=== PATIENT | female | born 1950 | race Caucasian/White ===

== ENCOUNTER 2018-04-18 10:16 | Day surgery (SDC) | payer OTHER ==
[~2018-04-18] VITALS: Ht 175.3 cm; Wt 82.6 kg
[~2018-04-18 10:16] MED LIST: BUPIVAC MPF-EPI 0.5%-1:200000 30 ML VIAL. INJ ONE; HYDR200T71 PO; HYDROmorphone 2 MG/ML VIAL IV PRN; IBUP-1007 PO; IV RINGERS,LACTATED 1000ML 1,000 ML IV SCH; LIDOCAINE 1% PF 2 ML VIAL. ID PRN; MORPHINE SULFATE 4 MG/ML VIAL. IV PRN; ONDANSETRON PF 4 MG/2 ML VIAL. IV PRN; PROCHLORPERAZINE 10 MG/2 ML VIAL. IV PRN; SULI200T2 PO; fentaNYL PF VIAL 100 MCG/2 ML VIAL IV PRN
[2018-04-18] MEDS ORDERED: fentaNYL PF VIAL 100 MCG/2 ML VIAL ONE (10:50)
[2018-04-18] MEDS ORDERED: ROCURONIUM 50 MG/5 ML VIAL. ONE (10:50)
[2018-04-18] MEDS ORDERED: MIDAZOLAM HCL/PF 2 MG/2 ML VIAL. ONE (10:51)
[2018-04-18] MEDS ORDERED: HEPARIN PF 500 UNIT/5 ML DISP.SYRIN. IV ONE ×2 (11:09)
[2018-04-18] MEDS ORDERED: HEPARIN for IV BOLUS 10,000 UNIT/10 ML VIAL. ONE (11:09)
[2018-04-18] MEDS ORDERED: DEXAMETHASONE SOD PHOS 20 MG/5 ML VIAL. ONE (11:33)
[2018-04-18] MEDS ORDERED: LIDOCAINE 2% PF Vial for OR 5 ML VIAL. ONE (11:33)
[2018-04-18] MEDS ORDERED: PROPOFOL 20 ML IV ONE (11:33)
[2018-04-18] MEDS ORDERED: ONDANSETRON PF 4 MG/2 ML VIAL. ONE (11:33)
[2018-04-18] MEDS ORDERED: FAMOTIDINE 20 MG/2 ML VIAL ONE (11:33)
[2018-04-18] MEDS ORDERED: PHENYLEPHRINE in 0.9% NACL PF 1 MG/10 ML SYRINGE. IV ONE (11:42)
[2018-04-18] MEDS ORDERED: BUPIVACAINE MPF 0.5% 30 ML VIAL. ONE (11:46)
[2018-04-18] MEDS ORDERED: NEOSTIGMINE 10 MG/10 ML VIAL. ONE (12:14)
[2018-04-18] MEDS ORDERED: GLYCOPYRROLATE 1 MG/5 ML VIAL. ONE (12:14)
[2018-04-18] MEDS ORDERED: VASOPRESSIN 20 UNIT/ML VIAL. ONE (12:47)
[2018-04-18] MEDS ORDERED: SEVOFLURANE 61 TO 120 MINUTES. IH ONE (13:18)
--- NOTE | 2018-04-18 13:30 | PDOC4 ---
Operative Note Operative Note Date: 04/18/2018 Preoperative diagnosis: Esophageal cancer Postoperative diagnosis: Same Procedure: Left cephalic Port-A-Cath placement and gastrostomy tube placement Specimen: None Surgeon: Humza Dictation: Patient is a 67-year-old female has a nearly obstructing esophageal cancer is needing chemotherapy radiation for this she needs long-term venous access and a enteral feeding access. The procedure of Port-A-Cath placement and gastrostomy tube placement was explained to the patient in detail was benefits were also discussed including bleeding infection injury to intra-abdominal contents possibly needing further operations. Alternatives to this procedure also discussed with the patient is seemed to understand and gave verbal and written consent to have the procedure performed. Patient was taken to the operating room placed in supine position general anesthesia was initiated was patient was sleeping better neck and chest on both right and left were prepped and draped usual sterile fashion using ChloraPrep and area in the left deltopectoral groove was injected with percent Marcaine plain once this was injected and incision was made 15 blade scalpel was carried out through subcutaneous tissues using electrocautery divided hemostasis down to the cephalic vein which was controlled proximally distally with silk ligatures the vein was partially opened with 11 blade scalpel and a Salinger wire was placed into the cephalic vein passed into the superior vena cava as checked by fluoroscopy. Once this was complete a peel-away dilator was placed over the wire wire and the dilator removed catheter was placed in the peel-away which was then removed port was placed on the end of the catheter and a pocket on the anterior chest wall was made the catheter was sewn into place fluoroscopy showed good placement of the catheter within superior vena cava. There was good heparin flush as well as aspiration of blood. Wound was then closed in 2 layers the deep layer being 3-0 Vicryl and the skin reapproximated for septic to the Monocryl was then accessed again there was good blood return and it was locked with 1000 units of heparin 3 miller were used. This was then dressed with Mastisol Steri-Strips and island dressing. Once this was complete the patient's abdomen was prepped and draped usual sterile fashion using ChloraPrep and area in the left upper quadrant was injected with quarter percent Marcaine with epinephrine incision Bailin blade scalpel and a 5 mm Visiport was used to gain access to the abdomen and a pneumoperitoneum completed a second 5 mm port was placed in the left lower abdomen some adhesions in the left upper quadrant were taken down with sharp dissection at this point a 12 mm port was then placed in the left upper quadrant E stomach was grasped and brought up into the port and pneumoperitoneum was reduced and the port was removed the stomach was brought up into the wound 3-0 PDS was then used to tack the stomach stomach was then opened with a gastrotomy incision and a 22 Romansh gastrostomy tube was placed within the stomach the balloon was insufflated to 10 mL the 3-0 PDS was then used as pursestrings around the tube on the gastric surface and then attached to the fascia. The wound was then closed with a running 3-0 Vicryl and the skin was approximated for septic to Monocryl. Drain sponge was placed and the tube was anchored to the skin with a 3-0 nylon. The other port sites were closed for septic or Monocryl Mastisol Steri-Strips island dressings were applied. The patient was awakened and extubated in operating room taken to recovery in stable condition. All sponge instrument and needle counts listed as correct isthmic blood loss 30 mL. LASHAUN IZQUIERDO MD Apr 18, 2018 13:30
--- NOTE | 2018-04-18 13:36 | DISCH ---
DISCHARGE INSTRUCTIONS Condition on Discharge Condition on Discharge: Stable Activity After Discharge Activity Instructions for Disc: Avoid exertion Diet after Discharge Additional Diet Restrictions: May use the gastrostomy tube in 24 hours Wound Incision Care Other wound/incision instructi: May shower in 24 hours Contacting the after DC Call your doctor for: If your condition worsens Follow-Up Follow up with: Dr. Izquierdo in 2 weeks LASHAUN IZQUIERDO MD Apr 18, 2018 13:36
[2018-04-18] MEDS ORDERED: HYDR15SO9 PO (13:57)
[2018-04-18] MEDS ORDERED: KETOROLAC 30 MG/ML VIAL. IV ONE (14:00)
[2018-04-18 15:00] VITALS: BP 128/41
[2018-04-18] MEDS ORDERED: HYDROcodon/APAP 7.5/325MG ORAL 15 ML SOLUTION PO ONE (15:30)
== END 2018-04-18 16:04 | disposition home or self-care (01) ==
LOC: SURG 10:16
PROVIDERS: ATTEND Surgery
DX: C15.9 Malignant neoplasm of esophagus, unspecified (principal); M06.9 Rheumatoid arthritis, unspecified; H26.9 Unspecified cataract; M81.0 Age-related osteoporosis without current pathological fracture; M85.80 Other specified disorders of bone density and structure, unspecified site; L57.0 Actinic keratosis; Z90.49 Acquired absence of other specified parts of digestive tract; Z79.899 Other long term (current) drug therapy; Z96.652 Presence of left artificial knee joint; Z98.51 Tubal ligation status; Z82.49 Family history of ischemic heart disease and other diseases of the circulatory system; Z82.3 Family history of stroke; Z84.1 Family history of disorders of kidney and ureter; Z83.518 Family history of other specified eye disorder
CPT/HCPCS: 36561; 43653; A7015; C1788; J0696; J1100; J1644; J1885; J2001; J2250; J2370; J2405; J2704; J2710; J3010; J3490; 36556; 77001

== ENCOUNTER 2018-04-19 18:08 | Inpatient (IN) | payer OTHER ==
[~2018-04-19] VITALS: Ht 175.3 cm; Wt 84.0 kg
[~2018-04-19 18:08] MED LIST changes: -BUPIVAC MPF-EPI 0.5%-1:200000 30 ML VIAL. INJ ONE; +HYDR15SO9 PO; -HYDROmorphone 2 MG/ML VIAL IV PRN; -IV RINGERS,LACTATED 1000ML 1,000 ML IV SCH; -LIDOCAINE 1% PF 2 ML VIAL. ID PRN; -MORPHINE SULFATE 4 MG/ML VIAL. IV PRN; -ONDANSETRON PF 4 MG/2 ML VIAL. IV PRN; -PROCHLORPERAZINE 10 MG/2 ML VIAL. IV PRN; -fentaNYL PF VIAL 100 MCG/2 ML VIAL IV PRN
[2018-04-19 19:30] VITALS: BP 108/58
--- NOTE | 2018-04-19 19:30 | NUR ---
ADMIT Pt arrived on unit via gurney from [facility] ER. Pt fatigued, A/Ox4, room air. VSS, afebrile. Full admission assessment completed at this time. PEG tube in place, sutured, open to air. 2 Lap sites with steri strips in place on abdomen. Zander Cath Incision site Left Upper chest with steri strips, intact. Fall contact signed. Discussed plan of care, NPO, call for assistance. PEG site cleansed with chloraprep, drain sponge applied, suture intact. Lap site steri strips on, telfa islands changed at this time. Old saturated steri strips removed from Zander cath site, cleansed and applied 4x4 and tape. Admission orders rec'd at this time. Initiated new IV Access, IVF started and pain and nausea meds given. This RN called daughter to advise of admission. Call light w/ in reach, bed in low, locked position. Will continue to monitor closely.
[2018-04-19 21:00] VITALS: BP 105/68
[2018-04-19] MEDS: IV NORMAL SALINE 1000ML BAG 1,000 ML IV SCH (21:52)
--- NOTE | 2018-04-19 22:30 | NUR ---
Patient unable to void. Advised she has the urge to go, but unable to. Pt advised [facility] ED performed a catheter and removed 300cc about 1800. Bladder scan performed at this time and 251cc retained. Will encourage to urinate, and rescan as needed.
[2018-04-19] MEDS: ONDANSETRON PF 4 MG/2 ML VIAL. IV PRN (22:36)
[2018-04-19] MEDS: MORPHINE SULFATE 4 MG/ML VIAL. IV PRN (22:36)
[2018-04-19 23:00] VITALS: BP 105/68
[2018-04-20] VITALS (15 sets, daily range): BP systolic 84–127; BP diastolic 44–68
[2018-04-20 06:31] LABS: BASO % 0 % (0-3); EOS % 0 % (0-3); HEMATOCRIT 27.1 % (36.0-47.0); HEMOGLOBIN 8.2 g/dL (12.0-15.5); LYMPH # 0.2 x10^3/uL (1.0-4.8); LYMPH % 1 % (24-48); MEAN CORPUSCULAR HEMOGLOBIN 19 pg (25-35); MEAN CORPUSCULAR HGB CONC 30 g/dL (31-37); MEAN CORPUSCULAR VOLUME 62 fL (79-100); MONO # 1.4 x10^3/uL (0.0-1.1); MONO % 13 % (0-9); NEUT # 9.4 x10^3uL (1.8-7.7); NEUT % 86 % (31-73); PLATELET COUNT 204 x10^3/uL (140-400); RED BLOOD COUNT 4.36 x10^6/uL (3.50-5.40); RED CELL DISTRIBUTION WIDTH 26.2 % (11.5-14.5)
[2018-04-20 06:46] LABS: PROTHROMBIN TIME PATIENT 14.9 SEC (11.7-14.0)
--- NOTE | 2018-04-20 06:48 | NUR ---
Pt had repeat bladder scan and retaining 400-450cc. Patient does not have urge to urinate. paged to notify.
[2018-04-20 06:53] LABS: CALCIUM 8.6 mg/dL (8.5-10.1); GFR 55.1; POTASSIUM 4.3 mmol/L (3.5-5.1)
[2018-04-20 07:24] LABS: % LYMPHS 2 % (24-48)
[2018-04-20 07:25] LABS: % BANDS 49 % (0-9); % MONOS 6 % (0-10); % SEGS 43 % (35-66); PLT ESTIMATE ADEQUATE (ADEQUATE)
[2018-04-20 07:28] LABS: ANISOCYTOSIS MARKED; HYPOCHROMIA MOD; MICROCYTOSIS MARKED
[2018-04-20 07:29] LABS: POIKILOCYTOSIS PRESENT; POLYCHROMASIA PRESENT; SPHEROCYTES OCC; TARGET CELLS FEW
[2018-04-20 07:30] LABS: OVALOCYTES PRESENT
[2018-04-20 07:31] LABS: SCHISTOCYTES OCC
[2018-04-20] MEDS ORDERED: IV NORMAL SALINE 1000ML BAG 1,000 ML IV ONE (08:15)
--- NOTE | 2018-04-20 08:22 | RAD ---
EXAM: Supine AP view of the abdomen DATE: 04/20/2018 6:51 AM INDICATION: PEG MALFUNCTION COMPARISON: No Prior FINDINGS: No abnormal small or large bowel dilatation. Mild colonic stool content. No abnormal soft tissue mass effect. No suspicious calcifications are seen. Evaluation for free intraperitoneal gas is limited on this supine exam. Decreased bone mineral density. Right renal collecting system is seen, with minimal blunting of the calyces, likely mild hydronephrosis and and hydroureter. The left renal collecting system is only minimally seen. IMPRESSION: 1. No evidence of bowel obstruction. 2. PEG tube tip projects in the left upper quadrant, intraluminal positioning is not confirmed. 3. Mild right hydronephrosis and hydroureter. Only minimal opacification of the left renal collecting system, correlate for possible obstruction, left renal disease, or pace of contrast excretion. Ultrasound may provide additional details if clinically indicated. Electronically signed by: Keny Walter MD (04/20/2018 8:18 AM) [facility]
--- NOTE | 2018-04-20 08:46 | PDOC2 ---
QUINTONJANET Margaret APARTMENT MANAGER 04/20/18 0846: CONSULT Date of Consult Date of Consult DATE: 04/20/18 TIME: 08:39 Reason for Consult Reason for Consult: malpositioned g tube Referring Physician Referring Physician: ER Identification/Chief Complaint Chief Complaint leaking g tube Source Source: Chart review, Patient History of Present Illness Reason for Visit: G tube placed 04/[address] Ching for dysphagia and esophageal cancer. Attempts to use tube yesterday resulted in significant amount of leakage around tube. Seen in ER at [facility] contrasted KUB showed extravasation of contrast. Mild abdominal pain, no n/v Past Medical History Heme/Onc: Cancer (esophageal ) Psych: Depression Past Surgical History Past Surgical History: Cholecystectomy, Other (port, g tube) Family History Family History: Other (noncontributory to current illness ) Social History No ALCOHOL: none Drugs: None Lives: Alone Current Medications Current Medications Current Medications Sodium Chloride 1,000 ml @ 100 mls/hr Q10H IV Last administered on 04/19/18at 21:52; Start 04/19/18 at 21:00 Morphine Sulfate (Morphine Sulfate) 2 mg PRN Q4HRS PRN IV SEVERE PAIN Last administered on 04/19/18at 22:36; Start 04/19/18 at 21:00 Ondansetron HCl (Zofran) 4 mg PRN Q6HRS PRN IV NAUSEA/VOMITING 1ST CHOICE Last administered on 04/19/18at 22:36; Start 04/19/18 at 21:00 Sodium Chloride 1,000 ml @ 1,000 mls/hr 1X ONCE IV ; Start 04/20/18 at 08:15; Stop 04/20/18 at 09:14 Ceftriaxone Sodium (Rocephin) 1 gm Q24H IVP ; Start 04/20/18 at 09:00 Active Scripts Active Reported Hydrocodone-Acetamn 7.5-325/15 (Hydrocodone/Acetaminophen) 15 Ml Solution 15 Ml PO Q4HRS Plaquenil (Hydroxychloroquine Sulfate) 200 Mg Tablet 200 Mg PO BID Sulindac 200 Mg Tablet 200 Mg PO BID Ibuprofen 600 Mg Tablet 600 Mg PO PRN Q6HRS PRN Allergies Allergies: Coded Allergies: No Known Drug Allergies (Unverified , 04/18/18) ROS General: No: Chills, Other (fevers) PSYCHOLOGICAL ROS: No: Anxiety, Depression Eyes: No Blurry vision, No Double vision HEENT: No: Heacaches, Sore Throat Hematological and Lymphatic: No: Bleeding Problems, Blood Clots Respiratory: No: Cough, Shortness of breath Cardiovascular: No Chest Pain, No Palpitations Gastrointestinal: No Nausea, No Vomiting Genitourinary: No Dysuria, No Retention Musculoskeletal: No Joint Pain, No Muscle Pain Neurological: No Bowel/Bladder ControlChng, No Impaired Coord/balance Skin: No Pruritus, No Rash Physical Exam General: Alert, Oriented X3, Cooperative, No acute distress HEENT: PERRLA, Mucous membr. moist/pink Lungs: Clear to auscultation, Normal air movement Heart: Regular rate, Normal S1, Normal S2, No murmurs Abdomen: Soft, Other (ND, NTTP, gtube noted, lap sites ) Extremities: No clubbing, No cyanosis Skin: No rashes, No breakdown Neuro: Normal gait, Normal speech Psych/Mental Status: Mental status NL, Mood NL MUSCULOSKELETAL: No deformity, No swelling Vitals VITALS Vital Signs Date Time Temp Pulse Resp B/P (MAP) Pulse Ox O2 Delivery O2 Flow Rate FiO2 04/20/18 07:10 118 18 91/63 (72) 94 Room Air 04/20/18 07:00 97.4 97.4 Labs Labs Laboratory Tests Test 04/20/18 05:25 04/20/18 05:54 White Blood Count 11.0 x10^3/uL (4.0-11.0) Red Blood Count 4.36 x10^6/uL (3.50-5.40) Hemoglobin 8.2 g/dL (12.0-15.5) Hematocrit 27.1 % (36.0-47.0) Mean Corpuscular Volume 62 fL (79-100) Mean Corpuscular Hemoglobin 19 pg (25-35) Mean Corpuscular Hemoglobin Concent 30 g/dL (31-37) Red Cell Distribution Width 26.2 % (11.5-14.5) Platelet Count 204 x10^3/uL (140-400) Neutrophils (%) (Auto) 86 % (31-73) Lymphocytes (%) (Auto) 1 % (24-48) Monocytes (%) (Auto) 13 % (0-9) Eosinophils (%) (Auto) 0 % (0-3) Basophils (%) (Auto) 0 % (0-3) Neutrophils # (Auto) 9.4 x10^3uL (1.8-7.7) Lymphocytes # (Auto) 0.2 x10^3/uL (1.0-4.8) Monocytes # (Auto) 1.4 x10^3/uL (0.0-1.1) Eosinophils # (Auto) 0.0 x10^3/uL (0.0-0.7) Basophils # (Auto) 0.0 x10^3/uL (0.0-0.2) Segmented Neutrophils % 43 % (35-66) Band Neutrophils % 49 % (0-9) Lymphocytes % 2 % (24-48) Monocytes % 6 % (0-10) Platelet Estimate Adequate (ADEQUATE) Large Platelets Few Polychromasia Present Hypochromasia Mod Poikilocytosis Present Anisocytosis Marked Microcytosis Marked Spherocytes Occ Target Cells Few Ovalocytes Present Schistocytes Occ Sodium Level 146 mmol/L (136-145) Potassium Level 4.3 mmol/L (3.5-5.1) Chloride Level 110 mmol/L (98-107) Carbon Dioxide Level 26 mmol/L (21-32) Anion Gap 10 (6-14) Blood Urea Nitrogen 39 mg/dL (7-20) Creatinine 1.0 mg/dL (0.6-1.0) Estimated GFR (Cockcroft-Gault) 55.1 Glucose Level 134 mg/dL (70-99) Calcium Level 8.6 mg/dL (8.5-10.1) Prothrombin Time 14.9 SEC (11.7-14.0) Prothromb Time International Ratio 1.2 (0.8-1.1) Laboratory Tests Test 04/20/18 05:25 04/20/18 05:54 White Blood Count 11.0 x10^3/uL (4.0-11.0) Red Blood Count 4.36 x10^6/uL (3.50-5.40) Hemoglobin 8.2 g/dL (12.0-15.5) Hematocrit 27.1 % (36.0-47.0) Mean Corpuscular Volume 62 fL (79-100) Mean Corpuscular Hemoglobin 19 pg (25-35) Mean Corpuscular Hemoglobin Concent 30 g/dL (31-37) Red Cell Distribution Width 26.2 % (11.5-14.5) Platelet Count 204 x10^3/uL (140-400) Neutrophils (%) (Auto) 86 % (31-73) Lymphocytes (%) (Auto) 1 % (24-48) Monocytes (%) (Auto) 13 % (0-9) Eosinophils (%) (Auto) 0 % (0-3) Basophils (%) (Auto) 0 % (0-3) Neutrophils # (Auto) 9.4 x10^3uL (1.8-7.7) Lymphocytes # (Auto) 0.2 x10^3/uL (1.0-4.8) Monocytes # (Auto) 1.4 x10^3/uL (0.0-1.1) Eosinophils # (Auto) 0.0 x10^3/uL (0.0-0.7) Basophils # (Auto) 0.0 x10^3/uL (0.0-0.2) Segmented Neutrophils % 43 % (35-66) Band Neutrophils % 49 % (0-9) Lymphocytes % 2 % (24-48) Monocytes % 6 % (0-10) Platelet Estimate Adequate (ADEQUATE) Large Platelets Few Polychromasia Present Hypochromasia Mod Poikilocytosis Present Anisocytosis Marked Microcytosis Marked Spherocytes Occ Target Cells Few Ovalocytes Present Schistocytes Occ Sodium Level 146 mmol/L (136-145) Potassium Level 4.3 mmol/L (3.5-5.1) Chloride Level 110 mmol/L (98-107) Carbon Dioxide Level 26 mmol/L (21-32) Anion Gap 10 (6-14) Blood Urea Nitrogen 39 mg/dL (7-20) Creatinine 1.0 mg/dL (0.6-1.0) Estimated GFR (Cockcroft-Gault) 55.1 Glucose Level 134 mg/dL (70-99) Calcium Level 8.6 mg/dL (8.5-10.1) Prothrombin Time 14.9 SEC (11.7-14.0) Prothromb Time International Ratio 1.2 (0.8-1.1) Assessment/Plan Assessment/Plan malpositioned g tube g tube only 2 days old--will require surgical repair Dr Vásquez plans today CANDICE VÁSQUEZ MD 04/20/18 1536: CONSULT Assessment/Plan Assessment/Plan Pt seen and examined. Agree with MsAilyn Euceda's note Pt with c/o mild soreness abd soft, mild TTP LUQ TO OR for replacement of G-tube R/R/B/A d/w pt. Risks, including, but not limited to: bleeding, infection, damage to surrounding structures, risk of anesthesia, risk of open. She appears to understand, her questions are answered and she elects to proceed. Thanks for consult! JANET EUCEDA APRN Apr 20, 2018 08:46 CANDICE VÁSQUEZ MD Apr 20, 2018 15:36
[2018-04-20] MEDS: ONDANSETRON PF 4 MG/2 ML VIAL. IV PRN (10:04)
[2018-04-20] MEDS: MORPHINE SULFATE 4 MG/ML VIAL. IV PRN (10:04)
[2018-04-20] MEDS: cefTRIAXone IV Push 1 GM VIAL. IVP SCH (10:04)
[2018-04-20] MEDS: IV NORMAL SALINE 1000ML BAG 1,000 ML IV SCH ×2 (10:05→18:17)
--- NOTE | 2018-04-20 10:57 | PDOC1 ---
History and Physical Date of Admission Date of Admission DATE: 04/20/18 TIME: 10:55 Identification/Chief Complaint Chief Complaint FAILED Attempts to use tube yesterday resulted in significant amount of leakage around tube. Past Medical History Heme/Onc: Cancer (esophageal ) Psych: Depression Past Surgical History Past Surgical History: Cholecystectomy, Other (port, g tube) Family History Family History: Hypertension, Other (noncontributory to current illness ) Social History Smoke: No ALCOHOL: none Drugs: None Current Medications Current Medications Current Medications Sodium Chloride 1,000 ml @ 100 mls/hr Q10H IV Last administered on 04/20/18 10:05; Start 04/19/18 at 21:00 Morphine Sulfate (Morphine Sulfate) 2 mg PRN Q4HRS PRN IV SEVERE PAIN Last administered on 04/20/18 10:04; Start 04/19/18 at 21:00 Ondansetron HCl (Zofran) 4 mg PRN Q6HRS PRN IV NAUSEA/VOMITING 1ST CHOICE Last administered on 04/20/18 10:04; Start 04/19/18 at 21:00 Sodium Chloride 1,000 ml @ 1,000 mls/hr 1X ONCE IV Last administered on 10:05; Start 04/20/18 at 08:15; Stop 04/20/18 at 09:14; Status DC Ceftriaxone Sodium (Rocephin) 1 gm Q24H IVP Last administered on 04/20/18 10: 04; Start 04/20/18 at 09:00 Active Scripts Active Reported Hydrocodone-Acetamn 7.5-325/15 (Hydrocodone/Acetaminophen) 15 Ml Solution 15 Ml PO Q4HRS Plaquenil (Hydroxychloroquine Sulfate) 200 Mg Tablet 200 Mg PO BID Sulindac 200 Mg Tablet 200 Mg PO BID Ibuprofen 600 Mg Tablet 600 Mg PO PRN Q6HRS PRN Allergies Allergies: Coded Allergies: No Known Drug Allergies (Unverified , 04/18/18) ROS General: YES: Fatigue PSYCHOLOGICAL ROS: No: Anxiety, Behavioral Disorder, Concentration difficultie , Decreased libido, Depression, Disorientation, Hallucinations, Hostility, Irritablity, Memory difficulties, Mood Swings, Obsessive thoughts, Physical abuse, Sexual abuse, Sleep disturbances, Suicidal ideation, Other Eyes: No Blurry vision, No Decreased vision, No Double vision, No Dry eyes, No Excessive tearing, No Eye Pain, No Itchy Eyes, No Loss of vision, No Photophobia , No Scotomata, No Uses contacts, No Uses glasses, No Other HEENT: No: Heacaches, Visual Changes, Hearing change, Nasal congestion, Nasal discharge, Oral lesions, Sinus pain, Sore Throat, Epistaxis, Sneezing, Snoring, Tinnitus, Vertigo, Vocal changes, Other ALLERGY AND IMMUNOLOGY: No: Hives, Insect Bite Sensitivity, Itchy/Watery Eyes, Nasal Congestion, Post Nasal Drip, Seasonal Allergies, Other Hematological and Lymphatic: No: Bleeding Problems, Blood Clots, Blood Transfusions, Brusing, Night Sweats, Pallor, Swollen Lymph Nodes, Other ENDOCRINE: No: Breast Changes, Galactorrhea, Hair Pattern Changes, Hot Flashes , Malaise/lethargy, Mood Swings, Palpitations, Polydipsia/polyuria, Skin Changes , Temperature Intolerance, Unexpected Weight Changes, Other Breast: No New/Changing Breast Lumps, No Nipple changes, No Nipple discharge, No Other Gastrointestinal: Yes Abdominal Pain; No Nausea, No Vomiting, No Diarrhea, No Constipation, No Melena, No Hematochezia, No Other Genitourinary: No Dysuria, No Frequency, No Incontinence, No Hematuria, No Retention, No Discharge, No Urgency, No Pain, No Flank Pain, No Other, No , No , No , No , No , No , No Musculoskeletal: No Gait Disturbance, No Joint Pain, No Joint Stiffness, No Joint Swelling, No Muscle Pain, No Muscular Weakness, No Pain In:, No Swelling In:, No Other Neurological: No Behavorial Changes, No Bowel/Bladder ControlChng, No Confusion , No Dizziness, No Gait Disturbance, No Headaches, No Impaired Coord/balance, No Memory Loss, No Numbness/Tingling, No Seizures, No Speech Problems, No Tremors, No Visual Changes, No Weakness, No Other Skin: No Dry Skin, No Eczema, No Hair Changes, No Lumps, No Mole Changes, No Mottling, No Nail Changes, No Pruritus, No Rash, No Skin Lesion Changes, No Other, No Acne Physical Exam Physical Exam hysical Exam General: Alert, Oriented X3, Cooperative, No acute distress HEENT: PERRLA, Mucous membr. moist/pink Lungs: Clear to auscultation, Normal air movement Heart: Regular rate, Normal S1, Normal S2, No murmurs Abdomen: Soft, Other (ND, NTTP, gtube noted, lap sites ) Extremities: No clubbing, No cyanosis Skin: No rashes, No breakdown Neuro: Normal gait, Normal speech Psych/Mental Status: Mental status NL, Mood NL MUSCULOSKELETAL: No deformity, No swelling General: Oriented X3, Cooperative HEENT: Atraumatic, EOMI Lungs: Normal air movement Heart: no gallops Breasts: Not examined Abdomen: No hepatosplenomegaly Rectal Exam: not examined PELVIC: Examination not indicated Extremities: No cyanosis Neuro: Normal speech, Cranial nerves 3-12 NL Psych/Mental Status: Mental status NL Vitals Vitals Vital Signs Date Time Temp Pulse Resp B/P (MAP) Pulse Ox O2 Delivery O2 Flow Rate FiO2 04/20/18 10:04 97 Room Air 04/20/18 09:58 111 16 103/66 (78) 04/20/18 07:00 97.4 97.4 Labs Labs Laboratory Tests Test 04/20/18 05:25 04/20/18 05:54 White Blood Count 11.0 x10^3/uL (4.0-11.0) Red Blood Count 4.36 x10^6/uL (3.50-5.40) Hemoglobin 8.2 g/dL (12.0-15.5) Hematocrit 27.1 % (36.0-47.0) Mean Corpuscular Volume 62 fL (79-100) Mean Corpuscular Hemoglobin 19 pg (25-35) Mean Corpuscular Hemoglobin Concent 30 g/dL (31-37) Red Cell Distribution Width 26.2 % (11.5-14.5) Platelet Count 204 x10^3/uL (140-400) Neutrophils (%) (Auto) 86 % (31-73) Lymphocytes (%) (Auto) 1 % (24-48) Monocytes (%) (Auto) 13 % (0-9) Eosinophils (%) (Auto) 0 % (0-3) Basophils (%) (Auto) 0 % (0-3) Neutrophils # (Auto) 9.4 x10^3uL (1.8-7.7) Lymphocytes # (Auto) 0.2 x10^3/uL (1.0-4.8) Monocytes # (Auto) 1.4 x10^3/uL (0.0-1.1) Eosinophils # (Auto) 0.0 x10^3/uL (0.0-0.7) Basophils # (Auto) 0.0 x10^3/uL (0.0-0.2) Segmented Neutrophils % 43 % (35-66) Band Neutrophils % 49 % (0-9) Lymphocytes % 2 % (24-48) Monocytes % 6 % (0-10) Platelet Estimate Adequate (ADEQUATE) Large Platelets Few Polychromasia Present Hypochromasia Mod Poikilocytosis Present Anisocytosis Marked Microcytosis Marked Spherocytes Occ Target Cells Few Ovalocytes Present Schistocytes Occ Sodium Level 146 mmol/L (136-145) Potassium Level 4.3 mmol/L (3.5-5.1) Chloride Level 110 mmol/L (98-107) Carbon Dioxide Level 26 mmol/L (21-32) Anion Gap 10 (6-14) Blood Urea Nitrogen 39 mg/dL (7-20) Creatinine 1.0 mg/dL (0.6-1.0) Estimated GFR (Cockcroft-Gault) 55.1 Glucose Level 134 mg/dL (70-99) Calcium Level 8.6 mg/dL (8.5-10.1) Prothrombin Time 14.9 SEC (11.7-14.0) Prothromb Time International Ratio 1.2 (0.8-1.1) Laboratory Tests Test 04/20/18 05:25 04/20/18 05:54 White Blood Count 11.0 x10^3/uL (4.0-11.0) Red Blood Count 4.36 x10^6/uL (3.50-5.40) Hemoglobin 8.2 g/dL (12.0-15.5) Hematocrit 27.1 % (36.0-47.0) Mean Corpuscular Volume 62 fL (79-100) Mean Corpuscular Hemoglobin 19 pg (25-35) Mean Corpuscular Hemoglobin Concent 30 g/dL (31-37) Red Cell Distribution Width 26.2 % (11.5-14.5) Platelet Count 204 x10^3/uL (140-400) Neutrophils (%) (Auto) 86 % (31-73) Lymphocytes (%) (Auto) 1 % (24-48) Monocytes (%) (Auto) 13 % (0-9) Eosinophils (%) (Auto) 0 % (0-3) Basophils (%) (Auto) 0 % (0-3) Neutrophils # (Auto) 9.4 x10^3uL (1.8-7.7) Lymphocytes # (Auto) 0.2 x10^3/uL (1.0-4.8) Monocytes # (Auto) 1.4 x10^3/uL (0.0-1.1) Eosinophils # (Auto) 0.0 x10^3/uL (0.0-0.7) Basophils # (Auto) 0.0 x10^3/uL (0.0-0.2) Segmented Neutrophils % 43 % (35-66) Band Neutrophils % 49 % (0-9) Lymphocytes % 2 % (24-48) Monocytes % 6 % (0-10) Platelet Estimate Adequate (ADEQUATE) Large Platelets Few Polychromasia Present Hypochromasia Mod Poikilocytosis Present Anisocytosis Marked Microcytosis Marked Spherocytes Occ Target Cells Few Ovalocytes Present Schistocytes Occ Sodium Level 146 mmol/L (136-145) Potassium Level 4.3 mmol/L (3.5-5.1) Chloride Level 110 mmol/L (98-107) Carbon Dioxide Level 26 mmol/L (21-32) Anion Gap 10 (6-14) Blood Urea Nitrogen 39 mg/dL (7-20) Creatinine 1.0 mg/dL (0.6-1.0) Estimated GFR (Cockcroft-Gault) 55.1 Glucose Level 134 mg/dL (70-99) Calcium Level 8.6 mg/dL (8.5-10.1) Prothrombin Time 14.9 SEC (11.7-14.0) Prothromb Time International Ratio 1.2 (0.8-1.1) Images Images TECHNIQUE: Helical CT of the abdomen and pelvis without intravenous contrast. Axial, coronal and sagittal reformatted images were generated. PQRS compliance statement - One or more of the following individualized dose reduction techniques were utilized for this study: 1. Automated exposure control 2. Adjustment of the mA and/or kV according to patient size 3. Use of iterative reconstruction technique FINDINGS: Lack of intravenous contrast limits evaluation of solid organs, vasculature, and lymph nodes. Lower chest: 4 mm lingular lung nodule is seen. Trace right pleural effusion. Dependent opacities bilaterally likely atelectasis. Linear opacity lingula likely scarring/atelectasis. Abdomen and Pelvis: Within the constraints of noncontrast exam: No focal liver lesion. Accounting for postcholecystectomy change, no biliary ductal dilatation. Spleen is unremarkable. Adrenal glands are normal. Pancreas is unremarkable. Kidneys are normal in size and shape. There is mild right hydronephrosis with mild right caliectasis and dilation of the proximal right ureter. However this gradually tapers to a more normal caliber and distally is not seen. No left hydronephrosis or hydroureter. The the reason for the asymmetric appearance with the left kidney and ureter were not definitively seen on prior radiograph with likely likely due to decompressed state. No asymmetric retention of contrast material within the kidneys. PEG tube is seen within the subcutaneous soft tissues. Associated fat infiltration and thickening is seen. No evidence for bowel obstruction. There is free intraperitoneal gas. In addition there is free fluid in mild high density material within the pelvis, most prominent in the retrouterine space. No evidence for bowel obstruction. Contrast-filled bladder is otherwise unremarkable. Prominent mesenteric and retroperitoneal lymph nodes, likely reactive. No lymphadenopathy by size criteria. Bones: Degenerative changes of the spine are seen. IMPRESSION: 1. The gastrostomy tube tip terminates within the subcutaneous soft tissues. Associated free intraperitoneal gas and fluid is seen. Regions of the ventricular hypodensity in the pelvis, possibly hemorrhagic products or prior contrast administration. 2. Right renal caliectasis and dilation of the proximal right ureter/renal pelvis transitions to normal caliber distally. Given the lack of abrupt change or obstructing lesion, this may be physiologic for this patient. 3. 4 mm lingular lung nodule. In a high-risk patient follow-up CT in one year is recommended. Findings of PEG tube placement and free intraperitoneal gas and fluid discussed with the patient's nurse at approximately 04/20/2018, 12:45 PM. Electronically signed by: Keny Walter MD (04/20/2018 12:55 PM) [facility] DICTATED and SIGNED BY: KENY WALTER MD DATE: 04/20/18 1234 REASON: PEG Malfunction 426 PROCEDURE: KUB EXAM: Supine AP view of the abdomen DATE: 04/20/2018 6:51 AM INDICATION: PEG MALFUNCTION COMPARISON: No Prior FINDINGS: No abnormal small or large bowel dilatation. Mild colonic stool content. No abnormal soft tissue mass effect. No suspicious calcifications are seen. Evaluation for free intraperitoneal gas is limited on this supine exam. Decreased bone mineral density. Right renal collecting system is seen, with minimal blunting of the calyces, likely mild hydronephrosis and and hydroureter. The left renal collecting system is only minimally seen. IMPRESSION: 1. No evidence of bowel obstruction. 2. PEG tube tip projects in the left upper quadrant, intraluminal positioning is not confirmed. 3. Mild right hydronephrosis and hydroureter. Only minimal opacification of the left renal collecting system, correlate for possible obstruction, left renal disease, or pace of contrast excretion. Ultrasound may provide additional details if clinically indicated. Electronically signed by: Keny Walter MD (04/20/2018 8:18 AM) [facility] DICTATED and SIGNED BY: KENY WALTER MD DATE: 04/20/18 0815 VTE Prophylaxis Ordered VTE Prophylaxis Devices: Yes VTE Pharmacological Prophylaxi: Yes Assessment/Plan Assessment/Plan IMPRESSION RECENT PEG tube placement and free intraperitoneal gas and fluid possible mild hydronephrosis and right hydroureter HX esophageal ca new dx PLAN GEN SURG CONSULT urology consult CT ABD/PELVIS, UA will require surgical repair Operative Note Date: 04/18/2018 Preoperative diagnosis: Esophageal cancer Postoperative diagnosis: Same Procedure: Left cephalic Port-A-Cath placement and gastrostomy tube placement Specimen: None Surgeon: Humza Dictation: Patient is a 67-year-old female has a nearly obstructing esophageal cancer is needing chemotherapy radiation for this she needs long-term venous access and a enteral feeding access. The procedure of Port-A-Cath placement and gastrostomy tube placement was explained to the patient in detail was benefits were also discussed including bleeding infection injury to intra-abdominal contents possibly needing further operations. Alternatives to this procedure also discussed with the patient is seemed to understand and gave verbal and written consent to have the procedure performed. Patient was taken to the operating room placed in supine position general anesthesia was initiated was patient was sleeping better neck and chest on both right and left were prepped and draped usual sterile fashion using ChloraPrep and area in the left deltopectoral groove was injected with percent Marcaine plain once this was injected and incision was made 15 blade scalpel was carried out through subcutaneous tissues using electrocautery divided hemostasis down to the cephalic vein which was controlled proximally distally with silk ligatures the vein was partially opened with 11 blade scalpel and a Salinger wire was placed into the cephalic vein passed into the superior vena cava as checked by fluoroscopy. Once this was complete a peel-away dilator was placed over the wire wire and the dilator removed catheter was placed in the peel-away which was then removed port was placed on the end of the catheter and a pocket on the anterior chest wall was made the catheter was sewn into place fluoroscopy showed good placement of the catheter within superior vena cava. There was good heparin flush as well as aspiration of blood. Wound was then closed in 2 layers the deep layer being 3-0 Vicryl and the skin reapproximated for septic to the Monocryl was then accessed again there was good blood return and it was locked with 1000 units � of heparin 3 miller were used. This was then dressed with Mastisol Steri-Strips and island dressing. Once this was complete the patient's abdomen was prepped and draped usual sterile fashion using ChloraPrep and area in the left upper quadrant was injected with quarter percent Marcaine with epinephrine incision Bailin blade scalpel and a 5 mm Visiport was used to gain access to the abdomen and a pneumoperitoneum completed a second 5 mm port was placed in the left lower abdomen some adhesions in the left upper quadrant were taken down with sharp dissection at this point a 12 mm port was then placed in the left upper quadrant E stomach was grasped and brought up into the port and pneumoperitoneum was reduced and the port was removed the stomach was brought up into the wound 3-0 PDS was then used to tack the stomach stomach was then opened with a gastrotomy incision and a 22 Lao gastrostomy tube was placed within the stomach the balloon was insufflated to 10 mL the 3-0 PDS was then used as pursestrings around the tube on the gastric surface and then attached to the fascia. The wound was then closed with a running 3-0 Vicryl and the skin was approximated for septic to Monocryl. Drain sponge was placed and the tube was anchored to the skin with a 3-0 nylon. The other port sites were closed for septic or Monocryl Mastisol Steri-Strips island dressings were applied. The patient was awakened and extubated in operating room taken to recovery in stable condition. All sponge instrument and needle counts listed as correct isthmic blood loss 30 mL. LASHAUN IZQUIERDO MD, THOMAS W MD Apr 20, 2018 10:57
[2018-04-20 12:07] LABS: BILIRUBIN,URINE SMALL (NEG); CLARITY,URINE CLEAR; NITRITE,URINE NEGATIVE (NEG); PH,URINE 5.5; PROTEIN,URINE 30 mg/dL (NEG-TRACE); UROBILINOGEN,URINE 0.2 mg/dL (0.2 mg/dL)
[2018-04-20 12:08] LABS: COLOR,URINE YELLOW
[2018-04-20 12:17] LABS: HYALINE CASTS, URINE FEW /HPF; RBC,URINE >40 /HPF (0-2); SQUAMOUS EPITHELIAL CELL,UR FEW /LPF
[2018-04-20 12:18] LABS: BACTERIA,URINE FEW /HPF (0-FEW)
--- NOTE | 2018-04-20 12:59 | RAD ---
EXAM: CT Abdomen and Pelvis without IV contrast CLINICAL HISTORY: eval for hydronephrosis. COMPARISON: none TECHNIQUE: Helical CT of the abdomen and pelvis without intravenous contrast. Axial, coronal and sagittal reformatted images were generated. PQRS compliance statement - One or more of the following individualized dose reduction techniques were utilized for this study: 1. Automated exposure control 2. Adjustment of the mA and/or kV according to patient size 3. Use of iterative reconstruction technique FINDINGS: Lack of intravenous contrast limits evaluation of solid organs, vasculature, and lymph nodes. Lower chest: 4 mm lingular lung nodule is seen. Trace right pleural effusion. Dependent opacities bilaterally likely atelectasis. Linear opacity lingula likely scarring/atelectasis. Abdomen and Pelvis: Within the constraints of noncontrast exam: No focal liver lesion. Accounting for postcholecystectomy change, no biliary ductal dilatation. Spleen is unremarkable. Adrenal glands are normal. Pancreas is unremarkable. Kidneys are normal in size and shape. There is mild right hydronephrosis with mild right caliectasis and dilation of the proximal right ureter. However this gradually tapers to a more normal caliber and distally is not seen. No left hydronephrosis or hydroureter. The the reason for the asymmetric appearance with the left kidney and ureter were not definitively seen on prior radiograph with likely likely due to decompressed state. No asymmetric retention of contrast material within the kidneys. PEG tube is seen within the subcutaneous soft tissues. Associated fat infiltration and thickening is seen. No evidence for bowel obstruction. There is free intraperitoneal gas. In addition there is free fluid in mild high density material within the pelvis, most prominent in the retrouterine space. No evidence for bowel obstruction. Contrast-filled bladder is otherwise unremarkable. Prominent mesenteric and retroperitoneal lymph nodes, likely reactive. No lymphadenopathy by size criteria. Bones: Degenerative changes of the spine are seen. IMPRESSION: 1. The gastrostomy tube tip terminates within the subcutaneous soft tissues. Associated free intraperitoneal gas and fluid is seen. Regions of the ventricular hypodensity in the pelvis, possibly hemorrhagic products or prior contrast administration. 2. Right renal caliectasis and dilation of the proximal right ureter/renal pelvis transitions to normal caliber distally. Given the lack of abrupt change or obstructing lesion, this may be physiologic for this patient. 3. 4 mm lingular lung nodule. In a high-risk patient follow-up CT in one year is recommended. Findings of PEG tube placement and free intraperitoneal gas and fluid discussed with the patient's nurse at approximately 04/20/2018, 12:45 PM. Electronically signed by: Keny Walter MD (04/20/2018 12:55 PM) [facility]
[2018-04-20] MEDS ORDERED: LIDOCAINE 2% PF 5 ML VIAL. ONE (15:46)
[2018-04-20] MEDS ORDERED: PROPOFOL 20 ML IV ONE (15:46)
[2018-04-20] MEDS ORDERED: ONDANSETRON PF 4 MG/2 ML VIAL. ONE (15:47)
[2018-04-20] MEDS ORDERED: DEXAMETHASONE SOD PHOS 20 MG/5 ML VIAL. ONE (15:47)
[2018-04-20] MEDS ORDERED: ROCURONIUM 50 MG/5 ML VIAL. ONE (15:47)
[2018-04-20] MEDS ORDERED: fentaNYL PF VIAL 100 MCG/2 ML VIAL ONE ×2 (15:47→18:52)
[2018-04-20] MEDS ORDERED: BUPIVAC MPF-EPI 0.5%-1:200000 30 ML VIAL. ONE (16:22)
[2018-04-20] MEDS ORDERED: SEVOFLURANE 31 TO 60 MINUTES. IH ONE (16:35)
[2018-04-20] MEDS ORDERED: SUCCINYLCHOLINE 200 MG/10 ML VIAL. ONE (16:38)
--- NOTE | 2018-04-20 16:58 | RAD ---
CLINICAL HISTORY: Hydronephrosis, residual post-void volume on bladder scanner. COMPARISON: CT and KUB 04/20/2018. TECHNIQUE: Ultrasound examination of the bilateral kidneys and urinary bladder was performed. FINDINGS: The right kidney measures 10.4 cm in bipolar length. The renal cortex is normal in thickness. Renal echogenicity is normal. Mild right hydronephrosis. No focal renal lesion. The left kidney measures 11.5 cm in bipolar length. The renal cortex is normal in thickness. Renal echogenicity is normal. There is no evidence for hydronephrosis, shadowing renal calculus or focal abnormality. Bladder is mildly distended with mild internal debris. Fluid is profiled posterior to the uterus better profiled on prior CT. IMPRESSION: 1. Mild right hydronephrosis. 2. Debris within the bladder, may be seen with cystitis. 3. Free pelvic fluid is partially profiled. Electronically signed by: Keny Walter MD (04/20/2018 4:54 PM) [facility]
[2018-04-20] MEDS ORDERED: NEOSTIGMINE 10 MG/10 ML VIAL. ONE (17:08)
[2018-04-20] MEDS ORDERED: GLYCOPYRROLATE 1 MG/5 ML VIAL. ONE (17:08)
[2018-04-20] MEDS ORDERED: SEVOFLURANE 61 TO 120 MINUTES. IH ONE (17:26)
[2018-04-20] MEDS ORDERED: MORPHINE SULFATE/PF 30 ML IV PRN (18:15)
[2018-04-20] MEDS ORDERED: ONDANSETRON PF 4 MG/2 ML VIAL. IV PRN ×2 (18:15→19:00)
[2018-04-20] MEDS ORDERED: 0.9 % SODIUM CHLORIDE 10 ML DISP.SYRIN. IV PRN (18:15)
--- NOTE | 2018-04-20 18:15 | PDOC4 ---
OPERATIVE NOTE Date: Date: Apr 20, 2018 Pre-Op Diagnosis: Esophageal cancer, dislodged G-tube Post-Op Diagnosis: same Procedure Performed: Laparoscopic placement of G-tube Surgeon: Angelito Oropeza Anesthesia Type: GETA plus local Blood Loss: minimal Specimans Obtained: none Findings: Previous G-tube in SQ, some peritonitis Complications: none Operative Note: After obtaining informed consent, patient was taken to OR, induced under GETA and prepped in the usual fashion. Attempts at placing 5 mm ports via previous incisions unsuccessful secondary to obesity. 5 mm port placed umbilical under laparoscopic guidance. No evidence of fascia disruption from previous trocar attempts. 5 mm port placed LLQ through previous site. Abdominal cavity was explored and had some peritonitis. Copious irrigation. Previous G-tube was not noted to extended into abdominal cavity and was removed and discarded. 12 port placed through previous 12 port site and G-tube site. Stomach identified and previous suture identified. NGT placed and air inflated stomach without obvious leak. Area of previous placement grasped and eviscerated through 12 port site. Gastrotomy identified by gentle probing with jignesh. New 20 F G- tube placed through previous site. 3 0 vicryl pursestring placed around and 3 0 vicryls used to secure to fascia circumferentially. Balloon inflated and brought in opposition to abdominal wall at depth of 4 cm. Skin repaired with 3 0 nylon and also used to secure G-tube. Patient tolerated procedure well and sent to PACU in stable condition. All counts correct. Wound class is 4, dirty. CANDICE OROPEZA MD Apr 20, 2018 18:15
[2018-04-20] MEDS: fentaNYL PF VIAL 100 MCG/2 ML VIAL IV PRN ×2 (18:58→19:30)
[2018-04-20] MEDS ORDERED: HYDROmorphone 2 MG/ML VIAL IV PRN (19:00)
[2018-04-20] MEDS ORDERED: MORPHINE SULFATE 2 MG/ML VIAL. IV PRN (19:00)
[2018-04-20] MEDS ORDERED: IV RINGERS,LACTATED 1000ML 1,000 ML IV SCH (19:00)
[2018-04-20] MEDS ORDERED: PROCHLORPERAZINE 10 MG/2 ML VIAL. IV PRN (19:00)
[2018-04-20] MEDS ORDERED: LIDOCAINE 1% PF 2 ML VIAL. ID PRN (19:00)
[2018-04-20] MEDS ORDERED: fentaNYL PF VIAL 100 MCG/2 ML VIAL IV PRN (19:00)
--- NOTE | 2018-04-20 19:50 | NUR ---
patient returned from PACU, alert and oriented, had episode of drowsiness , post op vitals per protocol, [employer] for pain mgt. pt understood POC. will continue to monitor and give support.
[2018-04-20] MEDS: AMINO AC 3%/ELECTROLYTE/GLYCER 1,000 ML IV SCH (20:32)
[2018-04-20] MEDS: IV RINGERS,LACTATED 1000ML 1,000 ML IV SCH (20:32)
[2018-04-20] MEDS: DOCUSATE SODIUM 100 MG CAPSULE. PO SCH (20:32)
[2018-04-21] VITALS (17 sets, daily range): BP systolic 96–137; BP diastolic 42–79
[2018-04-21 05:08] LABS: BASO % 0 % (0-3); EOS % 0 % (0-3); LYMPH # 0.1 x10^3/uL (1.0-4.8); LYMPH % 1 % (24-48); MEAN CORPUSCULAR HEMOGLOBIN 18 pg (25-35); MEAN CORPUSCULAR HGB CONC 29 g/dL (31-37); MEAN CORPUSCULAR VOLUME 63 fL (79-100); MONO # 1.4 x10^3/uL (0.0-1.1); MONO % 11 % (0-9); NEUT # 11.6 x10^3uL (1.8-7.7); NEUT % 88 % (31-73); PLATELET COUNT 156 x10^3/uL (140-400); RED BLOOD COUNT 3.31 x10^6/uL (3.50-5.40); RED CELL DISTRIBUTION WIDTH 26.3 % (11.5-14.5); WHITE BLOOD COUNT 13.2 x10^3/uL (4.0-11.0)
[2018-04-21 05:15] LABS: HEMATOCRIT 20.7 % (36.0-47.0)
[2018-04-21 05:19] LABS: ALBUMIN 1.7 g/dL (3.4-5.0); ALBUMIN/GLOBULIN RATIO 0.5 (1.0-1.7); CALCIUM 8.3 mg/dL (8.5-10.1); CREATININE 0.9 mg/dL (0.6-1.0); GFR 62.3; POTASSIUM 4.2 mmol/L (3.5-5.1); TOTAL BILIRUBIN 0.5 mg/dL (0.2-1.0); TOTAL PROTEIN 4.8 g/dL (6.4-8.2)
--- NOTE | 2018-04-21 05:20 | NUR ---
CRITICAL LABS CALLED TO DR PUGA AWAITING CALLBACK.
[2018-04-21] MEDS: IV NORMAL SALINE 1000ML BAG 1,000 ML IV SCH (05:46)
[2018-04-21] MEDS: IV RINGERS,LACTATED 1000ML 1,000 ML IV SCH ×2 (06:00→14:24)
[2018-04-21] MEDS: DOCUSATE SODIUM 100 MG CAPSULE. PO SCH ×2 (07:36→20:59)
[2018-04-21] MEDS: cefTRIAXone IV Push 1 GM VIAL. IVP SCH (07:37)
[2018-04-21] MEDS: ENOXAPARIN 40 MG/0.4 ML SYRINGE. SQ SCH (07:40)
[2018-04-21] MEDS: AMINO AC 3%/ELECTROLYTE/GLYCER 1,000 ML IV SCH ×2 (07:41→14:06)
--- NOTE | 2018-04-21 09:27 | PDOC ---
SURGICAL PROGRESS NOTE Subjective feeling better resting taking clears Vital Signs Vital Signs Date Time Temp Pulse Resp B/P (MAP) Pulse Ox O2 Delivery O2 Flow Rate FiO2 04/21/18 08:44 98.3 114 16 97/54 98.3 04/21/18 08:10 Nasal Cannula 2.0 04/21/18 07:00 93 I&O Intake and Output 04/21/18 07:01 Intake Total 1600 ml Output Total 100 ml Balance 1500 ml Intake Oral 100 ml IV Total 1500 ml Output Urine Total 100 ml PATIENT HAS A GOMEZ: Yes (retention) General: Alert, Cooperative, mild distress Abdomen: Soft, Other (ND) Labs Laboratory Tests Test 04/20/18 05:25 04/20/18 05:54 04/20/18 09:50 04/20/18 11:45 White Blood Count 11.0 x10^3/uL (4.0-11.0) Red Blood Count 4.36 x10^6/uL (3.50-5.40) Hemoglobin 8.2 g/dL (12.0-15.5) Hematocrit 27.1 % (36.0-47.0) Mean Corpuscular Volume 62 fL (79-100) Mean Corpuscular Hemoglobin 19 pg (25-35) Mean Corpuscular Hemoglobin Concent 30 g/dL (31-37) Red Cell Distribution Width 26.2 % (11.5-14.5) Platelet Count 204 x10^3/uL (140-400) Neutrophils (%) (Auto) 86 % (31-73) Lymphocytes (%) (Auto) 1 % (24-48) Monocytes (%) (Auto) 13 % (0-9) Eosinophils (%) (Auto) 0 % (0-3) Basophils (%) (Auto) 0 % (0-3) Neutrophils # (Auto) 9.4 x10^3uL (1.8-7.7) Lymphocytes # (Auto) 0.2 x10^3/uL (1.0-4.8) Monocytes # (Auto) 1.4 x10^3/uL (0.0-1.1) Eosinophils # (Auto) 0.0 x10^3/uL (0.0-0.7) Basophils # (Auto) 0.0 x10^3/uL (0.0-0.2) Segmented Neutrophils % 43 % (35-66) Band Neutrophils % 49 % (0-9) Lymphocytes % 2 % (24-48) Monocytes % 6 % (0-10) Platelet Estimate Adequate (ADEQUATE) Large Platelets Few Polychromasia Present Hypochromasia Mod Poikilocytosis Present Anisocytosis Marked Microcytosis Marked Spherocytes Occ Target Cells Few Ovalocytes Present Schistocytes Occ Sodium Level 146 mmol/L (136-145) Potassium Level 4.3 mmol/L (3.5-5.1) Chloride Level 110 mmol/L (98-107) Carbon Dioxide Level 26 mmol/L (21-32) Anion Gap 10 (6-14) Blood Urea Nitrogen 39 mg/dL (7-20) Creatinine 1.0 mg/dL (0.6-1.0) Estimated GFR (Cockcroft-Gault) 55.1 Glucose Level 134 mg/dL (70-99) Calcium Level 8.6 mg/dL (8.5-10.1) Prothrombin Time 14.9 SEC (11.7-14.0) Prothromb Time International Ratio 1.2 (0.8-1.1) Lactic Acid Level 1.5 mmol/L (0.4-2.0) Urine Collection Type Unknown Urine Color Yellow Urine Clarity Clear Urine pH 5.5 Urine Specific [place] >=1.030 Urine Protein 30 mg/dL (NEG-TRACE) Urine Glucose (UA) 100 mg/dL (NEG) Urine Ketones (Stick) 15 mg/dL (NEG) Urine Blood Large (NEG) Urine Nitrite Negative (NEG) Urine Bilirubin Small (NEG) Urine Urobilinogen Dipstick 0.2 mg/dL (0.2 mg/dL) Urine Leukocyte Esterase Negative (NEG) Urine RBC >40 /HPF (0-2) Urine WBC 1-4 /HPF (0-4) Urine Squamous Epithelial Cells Few /LPF Urine Bacteria Few /HPF (0-FEW) Urine Hyaline Casts Few /HPF Urine Mucus Marked /LPF Test 04/21/18 04:25 White Blood Count 13.2 x10^3/uL (4.0-11.0) Red Blood Count 3.31 x10^6/uL (3.50-5.40) Hemoglobin 6.0 g/dL (12.0-15.5) Hematocrit 20.7 % (36.0-47.0) Mean Corpuscular Volume 63 fL (79-100) Mean Corpuscular Hemoglobin 18 pg (25-35) Mean Corpuscular Hemoglobin Concent 29 g/dL (31-37) Red Cell Distribution Width 26.3 % (11.5-14.5) Platelet Count 156 x10^3/uL (140-400) Neutrophils (%) (Auto) 88 % (31-73) Lymphocytes (%) (Auto) 1 % (24-48) Monocytes (%) (Auto) 11 % (0-9) Eosinophils (%) (Auto) 0 % (0-3) Basophils (%) (Auto) 0 % (0-3) Neutrophils # (Auto) 11.6 x10^3uL (1.8-7.7) Lymphocytes # (Auto) 0.1 x10^3/uL (1.0-4.8) Monocytes # (Auto) 1.4 x10^3/uL (0.0-1.1) Eosinophils # (Auto) 0.0 x10^3/uL (0.0-0.7) Basophils # (Auto) 0.0 x10^3/uL (0.0-0.2) Sodium Level 147 mmol/L (136-145) Potassium Level 4.2 mmol/L (3.5-5.1) Chloride Level 116 mmol/L (98-107) Carbon Dioxide Level 25 mmol/L (21-32) Anion Gap 6 (6-14) Blood Urea Nitrogen 34 mg/dL (7-20) Creatinine 0.9 mg/dL (0.6-1.0) Estimated GFR (Cockcroft-Gault) 62.3 BUN/Creatinine Ratio 38 (6-20) Glucose Level 141 mg/dL (70-99) Calcium Level 8.3 mg/dL (8.5-10.1) Total Bilirubin 0.5 mg/dL (0.2-1.0) Aspartate Amino Transf (AST/SGOT) 9 U/L (15-37) Alanine Aminotransferase (ALT/SGPT) 7 U/L (14-59) Alkaline Phosphatase 36 U/L (46-116) Total Protein 4.8 g/dL (6.4-8.2) Albumin 1.7 g/dL (3.4-5.0) Albumin/Globulin Ratio 0.5 (1.0-1.7) Laboratory Tests Test 04/20/18 09:50 04/20/18 11:45 04/21/18 04:25 Lactic Acid Level 1.5 mmol/L (0.4-2.0) Urine Collection Type Unknown Urine Color Yellow Urine Clarity Clear Urine pH 5.5 Urine Specific [place] >=1.030 Urine Protein 30 mg/dL (NEG-TRACE) Urine Glucose (UA) 100 mg/dL (NEG) Urine Ketones (Stick) 15 mg/dL (NEG) Urine Blood Large (NEG) Urine Nitrite Negative (NEG) Urine Bilirubin Small (NEG) Urine Urobilinogen Dipstick 0.2 mg/dL (0.2 mg/dL) Urine Leukocyte Esterase Negative (NEG) Urine RBC >40 /HPF (0-2) Urine WBC 1-4 /HPF (0-4) Urine Squamous Epithelial Cells Few /LPF Urine Bacteria Few /HPF (0-FEW) Urine Hyaline Casts Few /HPF Urine Mucus Marked /LPF White Blood Count 13.2 x10^3/uL (4.0-11.0) Red Blood Count 3.31 x10^6/uL (3.50-5.40) Hemoglobin 6.0 g/dL (12.0-15.5) Hematocrit 20.7 % (36.0-47.0) Mean Corpuscular Volume 63 fL (79-100) Mean Corpuscular Hemoglobin 18 pg (25-35) Mean Corpuscular Hemoglobin Concent 29 g/dL (31-37) Red Cell Distribution Width 26.3 % (11.5-14.5) Platelet Count 156 x10^3/uL (140-400) Neutrophils (%) (Auto) 88 % (31-73) Lymphocytes (%) (Auto) 1 % (24-48) Monocytes (%) (Auto) 11 % (0-9) Eosinophils (%) (Auto) 0 % (0-3) Basophils (%) (Auto) 0 % (0-3) Neutrophils # (Auto) 11.6 x10^3uL (1.8-7.7) Lymphocytes # (Auto) 0.1 x10^3/uL (1.0-4.8) Monocytes # (Auto) 1.4 x10^3/uL (0.0-1.1) Eosinophils # (Auto) 0.0 x10^3/uL (0.0-0.7) Basophils # (Auto) 0.0 x10^3/uL (0.0-0.2) Sodium Level 147 mmol/L (136-145) Potassium Level 4.2 mmol/L (3.5-5.1) Chloride Level 116 mmol/L (98-107) Carbon Dioxide Level 25 mmol/L (21-32) Anion Gap 6 (6-14) Blood Urea Nitrogen 34 mg/dL (7-20) Creatinine 0.9 mg/dL (0.6-1.0) Estimated GFR (Cockcroft-Gault) 62.3 BUN/Creatinine Ratio 38 (6-20) Glucose Level 141 mg/dL (70-99) Calcium Level 8.3 mg/dL (8.5-10.1) Total Bilirubin 0.5 mg/dL (0.2-1.0) Aspartate Amino Transf (AST/SGOT) 9 U/L (15-37) Alanine Aminotransferase (ALT/SGPT) 7 U/L (14-59) Alkaline Phosphatase 36 U/L (46-116) Total Protein 4.8 g/dL (6.4-8.2) Albumin 1.7 g/dL (3.4-5.0) Albumin/Globulin Ratio 0.5 (1.0-1.7) Assessment/Plan s/p replacement of g tube continue abx for peritonitis JANET ALCANTARA APRN Apr 21, 2018 09:27
--- NOTE | 2018-04-21 10:46 | PDOC ---
PROGRESS NOTES History of Present Illness History of Present Illness Assessment/Plan Assessment/Plan IMPRESSION RECENT PEG tube placement and free intraperitoneal gas and fluid possible mild hydronephrosis and right hydroureter anemia HX esophageal ca new dx peritonitis PLAN GEN SURG following urology consult REVIEWED CT ABD/PELVIS, UA pod # 2 surgical repair iv flagyl, rocephin transfuse today PRBC'S Vitals Vitals Vital Signs Date Time Temp Pulse Resp B/P (MAP) Pulse Ox O2 Delivery O2 Flow Rate FiO2 04/21/18 09:44 98.2 110 16 116/66 98.2 04/21/18 08:10 Nasal Cannula 2.0 04/21/18 07:00 93 Physical Exam General: Alert, Oriented X3, Cooperative, mild distress Heart: Regular rate, Normal S1, Normal S2, No murmurs Lungs: Clear Abdomen: Soft, Other (DRESSING DRY) Extremities: No clubbing, No cyanosis, No edema Skin: No rashes, No breakdown Labs LABS PATIENT: ROC VALERIO ACCOUNT: [id number] : 1950 LOCATION: [address] [place] [address] AGE: 67 SEX: F EXAM STATUS: ADM IN ORD. PHYSICIAN: LASHAUN SOMMER MD REASON: HYDRONEPHROSIS PROCEDURE: RENAL COMPLETE BILATERAL CLINICAL HISTORY: Hydronephrosis, residual post-void volume on bladder scanner. COMPARISON: CT and KUB 04/20/2018. TECHNIQUE: Ultrasound examination of the bilateral kidneys and urinary bladder was performed. FINDINGS: The right kidney measures 10.4 cm in bipolar length. The renal cortex is normal in thickness. Renal echogenicity is normal. Mild right hydronephrosis. No focal renal lesion. The left kidney measures 11.5 cm in bipolar length. The renal cortex is normal in thickness. Renal echogenicity is normal. There is no evidence for hydronephrosis, shadowing renal calculus or focal abnormality. Bladder is mildly distended with mild internal debris. Fluid is profiled posterior to the uterus better profiled on prior CT. IMPRESSION: 1. Mild right hydronephrosis. 2. Debris within the bladder, may be seen with cystitis. 3. Free pelvic fluid is partially profiled. Electronically signed by: Keny Nunez MD (04/20/2018 4:54 PM) [facility] DICTATED and SIGNED BY: KENY NUNEZ MD DATE: 04/20/18 [id number] Laboratory Tests Test 04/20/18 11:45 04/21/18 04:25 Urine Collection Type Unknown Urine Color Yellow Urine Clarity Clear Urine pH 5.5 Urine Specific [place] >=1.030 Urine Protein 30 mg/dL (NEG-TRACE) Urine Glucose (UA) 100 mg/dL (NEG) Urine Ketones (Stick) 15 mg/dL (NEG) Urine Blood Large (NEG) Urine Nitrite Negative (NEG) Urine Bilirubin Small (NEG) Urine Urobilinogen Dipstick 0.2 mg/dL (0.2 mg/dL) Urine Leukocyte Esterase Negative (NEG) Urine RBC >40 /HPF (0-2) Urine WBC 1-4 /HPF (0-4) Urine Squamous Epithelial Cells Few /LPF Urine Bacteria Few /HPF (0-FEW) Urine Hyaline Casts Few /HPF Urine Mucus Marked /LPF White Blood Count 13.2 x10^3/uL (4.0-11.0) Red Blood Count 3.31 x10^6/uL (3.50-5.40) Hemoglobin 6.0 g/dL (12.0-15.5) Hematocrit 20.7 % (36.0-47.0) Mean Corpuscular Volume 63 fL (79-100) Mean Corpuscular Hemoglobin 18 pg (25-35) Mean Corpuscular Hemoglobin Concent 29 g/dL (31-37) Red Cell Distribution Width 26.3 % (11.5-14.5) Platelet Count 156 x10^3/uL (140-400) Neutrophils (%) (Auto) 88 % (31-73) Lymphocytes (%) (Auto) 1 % (24-48) Monocytes (%) (Auto) 11 % (0-9) Eosinophils (%) (Auto) 0 % (0-3) Basophils (%) (Auto) 0 % (0-3) Neutrophils # (Auto) 11.6 x10^3uL (1.8-7.7) Lymphocytes # (Auto) 0.1 x10^3/uL (1.0-4.8) Monocytes # (Auto) 1.4 x10^3/uL (0.0-1.1) Eosinophils # (Auto) 0.0 x10^3/uL (0.0-0.7) Basophils # (Auto) 0.0 x10^3/uL (0.0-0.2) Sodium Level 147 mmol/L (136-145) Potassium Level 4.2 mmol/L (3.5-5.1) Chloride Level 116 mmol/L (98-107) Carbon Dioxide Level 25 mmol/L (21-32) Anion Gap 6 (6-14) Blood Urea Nitrogen 34 mg/dL (7-20) Creatinine 0.9 mg/dL (0.6-1.0) Estimated GFR (Cockcroft-Gault) 62.3 BUN/Creatinine Ratio 38 (6-20) Glucose Level 141 mg/dL (70-99) Calcium Level 8.3 mg/dL (8.5-10.1) Total Bilirubin 0.5 mg/dL (0.2-1.0) Aspartate Amino Transf (AST/SGOT) 9 U/L (15-37) Alanine Aminotransferase (ALT/SGPT) 7 U/L (14-59) Alkaline Phosphatase 36 U/L (46-116) Total Protein 4.8 g/dL (6.4-8.2) Albumin 1.7 g/dL (3.4-5.0) Albumin/Globulin Ratio 0.5 (1.0-1.7) Assessment and Plan Assessmemt and Plan Pre-Op Diagnosis: Esophageal cancer, dislodged G-tube Post-Op Diagnosis: same Procedure Performed: Laparoscopic placement of G-tube Surgeon: Angelito Vásquez Anesthesia Type: GETA plus local Blood Loss: minimal Specimans Obtained: none Findings: Previous G-tube in SQ, some peritonitis Comment Review of Relevant I have reviewed the following items herbei (where applicable) has been applied. Labs Laboratory Tests Test 04/20/18 05:25 04/20/18 05:54 04/20/18 09:50 04/20/18 11:45 White Blood Count 11.0 x10^3/uL (4.0-11.0) Red Blood Count 4.36 x10^6/uL (3.50-5.40) Hemoglobin 8.2 g/dL (12.0-15.5) Hematocrit 27.1 % (36.0-47.0) Mean Corpuscular Volume 62 fL (79-100) Mean Corpuscular Hemoglobin 19 pg (25-35) Mean Corpuscular Hemoglobin Concent 30 g/dL (31-37) Red Cell Distribution Width 26.2 % (11.5-14.5) Platelet Count 204 x10^3/uL (140-400) Neutrophils (%) (Auto) 86 % (31-73) Lymphocytes (%) (Auto) 1 % (24-48) Monocytes (%) (Auto) 13 % (0-9) Eosinophils (%) (Auto) 0 % (0-3) Basophils (%) (Auto) 0 % (0-3) Neutrophils # (Auto) 9.4 x10^3uL (1.8-7.7) Lymphocytes # (Auto) 0.2 x10^3/uL (1.0-4.8) Monocytes # (Auto) 1.4 x10^3/uL (0.0-1.1) Eosinophils # (Auto) 0.0 x10^3/uL (0.0-0.7) Basophils # (Auto) 0.0 x10^3/uL (0.0-0.2) Segmented Neutrophils % 43 % (35-66) Band Neutrophils % 49 % (0-9) Lymphocytes % 2 % (24-48) Monocytes % 6 % (0-10) Platelet Estimate Adequate (ADEQUATE) Large Platelets Few Polychromasia Present Hypochromasia Mod Poikilocytosis Present Anisocytosis Marked Microcytosis Marked Spherocytes Occ Target Cells Few Ovalocytes Present Schistocytes Occ Sodium Level 146 mmol/L (136-145) Potassium Level 4.3 mmol/L (3.5-5.1) Chloride Level 110 mmol/L (98-107) Carbon Dioxide Level 26 mmol/L (21-32) Anion Gap 10 (6-14) Blood Urea Nitrogen 39 mg/dL (7-20) Creatinine 1.0 mg/dL (0.6-1.0) Estimated GFR (Cockcroft-Gault) 55.1 Glucose Level 134 mg/dL (70-99) Calcium Level 8.6 mg/dL (8.5-10.1) Prothrombin Time 14.9 SEC (11.7-14.0) Prothromb Time International Ratio 1.2 (0.8-1.1) Lactic Acid Level 1.5 mmol/L (0.4-2.0) Urine Collection Type Unknown Urine Color Yellow Urine Clarity Clear Urine pH 5.5 Urine Specific [place] >=1.030 Urine Protein 30 mg/dL (NEG-TRACE) Urine Glucose (UA) 100 mg/dL (NEG) Urine Ketones (Stick) 15 mg/dL (NEG) Urine Blood Large (NEG) Urine Nitrite Negative (NEG) Urine Bilirubin Small (NEG) Urine Urobilinogen Dipstick 0.2 mg/dL (0.2 mg/dL) Urine Leukocyte Esterase Negative (NEG) Urine RBC >40 /HPF (0-2) Urine WBC 1-4 /HPF (0-4) Urine Squamous Epithelial Cells Few /LPF Urine Bacteria Few /HPF (0-FEW) Urine Hyaline Casts Few /HPF Urine Mucus Marked /LPF Test 04/21/18 04:25 White Blood Count 13.2 x10^3/uL (4.0-11.0) Red Blood Count 3.31 x10^6/uL (3.50-5.40) Hemoglobin 6.0 g/dL (12.0-15.5) Hematocrit 20.7 % (36.0-47.0) Mean Corpuscular Volume 63 fL (79-100) Mean Corpuscular Hemoglobin 18 pg (25-35) Mean Corpuscular Hemoglobin Concent 29 g/dL (31-37) Red Cell Distribution Width 26.3 % (11.5-14.5) Platelet Count 156 x10^3/uL (140-400) Neutrophils (%) (Auto) 88 % (31-73) Lymphocytes (%) (Auto) 1 % (24-48) Monocytes (%) (Auto) 11 % (0-9) Eosinophils (%) (Auto) 0 % (0-3) Basophils (%) (Auto) 0 % (0-3) Neutrophils # (Auto) 11.6 x10^3uL (1.8-7.7) Lymphocytes # (Auto) 0.1 x10^3/uL (1.0-4.8) Monocytes # (Auto) 1.4 x10^3/uL (0.0-1.1) Eosinophils # (Auto) 0.0 x10^3/uL (0.0-0.7) Basophils # (Auto) 0.0 x10^3/uL (0.0-0.2) Sodium Level 147 mmol/L (136-145) Potassium Level 4.2 mmol/L (3.5-5.1) Chloride Level 116 mmol/L (98-107) Carbon Dioxide Level 25 mmol/L (21-32) Anion Gap 6 (6-14) Blood Urea Nitrogen 34 mg/dL (7-20) Creatinine 0.9 mg/dL (0.6-1.0) Estimated GFR (Cockcroft-Gault) 62.3 BUN/Creatinine Ratio 38 (6-20) Glucose Level 141 mg/dL (70-99) Calcium Level 8.3 mg/dL (8.5-10.1) Total Bilirubin 0.5 mg/dL (0.2-1.0) Aspartate Amino Transf (AST/SGOT) 9 U/L (15-37) Alanine Aminotransferase (ALT/SGPT) 7 U/L (14-59) Alkaline Phosphatase 36 U/L (46-116) Total Protein 4.8 g/dL (6.4-8.2) Albumin 1.7 g/dL (3.4-5.0) Albumin/Globulin Ratio 0.5 (1.0-1.7) Laboratory Tests Test 04/20/18 11:45 04/21/18 04:25 Urine Collection Type Unknown Urine Color Yellow Urine Clarity Clear Urine pH 5.5 Urine Specific [place] >=1.030 Urine Protein 30 mg/dL (NEG-TRACE) Urine Glucose (UA) 100 mg/dL (NEG) Urine Ketones (Stick) 15 mg/dL (NEG) Urine Blood Large (NEG) Urine Nitrite Negative (NEG) Urine Bilirubin Small (NEG) Urine Urobilinogen Dipstick 0.2 mg/dL (0.2 mg/dL) Urine Leukocyte Esterase Negative (NEG) Urine RBC >40 /HPF (0-2) Urine WBC 1-4 /HPF (0-4) Urine Squamous Epithelial Cells Few /LPF Urine Bacteria Few /HPF (0-FEW) Urine Hyaline Casts Few /HPF Urine Mucus Marked /LPF White Blood Count 13.2 x10^3/uL (4.0-11.0) Red Blood Count 3.31 x10^6/uL (3.50-5.40) Hemoglobin 6.0 g/dL (12.0-15.5) Hematocrit 20.7 % (36.0-47.0) Mean Corpuscular Volume 63 fL (79-100) Mean Corpuscular Hemoglobin 18 pg (25-35) Mean Corpuscular Hemoglobin Concent 29 g/dL (31-37) Red Cell Distribution Width 26.3 % (11.5-14.5) Platelet Count 156 x10^3/uL (140-400) Neutrophils (%) (Auto) 88 % (31-73) Lymphocytes (%) (Auto) 1 % (24-48) Monocytes (%) (Auto) 11 % (0-9) Eosinophils (%) (Auto) 0 % (0-3) Basophils (%) (Auto) 0 % (0-3) Neutrophils # (Auto) 11.6 x10^3uL (1.8-7.7) Lymphocytes # (Auto) 0.1 x10^3/uL (1.0-4.8) Monocytes # (Auto) 1.4 x10^3/uL (0.0-1.1) Eosinophils # (Auto) 0.0 x10^3/uL (0.0-0.7) Basophils # (Auto) 0.0 x10^3/uL (0.0-0.2) Sodium Level 147 mmol/L (136-145) Potassium Level 4.2 mmol/L (3.5-5.1) Chloride Level 116 mmol/L (98-107) Carbon Dioxide Level 25 mmol/L (21-32) Anion Gap 6 (6-14) Blood Urea Nitrogen 34 mg/dL (7-20) Creatinine 0.9 mg/dL (0.6-1.0) Estimated GFR (Cockcroft-Gault) 62.3 BUN/Creatinine Ratio 38 (6-20) Glucose Level 141 mg/dL (70-99) Calcium Level 8.3 mg/dL (8.5-10.1) Total Bilirubin 0.5 mg/dL (0.2-1.0) Aspartate Amino Transf (AST/SGOT) 9 U/L (15-37) Alanine Aminotransferase (ALT/SGPT) 7 U/L (14-59) Alkaline Phosphatase 36 U/L (46-116) Total Protein 4.8 g/dL (6.4-8.2) Albumin 1.7 g/dL (3.4-5.0) Albumin/Globulin Ratio 0.5 (1.0-1.7) Microbiology 04/20/18 Blood Culture - Preliminary, Resulted NO GROWTH AFTER 1 DAY Medications Current Medications Sodium Chloride 1,000 ml @ 100 mls/hr Q10H IV Last administered on 04/20/18at 18:17; Start 04/19/18 at 21:00 Morphine Sulfate (Morphine Sulfate) 2 mg PRN Q4HRS PRN IV SEVERE PAIN Last administered on 04/20/18at 10:04; Start 04/19/18 at 21:00; Stop 04/20/18 at 18:10 ; Status DC Ondansetron HCl (Zofran) 4 mg PRN Q6HRS PRN IV NAUSEA/VOMITING 1ST CHOICE Last administered on 04/20/18 10:04; Start 04/19/18 at 21:00 Sodium Chloride 1,000 ml @ 1,000 mls/hr 1X ONCE IV Last administered on 10:05; Start 04/20/18 at 08:15; Stop 04/20/18 at 09:14; Status DC Ceftriaxone Sodium (Rocephin) 1 gm Q24H IVP Last administered on 04/21/18at 07: 37; Start 04/20/18 at 09:00 Metronidazole 100 ml @ 100 mls/hr Q8HRS IV Last administered on 04/21/18at 06: 00; Start 04/20/18 at 14:00 Propofol 20 ml @ As Directed STK-MED ONCE IV ; Start 04/20/18 at 15:46; Stop at 15:48; Status DC Lidocaine HCl (Lidocaine Pf 2% Vial) 5 ml STK-MED ONCE .ROUTE ; Start 04/20/18 at 15:46; Stop 04/20/18 at 15:48; Status DC Dexamethasone Sodium Phosphate (Decadron) 20 mg STK-MED ONCE .ROUTE ; Start at 15:47; Stop 04/20/18 at 15:48; Status DC Ondansetron HCl (Zofran) 4 mg STK-MED ONCE .ROUTE ; Start 04/20/18 at 15:47; Stop 04/20/18 at 15:48; Status DC Rocuronium [place] (Zemuron) 50 mg STK-MED ONCE .ROUTE ; Start 04/20/18 at 15:47 ; Stop 04/20/18 at 15:49; Status DC Fentanyl Citrate (Fentanyl 2ml Vial) 100 mcg STK-MED ONCE .ROUTE ; Start at 15:47; Stop 04/20/18 at 15:49; Status DC Bupivacaine HCl/ Epinephrine Bitart (Sensorcain-Mpf Epi 0.5%-[id number]) 30 ml STK -MED ONCE .ROUTE Last administered on 04/20/18at 17:02; Start 04/20/18 at 16:22 ; Stop 04/20/18 at 16:24; Status DC Sevoflurane (Ultane) 30 ml STK-MED ONCE IH ; Start 04/20/18 at 16:35; Stop 04/20 at 16:36; Status DC Succinylcholine Chloride (Anectine) 200 mg STK-MED ONCE .ROUTE ; Start 04/20/18 at 16:38; Stop 04/20/18 at 16:40; Status DC Glycopyrrolate (Robinul) 1 mg STK-MED ONCE .ROUTE ; Start 04/20/18 at 17:08; Stop 04/20/18 at 17:09; Status DC Neostigmine Methylsulfate (Bloxiverz) 10 mg STK-MED ONCE .ROUTE ; Start at 17:08; Stop 04/20/18 at 17:10; Status DC Sevoflurane (Ultane) 60 ml STK-MED ONCE IH ; Start 04/20/18 at 17:26; Stop 04/20 at 17:28; Status DC Enoxaparin Sodium (Lovenox 40mg Syringe) 40 mg Q24H SQ Last administered on at 07:40; Start 04/21/18 at 09:00 Sodium Chloride (Normal Saline Flush) 3 ml QSHIFT PRN IV AFTER MEDS AND BLOOD DRAWS; Start 04/20/18 at 18:15 Ringer's Solution 1,000 ml @ 100 mls/hr Q10H IV Last administered on at 06:00; Start 04/20/18 at 19:00 Morphine Sulfate 30 ml @ 0 mls/hr CONT PRN PRN IV PER PROTOCOL Last administered on 04/20/18at 19:03; Start 04/20/18 at 18:15 Docusate Sodium (Colace) 100 mg BID PO Last administered on 04/21/18at 07:36; Start 04/20/18 at 21:00 Ondansetron HCl (Zofran) 4 mg PRN Q6HRS PRN IV NAUESA, 1ST CHOICE; Start at 18:15; Status UNV Amino Acids/ Glycerin/ Electrolytes 1,000 ml @ 80 mls/hr [id number] IV Last administered on 04/20/18at 20:32; Start 04/20/18 at 21:00 Fentanyl Citrate (Fentanyl 2ml Vial) 100 mcg STK-MED ONCE .ROUTE ; Start at 18:52; Stop 04/20/18 at 18:54; Status DC Ondansetron HCl (Zofran) 4 mg PRN Q6HRS PRN IV NAUSEA/VOMITING; Start 04/20/18 at 19:00; Stop 04/20/18 at 23:59; Status DC Fentanyl Citrate (Fentanyl 2ml Vial) 25 mcg PRN Q5MIN PRN IV MILD PAIN Last administered on 04/20/18at 19:30; Start 04/20/18 at 19:00; Stop 04/20/18 at 23:59 ; Status DC Fentanyl Citrate (Fentanyl 2ml Vial) 50 mcg PRN Q5MIN PRN IV MODERATE TO SEVERE PAIN; Start 04/20/18 at 19:00; Stop 04/20/18 at 23:59; Status DC Morphine Sulfate (Morphine Sulfate) 1 mg PRN Q10MIN PRN IV SEVERE PAIN; Start 04/20/18 at 19:00; Stop 04/20/18 at 23:59; Status DC Ringer's Solution 1,000 ml @ 30 mls/hr Q24H IV ; Start 04/20/18 at 19:00; Stop 04/20/18 at 23:59; Status DC Lidocaine HCl (Xylocaine-Mpf 1% 2ml Vial) 2 ml PRN 1X PRN ID PRIOR TO IV START ; Start 04/20/18 at 19:00; Stop 04/20/18 at 23:59; Status DC Hydromorphone HCl (Dilaudid) 0.5 mg PRN Q10MIN PRN IV SEV PAIN, Second choice; Start 04/20/18 at 19:00; Stop 04/20/18 at 23:59; Status DC Prochlorperazine Edisylate (Compazine) 5 mg PACU PRN PRN IV NAUSEA, MRX1; Start 04/20/18 at 19:00; Stop 04/20/18 at 23:59; Status DC Active Scripts Active Reported Hydrocodone-Acetamn 7.5-325/15 (Hydrocodone/Acetaminophen) 15 Ml Solution 15 Ml PO Q4HRS Plaquenil (Hydroxychloroquine Sulfate) 200 Mg Tablet 200 Mg PO BID Sulindac 200 Mg Tablet 200 Mg PO BID Ibuprofen 600 Mg Tablet 600 Mg PO PRN Q6HRS PRN Vitals/I & O Vital Sign - Last 24 Hours 04/20/18 04/20/18 04/20/18 04/20/18 11:00 12:21 15:00 16:15 Temp 97.4 97.6 98.1 97.4 97.6 98.1 Pulse 95 120 111 Resp 16 16 18 B/P (MAP) 97/57 (70) 96/54 (68) 93/64 Pulse Ox 94 94 96 O2 Delivery Room Air Room Air Room Air Room Air 04/20/18 04/20/18 04/20/18 04/20/18 17:59 17:59 18:11 18:26 Pulse 122 126 119 Resp 22 B/P (MAP) 140/58 129/56 123/78 Pulse Ox 100 99 99 O2 Delivery Simple Mask Mask Simple Mask Simple Mask O2 Flow Rate 10 10 10 10 04/20/18 04/20/18 04/20/18 04/20/18 18:43 18:58 18:58 19:03 Pulse 114 122 Resp 22 24 B/P (MAP) 113/49 113/49 Pulse Ox 97 99 98 96 O2 Delivery Nasal Cannula Nasal Cannula Nasal Cannula O2 Flow Rate 2 2 2.0 04/20/18 04/20/18 04/20/18 04/20/18 19:12 19:27 19:30 19:30 Pulse 116 107 Resp 22 B/P (MAP) 104/47 113/47 Pulse Ox 98 95 O2 Delivery Nasal Cannula Nasal Cannula Nasal Cannula O2 Flow Rate 2 2 2 04/20/18 04/20/18 04/20/18 04/20/18 19:42 19:45 20:00 20:00 Temp 97.0 98.3 97.0 98.3 Pulse 116 102 99 Resp 17 18 16 B/P (MAP) 113/65 108/53 (71) 101/51 (68) Pulse Ox 99 97 96 93 O2 Delivery Nasal Cannula Nasal Cannula Nasal Cannula Nasal Cannula O2 Flow Rate 2 2.0 04/20/18 04/20/18 04/20/18 04/20/18 20:15 20:30 20:45 21:15 Temp 98.4 98.4 Pulse 101 100 109 101 Resp 17 B/P (MAP) 89/49 (62) 89/44 (59) 84/52 (63) 95/48 (64) Pulse Ox 95 95 95 95 O2 Delivery Nasal Cannula Nasal Cannula Nasal Cannula Nasal Cannula 04/20/18 04/20/18 04/20/18 04/21/18 21:45 22:45 23:45 03:00 Temp 98.4 98.5 98.4 98.5 Pulse 108 102 112 110 Resp 18 B/P (MAP) 99/49 (66) 96/51 (66) 127/68 (87) 96/49 (65) Pulse Ox 93 93 93 90 O2 Delivery Nasal Cannula Nasal Cannula Nasal Cannula Room Air 04/21/18 04/21/18 04/21/18 04/21/18 03:29 07:00 08:10 08:44 Temp 98.2 98.3 98.2 98.3 Pulse 120 114 Resp 16 B/P (MAP) 101/42 (61) 97/54 (68) 97/54 Pulse Ox 93 O2 Delivery Room Air Nasal Cannula O2 Flow Rate 2.0 04/21/18 09:44 Temp 98.2 98.2 Pulse 110 Resp 16 B/P (MAP) 116/66 Intake and Output 04/20/18 04/20/18 04/21/18 15:01 23:01 07:01 Intake Total 0 ml 1500 ml 100 ml Output Total 100 ml Balance 0 ml 1400 ml 100 ml LASHAUN SOMMER MD Apr 21, 2018 10:46
[2018-04-21 12:49] LABS: HEMATOCRIT 22.5 % (36.0-47.0); HEMOGLOBIN 7.2 g/dL (12.0-15.5)
[2018-04-21] MEDS ORDERED: ACETAMINOPHEN 325 MG TABLET. PO PRN (13:15)
--- NOTE | 2018-04-21 14:02 | PDOC2 ---
ZOHRA PRASAD INSIDE SALES TRAINER 04/21/18 1402: UROLOGY CONSULT Date of Consult Date of Consult DATE: 04/21/18 TIME: 13:52 Reason for Consult Reason for Consult: Hydronephro Identification/Chief Complaint Chief Complaint [place] Source Source: Caregiver, Chart review, Patient History of Present Illness Reason for Visit: This pleasant 67 year old female with a history of esophageal cancer presented on Sunday night with a non functional PEG tube to the ED. She is POD # 1 laparoscopic placement of G tube per Dr. Vásquez, General Surgeon. During the course of her hospitalization she had some difficulty urinating and so a purcell catheter was placed for a return of 300 ml. This is the first time she has had any trouble voiding. The catheter is not bothering her currently, and seems to be working well. Urology was also consulted for some hydronephrosis that was noted on CT scan. She denies a history of flank pain, kidney stones, or other kidney or bladder problems that she is aware of. She also denies seeing hematuria or having dysuria prior to this admission. She has never seen a Urologist that she is aware of. Past Medical History Heme/Onc: Cancer (esophageal ) Psych: Depression Grav: 3 Para: 3 Past Surgical History Past Surgical History: Cholecystectomy, Other (port, g tube) Family History Family History: Hypertension, Other (noncontributory to current illness ) Social History No ALCOHOL: none Drugs: None Lives: Alone Current Problem List Problems: (1) Purcell catheter in place (2) Urinary retention (3) Esophageal cancer Current Medications Current Medications Current Medications Acetaminophen (Tylenol) 650 mg 1X PRN PRN PO PRE-TRANSFUSION; Start 04/21/18 at 13:15 Amino Acids/ Glycerin/ Electrolytes 1,000 ml @ 80 mls/hr [id number] IV Last administered on 04/20/18at 20:32; Start 04/20/18 at 21:00 Bupivacaine HCl/ Epinephrine Bitart (Sensorcain-Mpf Epi 0.5%-[id number]) 30 ml STK -MED ONCE .ROUTE Last administered on 04/20/18at 17:02; Start 04/20/18 at 16:22 ; Stop 04/20/18 at 16:24; Status DC Dexamethasone Sodium Phosphate (Decadron) 20 mg STK-MED ONCE .ROUTE ; Start at 15:47; Stop 04/20/18 at 15:48; Status DC Docusate Sodium (Colace) 100 mg BID PO Last administered on 04/21/18at 07:36; Start 04/20/18 at 21:00 Enoxaparin Sodium (Lovenox 40mg Syringe) 40 mg Q24H SQ Last administered on at 07:40; Start 04/21/18 at 09:00 Fentanyl Citrate (Fentanyl 2ml Vial) 25 mcg PRN Q5MIN PRN IV MILD PAIN Last administered on 04/20/18at 19:30; Start 04/20/18 at 19:00; Stop 04/20/18 at 23:59 ; Status DC Fentanyl Citrate (Fentanyl 2ml Vial) 50 mcg PRN Q5MIN PRN IV MODERATE TO SEVERE PAIN; Start 04/20/18 at 19:00; Stop 04/20/18 at 23:59; Status DC Fentanyl Citrate (Fentanyl 2ml Vial) 100 mcg STK-MED ONCE .ROUTE ; Start at 15:47; Stop 04/20/18 at 15:49; Status DC Fentanyl Citrate (Fentanyl 2ml Vial) 100 mcg STK-MED ONCE .ROUTE ; Start at 18:52; Stop 04/20/18 at 18:54; Status DC Glycopyrrolate (Robinul) 1 mg STK-MED ONCE .ROUTE ; Start 04/20/18 at 17:08; Stop 04/20/18 at 17:09; Status DC Hydromorphone HCl (Dilaudid) 0.5 mg PRN Q10MIN PRN IV SEV PAIN, Second choice; Start 04/20/18 at 19:00; Stop 04/20/18 at 23:59; Status DC Lidocaine HCl (Lidocaine Pf 2% Vial) 5 ml STK-MED ONCE .ROUTE ; Start 04/20/18 at 15:46; Stop 04/20/18 at 15:48; Status DC Lidocaine HCl (Xylocaine-Mpf 1% 2ml Vial) 2 ml PRN 1X PRN ID PRIOR TO IV START ; Start 04/20/18 at 19:00; Stop 04/20/18 at 23:59; Status DC Metronidazole 100 ml @ 100 mls/hr Q8HRS IV Last administered on 04/21/18at 06: 00; Start 04/20/18 at 14:00 Morphine Sulfate 30 ml @ 0 mls/hr CONT PRN PRN IV PER PROTOCOL Last administered on 04/20/18at 19:03; Start 04/20/18 at 18:15 Morphine Sulfate (Morphine Sulfate) 1 mg PRN Q10MIN PRN IV SEVERE PAIN; Start 04/20/18 at 19:00; Stop 04/20/18 at 23:59; Status DC Neostigmine Methylsulfate (Bloxiverz) 10 mg STK-MED ONCE .ROUTE ; Start at 17:08; Stop 04/20/18 at 17:10; Status DC Ondansetron HCl (Zofran) 4 mg PRN Q6HRS PRN IV NAUESA, 1ST CHOICE; Start at 18:15; Status UNV Ondansetron HCl (Zofran) 4 mg PRN Q6HRS PRN IV NAUSEA/VOMITING; Start 04/20/18 at 19:00; Stop 04/20/18 at 23:59; Status DC Ondansetron HCl (Zofran) 4 mg STK-MED ONCE .ROUTE ; Start 04/20/18 at 15:47; Stop 04/20/18 at 15:48; Status DC Prochlorperazine Edisylate (Compazine) 5 mg PACU PRN PRN IV NAUSEA, MRX1; Start 04/20/18 at 19:00; Stop 04/20/18 at 23:59; Status DC Propofol 20 ml @ As Directed STK-MED ONCE IV ; Start 04/20/18 at 15:46; Stop at 15:48; Status DC Ringer's Solution 1,000 ml @ 30 mls/hr Q24H IV ; Start 04/20/18 at 19:00; Stop 04/20/18 at 23:59; Status DC Ringer's Solution 1,000 ml @ 100 mls/hr Q10H IV Last administered on at 06:00; Start 04/20/18 at 19:00 Rocuronium [place] (Zemuron) 50 mg STK-MED ONCE .ROUTE ; Start 04/20/18 at 15:47 ; Stop 04/20/18 at 15:49; Status DC Sevoflurane (Ultane) 30 ml STK-MED ONCE IH ; Start 04/20/18 at 16:35; Stop 04/20 at 16:36; Status DC Sevoflurane (Ultane) 60 ml STK-MED ONCE IH ; Start 04/20/18 at 17:26; Stop 04/20 at 17:28; Status DC Sodium Chloride (Normal Saline Flush) 3 ml QSHIFT PRN IV AFTER MEDS AND BLOOD DRAWS; Start 04/20/18 at 18:15 Succinylcholine Chloride (Anectine) 200 mg STK-MED ONCE .ROUTE ; Start 04/20/18 at 16:38; Stop 04/20/18 at 16:40; Status DC Allergies Allergies: Coded Allergies: No Known Drug Allergies (Unverified , 04/18/18) ROS Review Of Systems: CONSTITUTIONAL: No fever or chills EYES: No recent changes SKIN: No rash or itching CARDIOVASCULAR: No chest pain, syncope, palpitations, or edema RESPIRATORY: No SOB or cough GASTROINTESTINAL: + esophageal cancer, PEG tube NEUROLOGICAL: No headaches or weakness ENDOCRINE: No cold or heat intolerance GENITOURINARY: + Purcell in place for retention MUSCULOSKELETAL: No back pain or joint pain LYMPHATICS: No enlarged lymph nodes PSYCHIATRIC: No anxiety or depression Physical Exam Physical Exam: General: Pleasant, no acute distress, well groomed Eyes: conjunctiva anicteric, eyes full range of motion ENT: moist oral mucosa, normal dentition Neck: Trachea midline, no masses Respiratory: unlabored breathing, not using accessory muscles, Abdomen: ABD binder in place per General Surgeon limits full exam. + Drain draining greenish drainage with some sediment from beneath abd binder. : + Purcell catheter in place draining clear yellow urine. Skin: no rashes or skin lesions on visualized skin Psych: normal mood, affect. Alert and 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. Vitals VITALS Vital Signs Date Time Temp Pulse Resp B/P (MAP) Pulse Ox O2 Delivery O2 Flow Rate FiO2 04/21/18 12:31 98.4 107 18 105/64 98.4 04/21/18 11:00 95 Nasal Cannula 2.0 Labs Labs Laboratory Tests Test 04/20/18 05:25 04/20/18 05:54 04/20/18 09:50 04/20/18 11:45 White Blood Count 11.0 x10^3/uL (4.0-11.0) Red Blood Count 4.36 x10^6/uL (3.50-5.40) Hemoglobin 8.2 g/dL (12.0-15.5) Hematocrit 27.1 % (36.0-47.0) Mean Corpuscular Volume 62 fL (79-100) Mean Corpuscular Hemoglobin 19 pg (25-35) Mean Corpuscular Hemoglobin Concent 30 g/dL (31-37) Red Cell Distribution Width 26.2 % (11.5-14.5) Platelet Count 204 x10^3/uL (140-400) Neutrophils (%) (Auto) 86 % (31-73) Lymphocytes (%) (Auto) 1 % (24-48) Monocytes (%) (Auto) 13 % (0-9) Eosinophils (%) (Auto) 0 % (0-3) Basophils (%) (Auto) 0 % (0-3) Neutrophils # (Auto) 9.4 x10^3uL (1.8-7.7) Lymphocytes # (Auto) 0.2 x10^3/uL (1.0-4.8) Monocytes # (Auto) 1.4 x10^3/uL (0.0-1.1) Eosinophils # (Auto) 0.0 x10^3/uL (0.0-0.7) Basophils # (Auto) 0.0 x10^3/uL (0.0-0.2) Segmented Neutrophils % 43 % (35-66) Band Neutrophils % 49 % (0-9) Lymphocytes % 2 % (24-48) Monocytes % 6 % (0-10) Platelet Estimate Adequate (ADEQUATE) Large Platelets Few Polychromasia Present Hypochromasia Mod Poikilocytosis Present Anisocytosis Marked Microcytosis Marked Spherocytes Occ Target Cells Few Ovalocytes Present Schistocytes Occ Sodium Level 146 mmol/L (136-145) Potassium Level 4.3 mmol/L (3.5-5.1) Chloride Level 110 mmol/L (98-107) Carbon Dioxide Level 26 mmol/L (21-32) Anion Gap 10 (6-14) Blood Urea Nitrogen 39 mg/dL (7-20) Creatinine 1.0 mg/dL (0.6-1.0) Estimated GFR (Cockcroft-Gault) 55.1 Glucose Level 134 mg/dL (70-99) Calcium Level 8.6 mg/dL (8.5-10.1) Prothrombin Time 14.9 SEC (11.7-14.0) Prothromb Time International Ratio 1.2 (0.8-1.1) Lactic Acid Level 1.5 mmol/L (0.4-2.0) Urine Collection Type Unknown Urine Color Yellow Urine Clarity Clear Urine pH 5.5 Urine Specific [place] >=1.030 Urine Protein 30 mg/dL (NEG-TRACE) Urine Glucose (UA) 100 mg/dL (NEG) Urine Ketones (Stick) 15 mg/dL (NEG) Urine Blood Large (NEG) Urine Nitrite Negative (NEG) Urine Bilirubin Small (NEG) Urine Urobilinogen Dipstick 0.2 mg/dL (0.2 mg/dL) Urine Leukocyte Esterase Negative (NEG) Urine RBC >40 /HPF (0-2) Urine WBC 1-4 /HPF (0-4) Urine Squamous Epithelial Cells Few /LPF Urine Bacteria Few /HPF (0-FEW) Urine Hyaline Casts Few /HPF Urine Mucus Marked /LPF Test 04/21/18 04:25 04/21/18 12:10 White Blood Count 13.2 x10^3/uL (4.0-11.0) Red Blood Count 3.31 x10^6/uL (3.50-5.40) Hemoglobin 6.0 g/dL (12.0-15.5) 7.2 g/dL (12.0-15.5) Hematocrit 20.7 % (36.0-47.0) 22.5 % (36.0-47.0) Mean Corpuscular Volume 63 fL (79-100) Mean Corpuscular Hemoglobin 18 pg (25-35) Mean Corpuscular Hemoglobin Concent 29 g/dL (31-37) 32 g/dL (31-37) Red Cell Distribution Width 26.3 % (11.5-14.5) Platelet Count 156 x10^3/uL (140-400) Neutrophils (%) (Auto) 88 % (31-73) Lymphocytes (%) (Auto) 1 % (24-48) Monocytes (%) (Auto) 11 % (0-9) Eosinophils (%) (Auto) 0 % (0-3) Basophils (%) (Auto) 0 % (0-3) Neutrophils # (Auto) 11.6 x10^3uL (1.8-7.7) Lymphocytes # (Auto) 0.1 x10^3/uL (1.0-4.8) Monocytes # (Auto) 1.4 x10^3/uL (0.0-1.1) Eosinophils # (Auto) 0.0 x10^3/uL (0.0-0.7) Basophils # (Auto) 0.0 x10^3/uL (0.0-0.2) Sodium Level 147 mmol/L (136-145) Potassium Level 4.2 mmol/L (3.5-5.1) Chloride Level 116 mmol/L (98-107) Carbon Dioxide Level 25 mmol/L (21-32) Anion Gap 6 (6-14) Blood Urea Nitrogen 34 mg/dL (7-20) Creatinine 0.9 mg/dL (0.6-1.0) Estimated GFR (Cockcroft-Gault) 62.3 BUN/Creatinine Ratio 38 (6-20) Glucose Level 141 mg/dL (70-99) Calcium Level 8.3 mg/dL (8.5-10.1) Total Bilirubin 0.5 mg/dL (0.2-1.0) Aspartate Amino Transf (AST/SGOT) 9 U/L (15-37) Alanine Aminotransferase (ALT/SGPT) 7 U/L (14-59) Alkaline Phosphatase 36 U/L (46-116) Total Protein 4.8 g/dL (6.4-8.2) Albumin 1.7 g/dL (3.4-5.0) Albumin/Globulin Ratio 0.5 (1.0-1.7) Laboratory Tests Test 04/21/18 04:25 04/21/18 12:10 White Blood Count 13.2 x10^3/uL (4.0-11.0) Red Blood Count 3.31 x10^6/uL (3.50-5.40) Hemoglobin 6.0 g/dL (12.0-15.5) 7.2 g/dL (12.0-15.5) Hematocrit 20.7 % (36.0-47.0) 22.5 % (36.0-47.0) Mean Corpuscular Volume 63 fL (79-100) Mean Corpuscular Hemoglobin 18 pg (25-35) Mean Corpuscular Hemoglobin Concent 29 g/dL (31-37) 32 g/dL (31-37) Red Cell Distribution Width 26.3 % (11.5-14.5) Platelet Count 156 x10^3/uL (140-400) Neutrophils (%) (Auto) 88 % (31-73) Lymphocytes (%) (Auto) 1 % (24-48) Monocytes (%) (Auto) 11 % (0-9) Eosinophils (%) (Auto) 0 % (0-3) Basophils (%) (Auto) 0 % (0-3) Neutrophils # (Auto) 11.6 x10^3uL (1.8-7.7) Lymphocytes # (Auto) 0.1 x10^3/uL (1.0-4.8) Monocytes # (Auto) 1.4 x10^3/uL (0.0-1.1) Eosinophils # (Auto) 0.0 x10^3/uL (0.0-0.7) Basophils # (Auto) 0.0 x10^3/uL (0.0-0.2) Sodium Level 147 mmol/L (136-145) Potassium Level 4.2 mmol/L (3.5-5.1) Chloride Level 116 mmol/L (98-107) Carbon Dioxide Level 25 mmol/L (21-32) Anion Gap 6 (6-14) Blood Urea Nitrogen 34 mg/dL (7-20) Creatinine 0.9 mg/dL (0.6-1.0) Estimated GFR (Cockcroft-Gault) 62.3 BUN/Creatinine Ratio 38 (6-20) Glucose Level 141 mg/dL (70-99) Calcium Level 8.3 mg/dL (8.5-10.1) Total Bilirubin 0.5 mg/dL (0.2-1.0) Aspartate Amino Transf (AST/SGOT) 9 U/L (15-37) Alanine Aminotransferase (ALT/SGPT) 7 U/L (14-59) Alkaline Phosphatase 36 U/L (46-116) Total Protein 4.8 g/dL (6.4-8.2) Albumin 1.7 g/dL (3.4-5.0) Albumin/Globulin Ratio 0.5 (1.0-1.7) Images Images CT ABD/Pelvis IMPRESSION: 1. The gastrostomy tube tip terminates within the subcutaneous soft tissues. Associated free intraperitoneal gas and fluid is seen. Regions of the ventricular hypodensity in the pelvis, possibly hemorrhagic products or prior contrast administration. 2. Right renal caliectasis and dilation of the proximal right ureter/renal pelvis transitions to normal caliber distally. Given the lack of abrupt change or obstructing lesion, this may be physiologic for this patient. 3. 4 mm lingular lung nodule. In a high-risk patient follow-up CT in one year is recommended. Ultrasound: Assessment/Plan Assessment/Plan Hydronephrosis- Asymptomatic and no clear obstruction identified on Renal US/ CT. May be physiologic but will consult Dr. Ghosh for second opinion. Kidney function stable at 0.9 and BUN 34, afebrile. Urinary retention-Mild at 300 out, keep Purcell in place until patient is more mobile, then may proceed with voiding trial. Will follow. MARTHA GHOSH MD 04/22/18 1228: UROLOGY CONSULT Assessment/Plan Assessment/Plan Right HUN. Agree w h/p. Dilated but not obstructed, most likely physiological. AUR. May proceed w voiding trial before discharge. ZOHRA PRASAD APRN Apr 21, 2018 14:02 MARTHA GHOSH MD Apr 22, 2018 12:28
[2018-04-21] MEDS ORDERED: IV NORMAL SALINE 1000ML BAG 1,000 ML IV PRN (14:30)
--- NOTE | 2018-04-21 14:56 | RAD ---
Exam performed: One view chest. Indication: COUGH, DIMINISHED Date of Service: 04/21/2018 1:26 PM Comparison: 2 views chest from 09/26/2010. Single AP upright portable view chest findings: Study somewhat limited due to poor inspiration. Cardiomediastinal silhouette is within limits of normal. There is a hazy right basilar opacity with small right pleural effusion. Left-sided Port-A-Cath is noted. The bony structures are normal. Impression: Hazy bibasilar opacity likely infiltrate or atelectasis with effusion. Electronically signed by: Andreina Parsons MD (04/21/2018 2:52 PM) [facility]
[2018-04-21 17:55] LABS: HEMATOCRIT 27.4 % (36.0-47.0); HEMOGLOBIN 8.7 g/dL (12.0-15.5)
[2018-04-21] MEDS: PIPERACILLIN/TAZOBACTAM 3.375 GM in IV NORMAL SALINE 50ML 50 ML IV SCH (18:30)
[2018-04-22] MEDS: PIPERACILLIN/TAZOBACTAM 3.375 GM in IV NORMAL SALINE 50ML 50 ML IV SCH ×4 (00:47→16:53)
[2018-04-22 03:00] VITALS: BP 116/56
[2018-04-22 04:16] LABS: BASO % 0 % (0-3); EOS % 0 % (0-3); HEMATOCRIT 23.5 % (36.0-47.0); HEMOGLOBIN 7.5 g/dL (12.0-15.5); LYMPH # 0.5 x10^3/uL (1.0-4.8); LYMPH % 4 % (24-48); MEAN CORPUSCULAR HEMOGLOBIN 22 pg (25-35); MEAN CORPUSCULAR HGB CONC 32 g/dL (31-37); MEAN CORPUSCULAR VOLUME 69 fL (79-100); MONO # 0.5 x10^3/uL (0.0-1.1); MONO % 4 % (0-9); NEUT # 11.3 x10^3uL (1.8-7.7); NEUT % 92 % (31-73); PLATELET COUNT 129 x10^3/uL (140-400); RED BLOOD COUNT 3.43 x10^6/uL (3.50-5.40); RED CELL DISTRIBUTION WIDTH 30.6 % (11.5-14.5); WHITE BLOOD COUNT 12.3 x10^3/uL (4.0-11.0)
[2018-04-22 05:46] LABS: ALBUMIN 1.7 g/dL (3.4-5.0); ALBUMIN/GLOBULIN RATIO 0.5 (1.0-1.7); CALCIUM 8.2 mg/dL (8.5-10.1); CREATININE 0.8 mg/dL (0.6-1.0); GFR 71.3; POTASSIUM 3.9 mmol/L (3.5-5.1); TOTAL BILIRUBIN 0.7 mg/dL (0.2-1.0); TOTAL PROTEIN 4.9 g/dL (6.4-8.2)
[2018-04-22] MEDS: AMINO AC 3%/ELECTROLYTE/GLYCER 1,000 ML IV SCH ×2 (06:21→21:54)
[2018-04-22 07:00] VITALS: BP 130/59
[2018-04-22] MEDS: ENOXAPARIN 40 MG/0.4 ML SYRINGE. SQ SCH (07:51)
--- NOTE | 2018-04-22 08:44 | PDOC ---
JANET ALCANTARA TELEPHONE TRIAGE NURSE 04/22/18 0844: SURGICAL PROGRESS NOTE Subjective resting no n/v Vital Signs Vital Signs Date Time Temp Pulse Resp B/P (MAP) Pulse Ox O2 Delivery O2 Flow Rate FiO2 04/22/18 07:00 97.5 100 18 130/59 (82) 88 Room Air 97.5 04/22/18 03:00 2.0 I&O Intake and Output 04/22/18 07:01 Intake Total 1850 ml Output Total 1300 ml Balance 550 ml Intake Oral 0 ml IV Total 1350 ml Blood Product IV Normal Saline Flush 500 ml Output Urine Total 1300 ml General: Alert, Oriented X3, Cooperative, No acute distress Abdomen: Soft, Other (g tube to DD--bilious ) Labs Laboratory Tests Test 04/20/18 09:50 04/20/18 11:45 04/21/18 04:25 04/21/18 12:10 Lactic Acid Level 1.5 mmol/L (0.4-2.0) Urine Collection Type Unknown Urine Color Yellow Urine Clarity Clear Urine pH 5.5 Urine Specific [place] >=1.030 Urine Protein 30 mg/dL (NEG-TRACE) Urine Glucose (UA) 100 mg/dL (NEG) Urine Ketones (Stick) 15 mg/dL (NEG) Urine Blood Large (NEG) Urine Nitrite Negative (NEG) Urine Bilirubin Small (NEG) Urine Urobilinogen Dipstick 0.2 mg/dL (0.2 mg/dL) Urine Leukocyte Esterase Negative (NEG) Urine RBC >40 /HPF (0-2) Urine WBC 1-4 /HPF (0-4) Urine Squamous Epithelial Cells Few /LPF Urine Bacteria Few /HPF (0-FEW) Urine Hyaline Casts Few /HPF Urine Mucus Marked /LPF White Blood Count 13.2 x10^3/uL (4.0-11.0) Red Blood Count 3.31 x10^6/uL (3.50-5.40) Hemoglobin 6.0 g/dL (12.0-15.5) 7.2 g/dL (12.0-15.5) Hematocrit 20.7 % (36.0-47.0) 22.5 % (36.0-47.0) Mean Corpuscular Volume 63 fL (79-100) Mean Corpuscular Hemoglobin 18 pg (25-35) Mean Corpuscular Hemoglobin Concent 29 g/dL (31-37) 32 g/dL (31-37) Red Cell Distribution Width 26.3 % (11.5-14.5) Platelet Count 156 x10^3/uL (140-400) Neutrophils (%) (Auto) 88 % (31-73) Lymphocytes (%) (Auto) 1 % (24-48) Monocytes (%) (Auto) 11 % (0-9) Eosinophils (%) (Auto) 0 % (0-3) Basophils (%) (Auto) 0 % (0-3) Neutrophils # (Auto) 11.6 x10^3uL (1.8-7.7) Lymphocytes # (Auto) 0.1 x10^3/uL (1.0-4.8) Monocytes # (Auto) 1.4 x10^3/uL (0.0-1.1) Eosinophils # (Auto) 0.0 x10^3/uL (0.0-0.7) Basophils # (Auto) 0.0 x10^3/uL (0.0-0.2) Sodium Level 147 mmol/L (136-145) Potassium Level 4.2 mmol/L (3.5-5.1) Chloride Level 116 mmol/L (98-107) Carbon Dioxide Level 25 mmol/L (21-32) Anion Gap 6 (6-14) Blood Urea Nitrogen 34 mg/dL (7-20) Creatinine 0.9 mg/dL (0.6-1.0) Estimated GFR (Cockcroft-Gault) 62.3 BUN/Creatinine Ratio 38 (6-20) Glucose Level 141 mg/dL (70-99) Calcium Level 8.3 mg/dL (8.5-10.1) Total Bilirubin 0.5 mg/dL (0.2-1.0) Aspartate Amino Transf (AST/SGOT) 9 U/L (15-37) Alanine Aminotransferase (ALT/SGPT) 7 U/L (14-59) Alkaline Phosphatase 36 U/L (46-116) Total Protein 4.8 g/dL (6.4-8.2) Albumin 1.7 g/dL (3.4-5.0) Albumin/Globulin Ratio 0.5 (1.0-1.7) Test 04/21/18 17:45 04/22/18 03:25 Hemoglobin 8.7 g/dL (12.0-15.5) 7.5 g/dL (12.0-15.5) Hematocrit 27.4 % (36.0-47.0) 23.5 % (36.0-47.0) Mean Corpuscular Hemoglobin Concent 32 g/dL (31-37) 32 g/dL (31-37) White Blood Count 12.3 x10^3/uL (4.0-11.0) Red Blood Count 3.43 x10^6/uL (3.50-5.40) Mean Corpuscular Volume 69 fL (79-100) Mean Corpuscular Hemoglobin 22 pg (25-35) Red Cell Distribution Width 30.6 % (11.5-14.5) Platelet Count 129 x10^3/uL (140-400) Neutrophils (%) (Auto) 92 % (31-73) Lymphocytes (%) (Auto) 4 % (24-48) Monocytes (%) (Auto) 4 % (0-9) Eosinophils (%) (Auto) 0 % (0-3) Basophils (%) (Auto) 0 % (0-3) Neutrophils # (Auto) 11.3 x10^3uL (1.8-7.7) Lymphocytes # (Auto) 0.5 x10^3/uL (1.0-4.8) Monocytes # (Auto) 0.5 x10^3/uL (0.0-1.1) Eosinophils # (Auto) 0.0 x10^3/uL (0.0-0.7) Basophils # (Auto) 0.0 x10^3/uL (0.0-0.2) Sodium Level 141 mmol/L (136-145) Potassium Level 3.9 mmol/L (3.5-5.1) Chloride Level 111 mmol/L (98-107) Carbon Dioxide Level 26 mmol/L (21-32) Anion Gap 4 (6-14) Blood Urea Nitrogen 26 mg/dL (7-20) Creatinine 0.8 mg/dL (0.6-1.0) Estimated GFR (Cockcroft-Gault) 71.3 BUN/Creatinine Ratio 33 (6-20) Glucose Level 126 mg/dL (70-99) Calcium Level 8.2 mg/dL (8.5-10.1) Total Bilirubin 0.7 mg/dL (0.2-1.0) Aspartate Amino Transf (AST/SGOT) 11 U/L (15-37) Alanine Aminotransferase (ALT/SGPT) 7 U/L (14-59) Alkaline Phosphatase 39 U/L (46-116) Total Protein 4.9 g/dL (6.4-8.2) Albumin 1.7 g/dL (3.4-5.0) Albumin/Globulin Ratio 0.5 (1.0-1.7) Laboratory Tests Test 04/21/18 12:10 04/21/18 17:45 04/22/18 03:25 Hemoglobin 7.2 g/dL (12.0-15.5) 8.7 g/dL (12.0-15.5) 7.5 g/dL (12.0-15.5) Hematocrit 22.5 % (36.0-47.0) 27.4 % (36.0-47.0) 23.5 % (36.0-47.0) Mean Corpuscular Hemoglobin Concent 32 g/dL (31-37) 32 g/dL (31-37) 32 g/dL (31-37) White Blood Count 12.3 x10^3/uL (4.0-11.0) Red Blood Count 3.43 x10^6/uL (3.50-5.40) Mean Corpuscular Volume 69 fL (79-100) Mean Corpuscular Hemoglobin 22 pg (25-35) Red Cell Distribution Width 30.6 % (11.5-14.5) Platelet Count 129 x10^3/uL (140-400) Neutrophils (%) (Auto) 92 % (31-73) Lymphocytes (%) (Auto) 4 % (24-48) Monocytes (%) (Auto) 4 % (0-9) Eosinophils (%) (Auto) 0 % (0-3) Basophils (%) (Auto) 0 % (0-3) Neutrophils # (Auto) 11.3 x10^3uL (1.8-7.7) Lymphocytes # (Auto) 0.5 x10^3/uL (1.0-4.8) Monocytes # (Auto) 0.5 x10^3/uL (0.0-1.1) Eosinophils # (Auto) 0.0 x10^3/uL (0.0-0.7) Basophils # (Auto) 0.0 x10^3/uL (0.0-0.2) Sodium Level 141 mmol/L (136-145) Potassium Level 3.9 mmol/L (3.5-5.1) Chloride Level 111 mmol/L (98-107) Carbon Dioxide Level 26 mmol/L (21-32) Anion Gap 4 (6-14) Blood Urea Nitrogen 26 mg/dL (7-20) Creatinine 0.8 mg/dL (0.6-1.0) Estimated GFR (Cockcroft-Gault) 71.3 BUN/Creatinine Ratio 33 (6-20) Glucose Level 126 mg/dL (70-99) Calcium Level 8.2 mg/dL (8.5-10.1) Total Bilirubin 0.7 mg/dL (0.2-1.0) Aspartate Amino Transf (AST/SGOT) 11 U/L (15-37) Alanine Aminotransferase (ALT/SGPT) 7 U/L (14-59) Alkaline Phosphatase 39 U/L (46-116) Total Protein 4.9 g/dL (6.4-8.2) Albumin 1.7 g/dL (3.4-5.0) Albumin/Globulin Ratio 0.5 (1.0-1.7) Problem List s/p g tube replacement continue abx g tube to DD LASHAUN IZQUIERDO MD 04/23/18 1054: SURGICAL PROGRESS NOTE Assessment/Plan Agree with Kinsey's assessment and plan JANET ALCANTARA APRN Apr 22, 2018 08:44 LASHAUN IZQUIERDO MD Apr 23, 2018 10:54
[2018-04-22] MEDS: DOCUSATE SODIUM 100 MG CAPSULE. PO SCH (09:00)
[2018-04-22 11:00] VITALS: BP 117/73
[2018-04-22] MEDS ORDERED: SALIVA STIMULANT AGENT 44ML SPRAY BOTTLE. PO PRN (11:45)
--- NOTE | 2018-04-22 12:21 | PDOC ---
PROGRESS NOTES Chief Complaint Chief Complaint aspriation dysphagia, failed swallow eval RECENT PEG tube placement and free intraperitoneal gas and fluid possible mild hydronephrosis and right hydroureter anemia HX esophageal ca new dx peritonitis severe malnutrition, POA History of Present Illness History of Present Illness GEN SURG following urology consult REVIEWED Zosyn started for probably aspiration, pod # 3 surgical repair NPO, on PPN, consult nutrition PEG feeds soon Vitals Vitals Vital Signs Date Time Temp Pulse Resp B/P (MAP) Pulse Ox O2 Delivery O2 Flow Rate FiO2 04/22/18 11:00 97.7 109 18 117/73 (88) 90 Room Air 97.7 04/22/18 08:10 2.0 Physical Exam General: Alert, Oriented X3, Cooperative, No acute distress Heart: Regular rate, Normal S1, Normal S2, No murmurs Lungs: Clear Abdomen: Soft, Other (g tube to DD--bilious ) Extremities: No clubbing, No cyanosis, No edema Skin: No rashes, No breakdown Labs LABS Laboratory Tests Test 04/21/18 17:45 04/22/18 03:25 Hemoglobin 8.7 g/dL (12.0-15.5) 7.5 g/dL (12.0-15.5) Hematocrit 27.4 % (36.0-47.0) 23.5 % (36.0-47.0) Mean Corpuscular Hemoglobin Concent 32 g/dL (31-37) 32 g/dL (31-37) White Blood Count 12.3 x10^3/uL (4.0-11.0) Red Blood Count 3.43 x10^6/uL (3.50-5.40) Mean Corpuscular Volume 69 fL (79-100) Mean Corpuscular Hemoglobin 22 pg (25-35) Red Cell Distribution Width 30.6 % (11.5-14.5) Platelet Count 129 x10^3/uL (140-400) Neutrophils (%) (Auto) 92 % (31-73) Lymphocytes (%) (Auto) 4 % (24-48) Monocytes (%) (Auto) 4 % (0-9) Eosinophils (%) (Auto) 0 % (0-3) Basophils (%) (Auto) 0 % (0-3) Neutrophils # (Auto) 11.3 x10^3uL (1.8-7.7) Lymphocytes # (Auto) 0.5 x10^3/uL (1.0-4.8) Monocytes # (Auto) 0.5 x10^3/uL (0.0-1.1) Eosinophils # (Auto) 0.0 x10^3/uL (0.0-0.7) Basophils # (Auto) 0.0 x10^3/uL (0.0-0.2) Sodium Level 141 mmol/L (136-145) Potassium Level 3.9 mmol/L (3.5-5.1) Chloride Level 111 mmol/L (98-107) Carbon Dioxide Level 26 mmol/L (21-32) Anion Gap 4 (6-14) Blood Urea Nitrogen 26 mg/dL (7-20) Creatinine 0.8 mg/dL (0.6-1.0) Estimated GFR (Cockcroft-Gault) 71.3 BUN/Creatinine Ratio 33 (6-20) Glucose Level 126 mg/dL (70-99) Calcium Level 8.2 mg/dL (8.5-10.1) Total Bilirubin 0.7 mg/dL (0.2-1.0) Aspartate Amino Transf (AST/SGOT) 11 U/L (15-37) Alanine Aminotransferase (ALT/SGPT) 7 U/L (14-59) Alkaline Phosphatase 39 U/L (46-116) Total Protein 4.9 g/dL (6.4-8.2) Albumin 1.7 g/dL (3.4-5.0) Albumin/Globulin Ratio 0.5 (1.0-1.7) Review of Systems Review of Systems no n.v.d marked weakenss, cough, with sputum Comment Review of Relevant I have reviewed the following items herbie (where applicable) has been applied. Labs Laboratory Tests Test 04/21/18 04:25 04/21/18 12:10 04/21/18 17:45 04/22/18 03:25 White Blood Count 13.2 x10^3/uL (4.0-11.0) 12.3 x10^3/uL (4.0-11.0) Red Blood Count 3.31 x10^6/uL (3.50-5.40) 3.43 x10^6/uL (3.50-5.40) Hemoglobin 6.0 g/dL (12.0-15.5) 7.2 g/dL (12.0-15.5) 8.7 g/dL (12.0-15.5) 7.5 g/dL (12.0-15.5) Hematocrit 20.7 % (36.0-47.0) 22.5 % (36.0-47.0) 27.4 % (36.0-47.0) 23.5 % (36.0-47.0) Mean Corpuscular Volume 63 fL (79-100) 69 fL (79-100) Mean Corpuscular Hemoglobin 18 pg (25-35) 22 pg (25-35) Mean Corpuscular Hemoglobin Concent 29 g/dL (31-37) 32 g/dL (31-37) 32 g/dL (31-37) 32 g/dL (31-37) Red Cell Distribution Width 26.3 % (11.5-14.5) 30.6 % (11.5-14.5) Platelet Count 156 x10^3/uL (140-400) 129 x10^3/uL (140-400) Neutrophils (%) (Auto) 88 % (31-73) 92 % (31-73) Lymphocytes (%) (Auto) 1 % (24-48) 4 % (24-48) Monocytes (%) (Auto) 11 % (0-9) 4 % (0-9) Eosinophils (%) (Auto) 0 % (0-3) 0 % (0-3) Basophils (%) (Auto) 0 % (0-3) 0 % (0-3) Neutrophils # (Auto) 11.6 x10^3uL (1.8-7.7) 11.3 x10^3uL (1.8-7.7) Lymphocytes # (Auto) 0.1 x10^3/uL (1.0-4.8) 0.5 x10^3/uL (1.0-4.8) Monocytes # (Auto) 1.4 x10^3/uL (0.0-1.1) 0.5 x10^3/uL (0.0-1.1) Eosinophils # (Auto) 0.0 x10^3/uL (0.0-0.7) 0.0 x10^3/uL (0.0-0.7) Basophils # (Auto) 0.0 x10^3/uL (0.0-0.2) 0.0 x10^3/uL (0.0-0.2) Sodium Level 147 mmol/L (136-145) 141 mmol/L (136-145) Potassium Level 4.2 mmol/L (3.5-5.1) 3.9 mmol/L (3.5-5.1) Chloride Level 116 mmol/L (98-107) 111 mmol/L (98-107) Carbon Dioxide Level 25 mmol/L (21-32) 26 mmol/L (21-32) Anion Gap 6 (6-14) 4 (6-14) Blood Urea Nitrogen 34 mg/dL (7-20) 26 mg/dL (7-20) Creatinine 0.9 mg/dL (0.6-1.0) 0.8 mg/dL (0.6-1.0) Estimated GFR (Cockcroft-Gault) 62.3 71.3 BUN/Creatinine Ratio 38 (6-20) 33 (6-20) Glucose Level 141 mg/dL (70-99) 126 mg/dL (70-99) Calcium Level 8.3 mg/dL (8.5-10.1) 8.2 mg/dL (8.5-10.1) Total Bilirubin 0.5 mg/dL (0.2-1.0) 0.7 mg/dL (0.2-1.0) Aspartate Amino Transf (AST/SGOT) 9 U/L (15-37) 11 U/L (15-37) Alanine Aminotransferase (ALT/SGPT) 7 U/L (14-59) 7 U/L (14-59) Alkaline Phosphatase 36 U/L (46-116) 39 U/L (46-116) Total Protein 4.8 g/dL (6.4-8.2) 4.9 g/dL (6.4-8.2) Albumin 1.7 g/dL (3.4-5.0) 1.7 g/dL (3.4-5.0) Albumin/Globulin Ratio 0.5 (1.0-1.7) 0.5 (1.0-1.7) Laboratory Tests Test 04/21/18 17:45 04/22/18 03:25 Hemoglobin 8.7 g/dL (12.0-15.5) 7.5 g/dL (12.0-15.5) Hematocrit 27.4 % (36.0-47.0) 23.5 % (36.0-47.0) Mean Corpuscular Hemoglobin Concent 32 g/dL (31-37) 32 g/dL (31-37) White Blood Count 12.3 x10^3/uL (4.0-11.0) Red Blood Count 3.43 x10^6/uL (3.50-5.40) Mean Corpuscular Volume 69 fL (79-100) Mean Corpuscular Hemoglobin 22 pg (25-35) Red Cell Distribution Width 30.6 % (11.5-14.5) Platelet Count 129 x10^3/uL (140-400) Neutrophils (%) (Auto) 92 % (31-73) Lymphocytes (%) (Auto) 4 % (24-48) Monocytes (%) (Auto) 4 % (0-9) Eosinophils (%) (Auto) 0 % (0-3) Basophils (%) (Auto) 0 % (0-3) Neutrophils # (Auto) 11.3 x10^3uL (1.8-7.7) Lymphocytes # (Auto) 0.5 x10^3/uL (1.0-4.8) Monocytes # (Auto) 0.5 x10^3/uL (0.0-1.1) Eosinophils # (Auto) 0.0 x10^3/uL (0.0-0.7) Basophils # (Auto) 0.0 x10^3/uL (0.0-0.2) Sodium Level 141 mmol/L (136-145) Potassium Level 3.9 mmol/L (3.5-5.1) Chloride Level 111 mmol/L (98-107) Carbon Dioxide Level 26 mmol/L (21-32) Anion Gap 4 (6-14) Blood Urea Nitrogen 26 mg/dL (7-20) Creatinine 0.8 mg/dL (0.6-1.0) Estimated GFR (Cockcroft-Gault) 71.3 BUN/Creatinine Ratio 33 (6-20) Glucose Level 126 mg/dL (70-99) Calcium Level 8.2 mg/dL (8.5-10.1) Total Bilirubin 0.7 mg/dL (0.2-1.0) Aspartate Amino Transf (AST/SGOT) 11 U/L (15-37) Alanine Aminotransferase (ALT/SGPT) 7 U/L (14-59) Alkaline Phosphatase 39 U/L (46-116) Total Protein 4.9 g/dL (6.4-8.2) Albumin 1.7 g/dL (3.4-5.0) Albumin/Globulin Ratio 0.5 (1.0-1.7) Microbiology 04/20/18 Blood Culture - Preliminary, Resulted NO GROWTH AFTER 1 DAY Medications Current Medications Sodium Chloride 1,000 ml @ 100 mls/hr Q10H IV Last administered on 04/20/18at 18:17; Start 04/19/18 at 21:00; Stop 04/21/18 at 14:28; Status DC Morphine Sulfate (Morphine Sulfate) 2 mg PRN Q4HRS PRN IV SEVERE PAIN Last administered on 04/20/18at 10:04; Start 04/19/18 at 21:00; Stop 04/20/18 at 18:10 ; Status DC Ondansetron HCl (Zofran) 4 mg PRN Q6HRS PRN IV NAUSEA/VOMITING 1ST CHOICE Last administered on 04/20/18at 10:04; Start 04/19/18 at 21:00 Sodium Chloride 1,000 ml @ 1,000 mls/hr 1X ONCE IV Last administered on at 10:05; Start 04/20/18 at 08:15; Stop 04/20/18 at 09:14; Status DC Ceftriaxone Sodium (Rocephin) 1 gm Q24H IVP Last administered on 04/21/18at 07: 37; Start 04/20/18 at 09:00; Stop 04/21/18 at 18:05; Status DC Metronidazole 100 ml @ 100 mls/hr Q8HRS IV Last administered on 04/22/18at 12: 00; Start 04/20/18 at 14:00 Propofol 20 ml @ As Directed STK-MED ONCE IV ; Start 04/20/18 at 15:46; Stop at 15:48; Status DC Lidocaine HCl (Lidocaine Pf 2% Vial) 5 ml STK-MED ONCE .ROUTE ; Start 04/20/18 at 15:46; Stop 04/20/18 at 15:48; Status DC Dexamethasone Sodium Phosphate (Decadron) 20 mg STK-MED ONCE .ROUTE ; Start at 15:47; Stop 04/20/18 at 15:48; Status DC Ondansetron HCl (Zofran) 4 mg STK-MED ONCE .ROUTE ; Start 04/20/18 at 15:47; Stop 04/20/18 at 15:48; Status DC Rocuronium [place] (Zemuron) 50 mg STK-MED ONCE .ROUTE ; Start 04/20/18 at 15:47 ; Stop 04/20/18 at 15:49; Status DC Fentanyl Citrate (Fentanyl 2ml Vial) 100 mcg STK-MED ONCE .ROUTE ; Start at 15:47; Stop 04/20/18 at 15:49; Status DC Bupivacaine HCl/ Epinephrine Bitart (Sensorcain-Mpf Epi 0.5%-[id number]) 30 ml STK -MED ONCE .ROUTE Last administered on 04/20/18at 17:02; Start 04/20/18 at 16:22 ; Stop 04/20/18 at 16:24; Status DC Sevoflurane (Ultane) 30 ml STK-MED ONCE IH ; Start 04/20/18 at 16:35; Stop 04/20 at 16:36; Status DC Succinylcholine Chloride (Anectine) 200 mg STK-MED ONCE .ROUTE ; Start 04/20/18 at 16:38; Stop 04/20/18 at 16:40; Status DC Glycopyrrolate (Robinul) 1 mg STK-MED ONCE .ROUTE ; Start 04/20/18 at 17:08; Stop 04/20/18 at 17:09; Status DC Neostigmine Methylsulfate (Bloxiverz) 10 mg STK-MED ONCE .ROUTE ; Start at 17:08; Stop 04/20/18 at 17:10; Status DC Sevoflurane (Ultane) 60 ml STK-MED ONCE IH ; Start 04/20/18 at 17:26; Stop 04/20 at 17:28; Status DC Enoxaparin Sodium (Lovenox 40mg Syringe) 40 mg Q24H SQ Last administered on at 07:51; Start 04/21/18 at 09:00 Sodium Chloride (Normal Saline Flush) 3 ml QSHIFT PRN IV AFTER MEDS AND BLOOD DRAWS; Start 04/20/18 at 18:15 Ringer's Solution 1,000 ml @ 100 mls/hr Q10H IV Last administered on at 06:00; Start 04/20/18 at 19:00; Stop 04/21/18 at 14:28; Status DC Morphine Sulfate 30 ml @ 0 mls/hr CONT PRN PRN IV PER PROTOCOL Last administered on 04/20/18at 19:03; Start 04/20/18 at 18:15 Docusate Sodium (Colace) 100 mg BID PO Last administered on 04/21/18at 07:36; Start 04/20/18 at 21:00 Ondansetron HCl (Zofran) 4 mg PRN Q6HRS PRN IV NAUESA, 1ST CHOICE; Start at 18:15; Status UNV Amino Acids/ Glycerin/ Electrolytes 1,000 ml @ 80 mls/hr [id number] IV Last administered on 04/22/18at 06:21; Start 04/20/18 at 21:00 Fentanyl Citrate (Fentanyl 2ml Vial) 100 mcg STK-MED ONCE .ROUTE ; Start at 18:52; Stop 04/20/18 at 18:54; Status DC Ondansetron HCl (Zofran) 4 mg PRN Q6HRS PRN IV NAUSEA/VOMITING; Start 04/20/18 at 19:00; Stop 04/20/18 at 23:59; Status DC Fentanyl Citrate (Fentanyl 2ml Vial) 25 mcg PRN Q5MIN PRN IV MILD PAIN Last administered on 04/20/18at 19:30; Start 04/20/18 at 19:00; Stop 04/20/18 at 23:59 ; Status DC Fentanyl Citrate (Fentanyl 2ml Vial) 50 mcg PRN Q5MIN PRN IV MODERATE TO SEVERE PAIN; Start 04/20/18 at 19:00; Stop 04/20/18 at 23:59; Status DC Morphine Sulfate (Morphine Sulfate) 1 mg PRN Q10MIN PRN IV SEVERE PAIN; Start 04/20/18 at 19:00; Stop 04/20/18 at 23:59; Status DC Ringer's Solution 1,000 ml @ 30 mls/hr Q24H IV ; Start 04/20/18 at 19:00; Stop 04/20/18 at 23:59; Status DC Lidocaine HCl (Xylocaine-Mpf 1% 2ml Vial) 2 ml PRN 1X PRN ID PRIOR TO IV START ; Start 04/20/18 at 19:00; Stop 04/20/18 at 23:59; Status DC Hydromorphone HCl (Dilaudid) 0.5 mg PRN Q10MIN PRN IV SEV PAIN, Second choice; Start 04/20/18 at 19:00; Stop 04/20/18 at 23:59; Status DC Prochlorperazine Edisylate (Compazine) 5 mg PACU PRN PRN IV NAUSEA, MRX1; Start 04/20/18 at 19:00; Stop 04/20/18 at 23:59; Status DC Acetaminophen (Tylenol) 650 mg 1X PRN PRN PO PRE-TRANSFUSION; Start 04/21/18 at 13:15 Sodium Chloride 1,000 ml @ 25 mls/hr Q24H PRN IV 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 AND AIR 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 MECHANIC carrier; Start 04/21/18 at 14:30 Piperacillin Sod/ Tazobactam Sod 3.375 gm/Sodium Chloride 50 ml @ 100 mls/hr Q6HRS IV Last administered on 04/22/18at 11:57; Start 04/21/18 at 18:30 Saliva Substitute (Biotene Moisturizing Mouth) 2 spray PRN Q15MIN PRN PO DRY MOUTH; Start 04/22/18 at 11:45 Active Scripts Active Reported Hydrocodone-Acetamn 7.5-325/15 (Hydrocodone/Acetaminophen) 15 Ml Solution 15 Ml PO Q4HRS Plaquenil (Hydroxychloroquine Sulfate) 200 Mg Tablet 200 Mg PO BID Sulindac 200 Mg Tablet 200 Mg PO BID Ibuprofen 600 Mg Tablet 600 Mg PO PRN Q6HRS PRN Vitals/I & O Vital Sign - Last 24 Hours 04/21/18 04/21/18 04/21/18 04/21/18 12:31 14:04 14:10 14:25 Temp 98.4 98.4 97.8 98.3 98.4 98.4 97.8 98.3 Pulse 107 107 107 105 Resp 18 18 16 18 B/P (MAP) 105/64 105/64 115/57 112/67 04/21/18 04/21/18 04/21/18 04/21/18 15:00 15:25 16:46 17:46 Temp 97.4 97.4 97.4 98.6 97.4 97.4 97.4 98.6 Pulse 90 90 99 106 Resp 16 16 B/P (MAP) 101/65 (77) 101/65 126/70 117/72 Pulse Ox 96 O2 Delivery Nasal Cannula O2 Flow Rate 2.0 04/21/18 04/21/18 04/21/18 04/22/18 19:00 20:20 23:00 03:00 Temp 97.9 98.3 97.6 97.9 98.3 97.6 Pulse 94 109 100 Resp 18 18 18 B/P (MAP) 125/63 (83) 137/79 (98) 116/56 (76) Pulse Ox 94 95 93 O2 Delivery Nasal Cannula Nasal Cannula Nasal Cannula Nasal Cannula O2 Flow Rate 2.0 2.0 2.0 2.0 04/22/18 04/22/18 04/22/18 07:00 08:10 11:00 Temp 97.5 97.7 97.5 97.7 Pulse 100 109 Resp 18 18 B/P (MAP) 130/59 (82) 117/73 (88) Pulse Ox 88 90 O2 Delivery Room Air Nasal Cannula Room Air O2 Flow Rate 2.0 Intake and Output 04/21/18 04/21/18 04/22/18 15:01 23:01 07:01 Intake Total 400 ml 150 ml 1300 ml Output Total 550 ml 750 ml Balance 400 ml -400 ml 550 ml Nutrition Consultation Dietary Evaluation: Recommendations by RD: Increase Calorie Intake, Protein supplementation, PPN/ TPN Expected Outcomes/Goals: to meet > 75% est nutr needs via tube feedings Interpretation of weight loss: >5% in 1 month Malnutrition Findings: Food and Nutrition Intake (Sev: <50% est energy req 5days Weight Status: Overweight AYAZ DALTON MD Apr 22, 2018 12:21
[2018-04-22 15:00] VITALS: BP 118/63
--- NOTE | 2018-04-22 15:20 | NUR ---
SW following for discharge planning. Chart reviewed, discussed with RN. SW met with pt to discuss discharge planning. Pt reported she was getting her tube feedings through [facility], but reports she has some costs associated with this. Pt reports she is not currently on service with a home health agency but is agreeable to having this upon discharge. Pt would like [facility]. SW contacted [facility], they reported pt is on service with them and pt has not met her out of pocket with her insurance which is why she has some costs associated. Pt does not have insurance coverage for her formula though which is $2 per can. SW will continue to follow.
[2018-04-22 19:00] VITALS: BP 128/68
[2018-04-22] MEDS ORDERED: BISACODYL 10 MG SUPP.RECT. PR PRN (19:45)
--- NOTE | 2018-04-22 19:53 | PDOC ---
Progress Note Subjective Subjective no acute events, no renal colic, no gh. ROS ROS No nausea No vomiting No pain No rash Vital Sign Vital Signs Vital Signs Date Time Temp Pulse Resp B/P (MAP) Pulse Ox O2 Delivery O2 Flow Rate FiO2 04/22/18 15:00 97.4 100 18 118/63 (81) 93 Room Air 97.4 04/22/18 08:10 2.0 Physical Exam PHYSICAL EXAM GENERAL: NAD, Alert HEENT: PERRL, OC/OP NECK: Supple, no JVD, no LN LUNGS: Clear HEART: S1S2, no gallop, no murmur ABD: Soft, NT, no organomegaly, no rebound EXT: No edema, no cyanosis NETWORK SUPPORT ANALYST: Alert, 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, no focal neurologic deficit SKIN: No rash IV: ok Labs Lab Laboratory Tests Test 04/22/18 03:25 White Blood Count 12.3 x10^3/uL (4.0-11.0) Red Blood Count 3.43 x10^6/uL (3.50-5.40) Hemoglobin 7.5 g/dL (12.0-15.5) Hematocrit 23.5 % (36.0-47.0) Mean Corpuscular Volume 69 fL (79-100) Mean Corpuscular Hemoglobin 22 pg (25-35) Mean Corpuscular Hemoglobin Concent 32 g/dL (31-37) Red Cell Distribution Width 30.6 % (11.5-14.5) Platelet Count 129 x10^3/uL (140-400) Neutrophils (%) (Auto) 92 % (31-73) Lymphocytes (%) (Auto) 4 % (24-48) Monocytes (%) (Auto) 4 % (0-9) Eosinophils (%) (Auto) 0 % (0-3) Basophils (%) (Auto) 0 % (0-3) Neutrophils # (Auto) 11.3 x10^3uL (1.8-7.7) Lymphocytes # (Auto) 0.5 x10^3/uL (1.0-4.8) Monocytes # (Auto) 0.5 x10^3/uL (0.0-1.1) Eosinophils # (Auto) 0.0 x10^3/uL (0.0-0.7) Basophils # (Auto) 0.0 x10^3/uL (0.0-0.2) Sodium Level 141 mmol/L (136-145) Potassium Level 3.9 mmol/L (3.5-5.1) Chloride Level 111 mmol/L (98-107) Carbon Dioxide Level 26 mmol/L (21-32) Anion Gap 4 (6-14) Blood Urea Nitrogen 26 mg/dL (7-20) Creatinine 0.8 mg/dL (0.6-1.0) Estimated GFR (Cockcroft-Gault) 71.3 BUN/Creatinine Ratio 33 (6-20) Glucose Level 126 mg/dL (70-99) Calcium Level 8.2 mg/dL (8.5-10.1) Total Bilirubin 0.7 mg/dL (0.2-1.0) Aspartate Amino Transf (AST/SGOT) 11 U/L (15-37) Alanine Aminotransferase (ALT/SGPT) 7 U/L (14-59) Alkaline Phosphatase 39 U/L (46-116) Total Protein 4.9 g/dL (6.4-8.2) Albumin 1.7 g/dL (3.4-5.0) Albumin/Globulin Ratio 0.5 (1.0-1.7) Objective Assessment right hydro. poor urine flow/incomplete emptying. Plan Plan of Care may dc cath at discharge. right hydro, physiological, clinically insignificant. No further ring needed. Will sign off, call w?. Nutrition Consultation Dietary Evaluation: Recommendations by RD: Increase Calorie Intake, Protein supplementation, PPN/ TPN Expected Outcomes/Goals: to meet > 75% est nutr needs via tube feedings Interpretation of weight loss: >5% in 1 month Malnutrition Findings: Food and Nutrition Intake (Sev: <50% est energy req 5days Weight Status: Overweight MARTHA EASON MD Apr 22, 2018 19:53
[2018-04-22 22:42] VITALS: BP 143/66
[2018-04-23] MEDS: PIPERACILLIN/TAZOBACTAM 3.375 GM in IV NORMAL SALINE 50ML 50 ML IV SCH ×4 (00:02→17:31)
[2018-04-23 02:37] VITALS: BP 127/80
[2018-04-23 07:00] VITALS: BP 133/67
[2018-04-23] MEDS: ENOXAPARIN 40 MG/0.4 ML SYRINGE. SQ SCH (08:28)
--- NOTE | 2018-04-23 08:30 | NUR ---
G tube clamped per WILLA Estrella.
--- NOTE | 2018-04-23 09:00 | PDOC ---
JANET ALCANTARA ASSOCIATE PROFESSOR OF ANTHROPOLOGY 04/23/18 0900: SURGICAL PROGRESS NOTE Subjective resting no n/v failed swallow Vital Signs Vital Signs Date Time Temp Pulse Resp B/P (MAP) Pulse Ox O2 Delivery O2 Flow Rate FiO2 04/23/18 07:36 Room Air 04/23/18 07:00 97.7 96 18 133/67 (89) 91 97.7 04/22/18 08:10 2.0 I&O Intake and Output 04/23/18 07:01 Intake Total 1920 ml Output Total 1350 ml Balance 570 ml Intake Oral 0 ml IV Total 960 ml Other 960 ml Output Urine Total 1300 ml Gastric Drainage Total 50 ml # Voids 2 General: Alert, Oriented X3, Cooperative, No acute distress Abdomen: Soft, Other (gtube in place) Labs Laboratory Tests Test 04/21/18 12:10 04/21/18 17:45 04/22/18 03:25 Hemoglobin 7.2 g/dL (12.0-15.5) 8.7 g/dL (12.0-15.5) 7.5 g/dL (12.0-15.5) Hematocrit 22.5 % (36.0-47.0) 27.4 % (36.0-47.0) 23.5 % (36.0-47.0) Mean Corpuscular Hemoglobin Concent 32 g/dL (31-37) 32 g/dL (31-37) 32 g/dL (31-37) White Blood Count 12.3 x10^3/uL (4.0-11.0) Red Blood Count 3.43 x10^6/uL (3.50-5.40) Mean Corpuscular Volume 69 fL (79-100) Mean Corpuscular Hemoglobin 22 pg (25-35) Red Cell Distribution Width 30.6 % (11.5-14.5) Platelet Count 129 x10^3/uL (140-400) Neutrophils (%) (Auto) 92 % (31-73) Lymphocytes (%) (Auto) 4 % (24-48) Monocytes (%) (Auto) 4 % (0-9) Eosinophils (%) (Auto) 0 % (0-3) Basophils (%) (Auto) 0 % (0-3) Neutrophils # (Auto) 11.3 x10^3uL (1.8-7.7) Lymphocytes # (Auto) 0.5 x10^3/uL (1.0-4.8) Monocytes # (Auto) 0.5 x10^3/uL (0.0-1.1) Eosinophils # (Auto) 0.0 x10^3/uL (0.0-0.7) Basophils # (Auto) 0.0 x10^3/uL (0.0-0.2) Sodium Level 141 mmol/L (136-145) Potassium Level 3.9 mmol/L (3.5-5.1) Chloride Level 111 mmol/L (98-107) Carbon Dioxide Level 26 mmol/L (21-32) Anion Gap 4 (6-14) Blood Urea Nitrogen 26 mg/dL (7-20) Creatinine 0.8 mg/dL (0.6-1.0) Estimated GFR (Cockcroft-Gault) 71.3 BUN/Creatinine Ratio 33 (6-20) Glucose Level 126 mg/dL (70-99) Calcium Level 8.2 mg/dL (8.5-10.1) Total Bilirubin 0.7 mg/dL (0.2-1.0) Aspartate Amino Transf (AST/SGOT) 11 U/L (15-37) Alanine Aminotransferase (ALT/SGPT) 7 U/L (14-59) Alkaline Phosphatase 39 U/L (46-116) Total Protein 4.9 g/dL (6.4-8.2) Albumin 1.7 g/dL (3.4-5.0) Albumin/Globulin Ratio 0.5 (1.0-1.7) Assessment/Plan clamp g tube likely start TF tomorrow LASHAUN IZQUIEDRO MD 04/23/18 1056: SURGICAL PROGRESS NOTE Assessment/Plan Patient sitting up, complains of being tired. Gtube in place. Start tube feeds tomorrow. Agree with Kinsey's assessment and plan. JANET ALCANTARA APRN Apr 23, 2018 09:00 LASHAUN IZQUIERDO MD Apr 23, 2018 10:56
[2018-04-23 11:00] VITALS: BP 133/71
[2018-04-23] MEDS: AMINO AC 3%/ELECTROLYTE/GLYCER 1,000 ML IV SCH (11:59)
--- NOTE | 2018-04-23 12:37 | NUR ---
SW following for discharge planning. Discussed with RN, pt is on TPN, MARKETING INTELLIGENCE ANALYST and IV abx. May try a tube feeding tomorrow. Pt's insurance accepted with [facility]. FRAN will continue to follow.
--- NOTE | 2018-04-23 12:56 | PDOC ---
PROGRESS NOTES Chief Complaint Chief Complaint aspriation, pneumonitis, possible pneumonia, on zosyn, ongoing cough dysphagia, failed swallow eval RECENT PEG tube placement and free intraperitoneal gas and fluid possible mild hydronephrosis and right hydroureter anemia HX esophageal ca new dx peritonitis severe malnutrition, POA History of Present Illness History of Present Illness GEN SURG following, july start PEG feeds in AM july DC purcell at DC per Uro Zosyn started for probably aspiration, pod # 4 surgical placement of PEG NPO, on PPN, consult nutrition PEG feeds soon Vitals Vitals Vital Signs Date Time Temp Pulse Resp B/P (MAP) Pulse Ox O2 Delivery O2 Flow Rate FiO2 04/23/18 11:00 97.7 98 18 133/71 (91) 92 Room Air 97.7 04/22/18 08:10 2.0 Physical Exam Physical Exam GENERAL: NAD, Alert HEENT: PERRL, OC/OP NECK: Supple, no JVD, no LN LUNGS: Clear HEART: S1S2, no gallop, no murmur ABD: Soft, NT, no organomegaly, no rebound EXT: No edema, no cyanosis 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 Labs Laboratory Tests Test 04/21/18 17:45 04/22/18 03:25 Hemoglobin 8.7 g/dL (12.0-15.5) 7.5 g/dL (12.0-15.5) Hematocrit 27.4 % (36.0-47.0) 23.5 % (36.0-47.0) Mean Corpuscular Hemoglobin Concent 32 g/dL (31-37) 32 g/dL (31-37) White Blood Count 12.3 x10^3/uL (4.0-11.0) Red Blood Count 3.43 x10^6/uL (3.50-5.40) Mean Corpuscular Volume 69 fL (79-100) Mean Corpuscular Hemoglobin 22 pg (25-35) Red Cell Distribution Width 30.6 % (11.5-14.5) Platelet Count 129 x10^3/uL (140-400) Neutrophils (%) (Auto) 92 % (31-73) Lymphocytes (%) (Auto) 4 % (24-48) Monocytes (%) (Auto) 4 % (0-9) Eosinophils (%) (Auto) 0 % (0-3) Basophils (%) (Auto) 0 % (0-3) Neutrophils # (Auto) 11.3 x10^3uL (1.8-7.7) Lymphocytes # (Auto) 0.5 x10^3/uL (1.0-4.8) Monocytes # (Auto) 0.5 x10^3/uL (0.0-1.1) Eosinophils # (Auto) 0.0 x10^3/uL (0.0-0.7) Basophils # (Auto) 0.0 x10^3/uL (0.0-0.2) Sodium Level 141 mmol/L (136-145) Potassium Level 3.9 mmol/L (3.5-5.1) Chloride Level 111 mmol/L (98-107) Carbon Dioxide Level 26 mmol/L (21-32) Anion Gap 4 (6-14) Blood Urea Nitrogen 26 mg/dL (7-20) Creatinine 0.8 mg/dL (0.6-1.0) Estimated GFR (Cockcroft-Gault) 71.3 BUN/Creatinine Ratio 33 (6-20) Glucose Level 126 mg/dL (70-99) Calcium Level 8.2 mg/dL (8.5-10.1) Total Bilirubin 0.7 mg/dL (0.2-1.0) Aspartate Amino Transf (AST/SGOT) 11 U/L (15-37) Alanine Aminotransferase (ALT/SGPT) 7 U/L (14-59) Alkaline Phosphatase 39 U/L (46-116) Total Protein 4.9 g/dL (6.4-8.2) Albumin 1.7 g/dL (3.4-5.0) Albumin/Globulin Ratio 0.5 (1.0-1.7) Microbiology 04/20/18 Blood Culture - Preliminary, Resulted NO GROWTH AFTER 2 DAYS Medications Current Medications Sodium Chloride 1,000 ml @ 100 mls/hr Q10H IV Last administered on 04/20/18at 18:17; Start 04/19/18 at 21:00; Stop 04/21/18 at 14:28; Status DC Morphine Sulfate (Morphine Sulfate) 2 mg PRN Q4HRS PRN IV SEVERE PAIN Last administered on 04/20/18at 10:04; Start 04/19/18 at 21:00; Stop 04/20/18 at 18:10 ; Status DC Ondansetron HCl (Zofran) 4 mg PRN Q6HRS PRN IV NAUSEA/VOMITING 1ST CHOICE Last administered on 04/20/18at 10:04; Start 04/19/18 at 21:00 Sodium Chloride 1,000 ml @ 1,000 mls/hr 1X ONCE IV Last administered on at 10:05; Start 04/20/18 at 08:15; Stop 04/20/18 at 09:14; Status DC Ceftriaxone Sodium (Rocephin) 1 gm Q24H IVP Last administered on 04/21/18at 07: 37; Start 04/20/18 at 09:00; Stop 04/21/18 at 18:05; Status DC Metronidazole 100 ml @ 100 mls/hr Q8HRS IV Last administered on 04/23/18at 05: 58; Start 04/20/18 at 14:00 Propofol 20 ml @ As Directed STK-MED ONCE IV ; Start 04/20/18 at 15:46; Stop at 15:48; Status DC Lidocaine HCl (Lidocaine Pf 2% Vial) 5 ml STK-MED ONCE .ROUTE ; Start 04/20/18 at 15:46; Stop 04/20/18 at 15:48; Status DC Dexamethasone Sodium Phosphate (Decadron) 20 mg STK-MED ONCE .ROUTE ; Start at 15:47; Stop 04/20/18 at 15:48; Status DC Ondansetron HCl (Zofran) 4 mg STK-MED ONCE .ROUTE ; Start 04/20/18 at 15:47; Stop 04/20/18 at 15:48; Status DC Rocuronium Ransom (Zemuron) 50 mg STK-MED ONCE .ROUTE ; Start 04/20/18 at 15:47 ; Stop 04/20/18 at 15:49; Status DC Fentanyl Citrate (Fentanyl 2ml Vial) 100 mcg STK-MED ONCE .ROUTE ; Start at 15:47; Stop 04/20/18 at 15:49; Status DC Bupivacaine HCl/ Epinephrine Bitart (Sensorcain-Mpf Epi 0.5%-1:[id number]) 30 ml STK -MED ONCE .ROUTE Last administered on 04/20/18at 17:02; Start 04/20/18 at 16:22 ; Stop 04/20/18 at 16:24; Status DC Sevoflurane (Ultane) 30 ml STK-MED ONCE IH ; Start 04/20/18 at 16:35; Stop 04/20 at 16:36; Status DC Succinylcholine Chloride (Anectine) 200 mg STK-MED ONCE .ROUTE ; Start 04/20/18 at 16:38; Stop 04/20/18 at 16:40; Status DC Glycopyrrolate (Robinul) 1 mg STK-MED ONCE .ROUTE ; Start 04/20/18 at 17:08; Stop 04/20/18 at 17:09; Status DC Neostigmine Methylsulfate (Bloxiverz) 10 mg STK-MED ONCE .ROUTE ; Start at 17:08; Stop 04/20/18 at 17:10; Status DC Sevoflurane (Ultane) 60 ml STK-MED ONCE IH ; Start 04/20/18 at 17:26; Stop 04/20 at 17:28; Status DC Enoxaparin Sodium (Lovenox 40mg Syringe) 40 mg Q24H SQ Last administered on at 08:28; Start 04/21/18 at 09:00 Sodium Chloride (Normal Saline Flush) 3 ml QSHIFT PRN IV AFTER MEDS AND BLOOD DRAWS; Start 04/20/18 at 18:15 Ringer's Solution 1,000 ml @ 100 mls/hr Q10H IV Last administered on at 06:00; Start 04/20/18 at 19:00; Stop 04/21/18 at 14:28; Status DC Morphine Sulfate 30 ml @ 0 mls/hr CONT PRN PRN IV PER PROTOCOL Last administered on 04/20/18at 19:03; Start 04/20/18 at 18:15 Docusate Sodium (Colace) 100 mg BID PO Last administered on 04/21/18at 07:36; Start 04/20/18 at 21:00; Stop 04/22/18 at 19:46; Status DC Ondansetron HCl (Zofran) 4 mg PRN Q6HRS PRN IV NAUESA, 1ST CHOICE; Start at 18:15; Status UNV Amino Acids/ Glycerin/ Electrolytes 1,000 ml @ 80 mls/hr [id number] IV Last administered on 04/23/18at 11:59; Start 04/20/18 at 21:00 Fentanyl Citrate (Fentanyl 2ml Vial) 100 mcg STK-MED ONCE .ROUTE ; Start at 18:52; Stop 04/20/18 at 18:54; Status DC Ondansetron HCl (Zofran) 4 mg PRN Q6HRS PRN IV NAUSEA/VOMITING; Start 04/20/18 at 19:00; Stop 04/20/18 at 23:59; Status DC Fentanyl Citrate (Fentanyl 2ml Vial) 25 mcg PRN Q5MIN PRN IV MILD PAIN Last administered on 04/20/18at 19:30; Start 04/20/18 at 19:00; Stop 04/20/18 at 23:59 ; Status DC Fentanyl Citrate (Fentanyl 2ml Vial) 50 mcg PRN Q5MIN PRN IV MODERATE TO SEVERE PAIN; Start 04/20/18 at 19:00; Stop 04/20/18 at 23:59; Status DC Morphine Sulfate (Morphine Sulfate) 1 mg PRN Q10MIN PRN IV SEVERE PAIN; Start 04/20/18 at 19:00; Stop 04/20/18 at 23:59; Status DC Ringer's Solution 1,000 ml @ 30 mls/hr Q24H IV ; Start 04/20/18 at 19:00; Stop 04/20/18 at 23:59; Status DC Lidocaine HCl (Xylocaine-Mpf 1% 2ml Vial) 2 ml PRN 1X PRN ID PRIOR TO IV START ; Start 04/20/18 at 19:00; Stop 04/20/18 at 23:59; Status DC Hydromorphone HCl (Dilaudid) 0.5 mg PRN Q10MIN PRN IV SEV PAIN, Second choice; Start 04/20/18 at 19:00; Stop 04/20/18 at 23:59; Status DC Prochlorperazine Edisylate (Compazine) 5 mg PACU PRN PRN IV NAUSEA, MRX1; Start 04/20/18 at 19:00; Stop 04/20/18 at 23:59; Status DC Acetaminophen (Tylenol) 650 mg 1X PRN PRN PO PRE-TRANSFUSION; Start 04/21/18 at 13:15 Sodium Chloride 1,000 ml @ 25 mls/hr Q24H PRN IV 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; Start 04/21/18 at 14:30; Stop 04/22/18 at 19:46; Status DC Piperacillin Sod/ Tazobactam Sod 3.375 gm/Sodium Chloride 50 ml @ 100 mls/hr Q6HRS IV Last administered on 04/23/18at 11:59; Start 04/21/18 at 18:30 Saliva Substitute (Biotene Moisturizing Mouth) 2 spray PRN Q15MIN PRN PO DRY MOUTH; Start 04/22/18 at 11:45 Bisacodyl (Dulcolax Supp) 10 mg PRN DAILY PRN [place] CONSTIPATION; Start 04/22/18 at 19:45 Active Scripts Active Reported Hydrocodone-Acetamn 7.5-325/15 (Hydrocodone/Acetaminophen) 15 Ml Solution 15 Ml PO Q4HRS Plaquenil (Hydroxychloroquine Sulfate) 200 Mg Tablet 200 Mg PO BID Sulindac 200 Mg Tablet 200 Mg PO BID Ibuprofen 600 Mg Tablet 600 Mg PO PRN Q6HRS PRN Vitals/I & O Vital Sign - Last 24 Hours 04/22/18 04/22/18 04/22/18 04/22/18 15:00 19:00 19:45 22:42 Temp 97.4 97.4 97.7 97.4 97.4 97.7 Pulse 100 111 109 Resp 18 B/P (MAP) 118/63 (81) 128/68 (88) 143/66 (91) Pulse Ox 93 92 96 O2 Delivery Room Air Room Air Room Air Room Air 04/23/18 04/23/18 04/23/18 04/23/18 02:37 07:00 07:36 11:00 Temp 97.7 97.7 97.7 97.7 Pulse 67 96 98 Resp 20 18 18 B/P (MAP) 127/80 (96) 133/67 (89) 133/71 (91) Pulse Ox 99 91 92 O2 Delivery Room Air Room Air Room Air Room Air Intake and Output 04/22/18 04/22/18 04/23/18 15:01 23:01 07:01 Intake Total 1920 ml Output Total 300 ml 550 ml 500 ml Balance -300 ml -550 ml 1420 ml Nutrition Consultation Dietary Evaluation: Recommendations by RD: Increase Calorie Intake, Protein supplementation, PPN/ TPN Expected Outcomes/Goals: to meet > 75% est nutr needs via tube feedings Interpretation of weight loss: >5% in 1 month Malnutrition Findings: Food and Nutrition Intake (Sev: <50% est energy req 5days Weight Status: Overweight AYAZ DALTON MD Apr 23, 2018 12:56
[2018-04-23] MEDS ORDERED: IPRATRPIUM/ALBUTEROL 0.5/2.5MG 3 ML NEBU. NEB ONE (13:00)
[2018-04-23] MEDS ORDERED: BUDESONIDE 0.5 MG/2 ML NEBU. NEB ONE (13:00)
[2018-04-23] MEDS: IPRATRPIUM/ALBUTEROL 0.5/2.5MG 3 ML NEBU. NEB SCH ×2 (14:05→19:33)
[2018-04-23 15:00] VITALS: BP 143/83
[2018-04-23 19:05] VITALS: BP 137/85
[2018-04-23] MEDS: BUDESONIDE 0.5 MG/2 ML NEBU. NEB SCH (19:45)
[2018-04-23 23:08] VITALS: BP 158/89
[2018-04-24] MEDS: PIPERACILLIN/TAZOBACTAM 3.375 GM in IV NORMAL SALINE 50ML 50 ML IV SCH ×5 (00:06→23:08)
[2018-04-24 03:10] VITALS: BP 123/70
[2018-04-24] MEDS: AMINO AC 3%/ELECTROLYTE/GLYCER 1,000 ML IV SCH ×2 (03:25→15:27)
[2018-04-24 05:41] LABS: ALBUMIN 1.7 g/dL (3.4-5.0); ALBUMIN/GLOBULIN RATIO 0.5 (1.0-1.7); BASO % 0 % (0-3); CALCIUM 8.4 mg/dL (8.5-10.1); CREATININE 0.7 mg/dL (0.6-1.0); EOS # 0.1 x10^3/uL (0.0-0.7); EOS % 1 % (0-3); GFR 83.2; HEMATOCRIT 24.5 % (36.0-47.0); HEMOGLOBIN 7.8 g/dL (12.0-15.5); LYMPH # 0.5 x10^3/uL (1.0-4.8); LYMPH % 5 % (24-48); MEAN CORPUSCULAR HEMOGLOBIN 22 pg (25-35); MEAN CORPUSCULAR HGB CONC 32 g/dL (31-37); MEAN CORPUSCULAR VOLUME 69 fL (79-100); MONO # 0.6 x10^3/uL (0.0-1.1); MONO % 6 % (0-9); NEUT % 88 % (31-73); RED BLOOD COUNT 3.58 x10^6/uL (3.50-5.40); RED CELL DISTRIBUTION WIDTH 31.6 % (11.5-14.5); TOTAL BILIRUBIN 0.5 mg/dL (0.2-1.0); WHITE BLOOD COUNT 11.3 x10^3/uL (4.0-11.0)
[2018-04-24 06:43] LABS: PLATELET COUNT 151 x10^3/uL (140-400)
[2018-04-24 07:00] VITALS: BP 145/77
[2018-04-24] MEDS: IPRATRPIUM/ALBUTEROL 0.5/2.5MG 3 ML NEBU. NEB SCH ×4 (07:26→20:00)
[2018-04-24] MEDS: BUDESONIDE 0.5 MG/2 ML NEBU. NEB SCH ×2 (07:26→20:00)
[2018-04-24] MEDS: ENOXAPARIN 40 MG/0.4 ML SYRINGE. SQ SCH (09:29)
--- NOTE | 2018-04-24 10:44 | NUR ---
SW following. Discussed with RN, RN advised no SW needs today. SW will continue to follow.
[2018-04-24 11:00] VITALS: BP 131/90
[2018-04-24] MEDS ORDERED: CODEINE SULFATE 30 MG TABLET. PO PRN (11:00)
[2018-04-24] MEDS ORDERED: guaiFENesin DM 200MG/20MG 10 ML SYRUP PO PRN (11:00)
--- NOTE | 2018-04-24 11:26 | PDOC ---
PROGRESS NOTES Chief Complaint Chief Complaint aspriation, pneumonitis, possible pneumonia, on zosyn, ongoing cough dysphagia, failed swallow eval RECENT PEG tube placement and free intraperitoneal gas and fluid possible mild hydronephrosis and right hydroureter anemia HX esophageal ca new dx peritonitis severe malnutrition, POA History of Present Illness History of Present Illness no event, cough better GEN SURG following, may start PEG feeds she feels better with breathing tx, pod # 5 surgical placement of PEG on PPN, consult nutrition following v Vitals Vitals Vital Signs Date Time Temp Pulse Resp B/P (MAP) Pulse Ox O2 Delivery O2 Flow Rate FiO2 04/24/18 11:16 Room Air 04/24/18 07:26 95 04/24/18 07:00 97.9 95 18 145/77 (99) 97.9 04/24/18 03:10 2.0 Physical Exam Physical Exam GENERAL: NAD, Alert HEENT: PERRL, OC/OP NECK: Supple, no JVD, no LN LUNGS: Clear HEART: S1S2, no gallop, no murmur ABD: Soft, NT, no organomegaly, no rebound EXT: No edema, no cyanosis CREDIT RISK SPECIALIST: Alert, 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, no focal neurologic deficit SKIN: No rash IV: ok General: Alert, Oriented X3, Cooperative, No acute distress Heart: Regular rate, Normal S1, Normal S2, No murmurs Lungs: Clear Abdomen: Soft, Other (gtube in place) Extremities: No clubbing, No cyanosis, No edema Skin: No rashes, No breakdown Labs LABS Laboratory Tests Test 04/24/18 04:15 White Blood Count 11.3 x10^3/uL (4.0-11.0) Red Blood Count 3.58 x10^6/uL (3.50-5.40) Hemoglobin 7.8 g/dL (12.0-15.5) Hematocrit 24.5 % (36.0-47.0) Mean Corpuscular Volume 69 fL (79-100) Mean Corpuscular Hemoglobin 22 pg (25-35) Mean Corpuscular Hemoglobin Concent 32 g/dL (31-37) Red Cell Distribution Width 31.6 % (11.5-14.5) Platelet Count 151 x10^3/uL (140-400) Neutrophils (%) (Auto) 88 % (31-73) Lymphocytes (%) (Auto) 5 % (24-48) Monocytes (%) (Auto) 6 % (0-9) Eosinophils (%) (Auto) 1 % (0-3) Basophils (%) (Auto) 0 % (0-3) Neutrophils # (Auto) 10.0 x10^3uL (1.8-7.7) Lymphocytes # (Auto) 0.5 x10^3/uL (1.0-4.8) Monocytes # (Auto) 0.6 x10^3/uL (0.0-1.1) Eosinophils # (Auto) 0.1 x10^3/uL (0.0-0.7) Basophils # (Auto) 0.0 x10^3/uL (0.0-0.2) Sodium Level 143 mmol/L (136-145) Potassium Level 4.0 mmol/L (3.5-5.1) Chloride Level 112 mmol/L (98-107) Carbon Dioxide Level 25 mmol/L (21-32) Anion Gap 6 (6-14) Blood Urea Nitrogen 23 mg/dL (7-20) Creatinine 0.7 mg/dL (0.6-1.0) Estimated GFR (Cockcroft-Gault) 83.2 BUN/Creatinine Ratio 33 (6-20) Glucose Level 111 mg/dL (70-99) Calcium Level 8.4 mg/dL (8.5-10.1) Total Bilirubin 0.5 mg/dL (0.2-1.0) Aspartate Amino Transf (AST/SGOT) 18 U/L (15-37) Alanine Aminotransferase (ALT/SGPT) 9 U/L (14-59) Alkaline Phosphatase 38 U/L (46-116) Total Protein 5.0 g/dL (6.4-8.2) Albumin 1.7 g/dL (3.4-5.0) Albumin/Globulin Ratio 0.5 (1.0-1.7) Review of Systems Review of Systems cough better still weakness Comment Review of Relevant I have reviewed the following items herbie (where applicable) has been applied. Labs Laboratory Tests Test 04/24/18 04:15 White Blood Count 11.3 x10^3/uL (4.0-11.0) Red Blood Count 3.58 x10^6/uL (3.50-5.40) Hemoglobin 7.8 g/dL (12.0-15.5) Hematocrit 24.5 % (36.0-47.0) Mean Corpuscular Volume 69 fL (79-100) Mean Corpuscular Hemoglobin 22 pg (25-35) Mean Corpuscular Hemoglobin Concent 32 g/dL (31-37) Red Cell Distribution Width 31.6 % (11.5-14.5) Platelet Count 151 x10^3/uL (140-400) Neutrophils (%) (Auto) 88 % (31-73) Lymphocytes (%) (Auto) 5 % (24-48) Monocytes (%) (Auto) 6 % (0-9) Eosinophils (%) (Auto) 1 % (0-3) Basophils (%) (Auto) 0 % (0-3) Neutrophils # (Auto) 10.0 x10^3uL (1.8-7.7) Lymphocytes # (Auto) 0.5 x10^3/uL (1.0-4.8) Monocytes # (Auto) 0.6 x10^3/uL (0.0-1.1) Eosinophils # (Auto) 0.1 x10^3/uL (0.0-0.7) Basophils # (Auto) 0.0 x10^3/uL (0.0-0.2) Sodium Level 143 mmol/L (136-145) Potassium Level 4.0 mmol/L (3.5-5.1) Chloride Level 112 mmol/L (98-107) Carbon Dioxide Level 25 mmol/L (21-32) Anion Gap 6 (6-14) Blood Urea Nitrogen 23 mg/dL (7-20) Creatinine 0.7 mg/dL (0.6-1.0) Estimated GFR (Cockcroft-Gault) 83.2 BUN/Creatinine Ratio 33 (6-20) Glucose Level 111 mg/dL (70-99) Calcium Level 8.4 mg/dL (8.5-10.1) Total Bilirubin 0.5 mg/dL (0.2-1.0) Aspartate Amino Transf (AST/SGOT) 18 U/L (15-37) Alanine Aminotransferase (ALT/SGPT) 9 U/L (14-59) Alkaline Phosphatase 38 U/L (46-116) Total Protein 5.0 g/dL (6.4-8.2) Albumin 1.7 g/dL (3.4-5.0) Albumin/Globulin Ratio 0.5 (1.0-1.7) Laboratory Tests Test 04/24/18 04:15 White Blood Count 11.3 x10^3/uL (4.0-11.0) Red Blood Count 3.58 x10^6/uL (3.50-5.40) Hemoglobin 7.8 g/dL (12.0-15.5) Hematocrit 24.5 % (36.0-47.0) Mean Corpuscular Volume 69 fL (79-100) Mean Corpuscular Hemoglobin 22 pg (25-35) Mean Corpuscular Hemoglobin Concent 32 g/dL (31-37) Red Cell Distribution Width 31.6 % (11.5-14.5) Platelet Count 151 x10^3/uL (140-400) Neutrophils (%) (Auto) 88 % (31-73) Lymphocytes (%) (Auto) 5 % (24-48) Monocytes (%) (Auto) 6 % (0-9) Eosinophils (%) (Auto) 1 % (0-3) Basophils (%) (Auto) 0 % (0-3) Neutrophils # (Auto) 10.0 x10^3uL (1.8-7.7) Lymphocytes # (Auto) 0.5 x10^3/uL (1.0-4.8) Monocytes # (Auto) 0.6 x10^3/uL (0.0-1.1) Eosinophils # (Auto) 0.1 x10^3/uL (0.0-0.7) Basophils # (Auto) 0.0 x10^3/uL (0.0-0.2) Sodium Level 143 mmol/L (136-145) Potassium Level 4.0 mmol/L (3.5-5.1) Chloride Level 112 mmol/L (98-107) Carbon Dioxide Level 25 mmol/L (21-32) Anion Gap 6 (6-14) Blood Urea Nitrogen 23 mg/dL (7-20) Creatinine 0.7 mg/dL (0.6-1.0) Estimated GFR (Cockcroft-Gault) 83.2 BUN/Creatinine Ratio 33 (6-20) Glucose Level 111 mg/dL (70-99) Calcium Level 8.4 mg/dL (8.5-10.1) Total Bilirubin 0.5 mg/dL (0.2-1.0) Aspartate Amino Transf (AST/SGOT) 18 U/L (15-37) Alanine Aminotransferase (ALT/SGPT) 9 U/L (14-59) Alkaline Phosphatase 38 U/L (46-116) Total Protein 5.0 g/dL (6.4-8.2) Albumin 1.7 g/dL (3.4-5.0) Albumin/Globulin Ratio 0.5 (1.0-1.7) Microbiology 04/20/18 Blood Culture - Preliminary, Resulted NO GROWTH AFTER 3 DAYS Medications Current Medications Sodium Chloride 1,000 ml @ 100 mls/hr Q10H IV Last administered on 04/20/18at 18:17; Start 04/19/18 at 21:00; Stop 04/21/18 at 14:28; Status DC Morphine Sulfate (Morphine Sulfate) 2 mg PRN Q4HRS PRN IV SEVERE PAIN Last administered on 04/20/18at 10:04; Start 04/19/18 at 21:00; Stop 04/20/18 at 18:10 ; Status DC Ondansetron HCl (Zofran) 4 mg PRN Q6HRS PRN IV NAUSEA/VOMITING 1ST CHOICE Last administered on 04/20/18at 10:04; Start 04/19/18 at 21:00 Sodium Chloride 1,000 ml @ 1,000 mls/hr 1X ONCE IV Last administered on at 10:05; Start 04/20/18 at 08:15; Stop 04/20/18 at 09:14; Status DC Ceftriaxone Sodium (Rocephin) 1 gm Q24H IVP Last administered on 04/21/18at 07: 37; Start 04/20/18 at 09:00; Stop 04/21/18 at 18:05; Status DC Metronidazole 100 ml @ 100 mls/hr Q8HRS IV Last administered on 04/23/18at 13: 18; Start 04/20/18 at 14:00; Stop 04/23/18 at 16:46; Status DC Propofol 20 ml @ As Directed STK-MED ONCE IV ; Start 04/20/18 at 15:46; Stop at 15:48; Status DC Lidocaine HCl (Lidocaine Pf 2% Vial) 5 ml STK-MED ONCE .ROUTE ; Start 04/20/18 at 15:46; Stop 04/20/18 at 15:48; Status DC Dexamethasone Sodium Phosphate (Decadron) 20 mg STK-MED ONCE .ROUTE ; Start at 15:47; Stop 04/20/18 at 15:48; Status DC Ondansetron HCl (Zofran) 4 mg STK-MED ONCE .ROUTE ; Start 04/20/18 at 15:47; Stop 04/20/18 at 15:48; Status DC Rocuronium Eucha (Zemuron) 50 mg STK-MED ONCE .ROUTE ; Start 04/20/18 at 15:47 ; Stop 04/20/18 at 15:49; Status DC Fentanyl Citrate (Fentanyl 2ml Vial) 100 mcg STK-MED ONCE .ROUTE ; Start at 15:47; Stop 04/20/18 at 15:49; Status DC Bupivacaine HCl/ Epinephrine Bitart (Sensorcain-Mpf Epi 0.5%-1:[id number]) 30 ml STK -MED ONCE .ROUTE Last administered on 04/20/18at 17:02; Start 04/20/18 at 16:22 ; Stop 04/20/18 at 16:24; Status DC Sevoflurane (Ultane) 30 ml STK-MED ONCE IH ; Start 04/20/18 at 16:35; Stop 04/20 at 16:36; Status DC Succinylcholine Chloride (Anectine) 200 mg STK-MED ONCE .ROUTE ; Start 04/20/18 at 16:38; Stop 04/20/18 at 16:40; Status DC Glycopyrrolate (Robinul) 1 mg STK-MED ONCE .ROUTE ; Start 04/20/18 at 17:08; Stop 04/20/18 at 17:09; Status DC Neostigmine Methylsulfate (Bloxiverz) 10 mg STK-MED ONCE .ROUTE ; Start at 17:08; Stop 04/20/18 at 17:10; Status DC Sevoflurane (Ultane) 60 ml STK-MED ONCE IH ; Start 04/20/18 at 17:26; Stop 04/20 at 17:28; Status DC Enoxaparin Sodium (Lovenox 40mg Syringe) 40 mg Q24H SQ Last administered on at 09:29; Start 04/21/18 at 09:00 Sodium Chloride (Normal Saline Flush) 3 ml QSHIFT PRN IV AFTER MEDS AND BLOOD DRAWS; Start 04/20/18 at 18:15 Ringer's Solution 1,000 ml @ 100 mls/hr Q10H IV Last administered on at 06:00; Start 04/20/18 at 19:00; Stop 04/21/18 at 14:28; Status DC Morphine Sulfate 30 ml @ 0 mls/hr CONT PRN PRN IV PER PROTOCOL Last administered on 04/20/18at 19:03; Start 04/20/18 at 18:15 Docusate Sodium (Colace) 100 mg BID PO Last administered on 04/21/18at 07:36; Start 04/20/18 at 21:00; Stop 04/22/18 at 19:46; Status DC Ondansetron HCl (Zofran) 4 mg PRN Q6HRS PRN IV NAUESA, 1ST CHOICE; Start at 18:15; Status UNV Amino Acids/ Glycerin/ Electrolytes 1,000 ml @ 80 mls/hr [id number] IV Last administered on 04/24/18at 03:25; Start 04/20/18 at 21:00 Fentanyl Citrate (Fentanyl 2ml Vial) 100 mcg STK-MED ONCE .ROUTE ; Start at 18:52; Stop 04/20/18 at 18:54; Status DC Ondansetron HCl (Zofran) 4 mg PRN Q6HRS PRN IV NAUSEA/VOMITING; Start 04/20/18 at 19:00; Stop 04/20/18 at 23:59; Status DC Fentanyl Citrate (Fentanyl 2ml Vial) 25 mcg PRN Q5MIN PRN IV MILD PAIN Last administered on 04/20/18at 19:30; Start 04/20/18 at 19:00; Stop 04/20/18 at 23:59 ; Status DC Fentanyl Citrate (Fentanyl 2ml Vial) 50 mcg PRN Q5MIN PRN IV MODERATE TO SEVERE PAIN; Start 04/20/18 at 19:00; Stop 04/20/18 at 23:59; Status DC Morphine Sulfate (Morphine Sulfate) 1 mg PRN Q10MIN PRN IV SEVERE PAIN; Start 04/20/18 at 19:00; Stop 04/20/18 at 23:59; Status DC Ringer's Solution 1,000 ml @ 30 mls/hr Q24H IV ; Start 04/20/18 at 19:00; Stop 04/20/18 at 23:59; Status DC Lidocaine HCl (Xylocaine-Mpf 1% 2ml Vial) 2 ml PRN 1X PRN ID PRIOR TO IV START ; Start 04/20/18 at 19:00; Stop 04/20/18 at 23:59; Status DC Hydromorphone HCl (Dilaudid) 0.5 mg PRN Q10MIN PRN IV SEV PAIN, Second choice; Start 04/20/18 at 19:00; Stop 04/20/18 at 23:59; Status DC Prochlorperazine Edisylate (Compazine) 5 mg PACU PRN PRN IV NAUSEA, MRX1; Start 04/20/18 at 19:00; Stop 04/20/18 at 23:59; Status DC Acetaminophen (Tylenol) 650 mg 1X PRN PRN PO PRE-TRANSFUSION; Start 04/21/18 at 13:15 Sodium Chloride 1,000 ml @ 25 mls/hr Q24H PRN IV 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 carrier; Start 04/21/18 at 14:30; Stop 04/22/18 at 19:46; Status DC Piperacillin Sod/ Tazobactam Sod 3.375 gm/Sodium Chloride 50 ml @ 100 mls/hr Q6HRS IV Last administered on 04/24/18at 06:30; Start 04/21/18 at 18:30 Saliva Substitute (Biotene Moisturizing Mouth) 2 spray PRN Q15MIN PRN PO DRY MOUTH; Start 04/22/18 at 11:45 Bisacodyl (Dulcolax Supp) 10 mg PRN DAILY PRN [place] CONSTIPATION; Start 04/22/18 at 19:45 Albuterol/ Ipratropium (Duoneb) 3 ml 1X ONCE NEB Last administered on at 13:00; Start 04/23/18 at 13:00; Stop 04/23/18 at 13:01; Status DC Albuterol/ Ipratropium (Duoneb) 3 ml RTQID NEB Last administered on 04/24/18at 11:16; Start 04/23/18 at 16:00 Budesonide (Pulmicort) 0.5 mg RTBID NEB Last administered on 04/24/18at 07:26; Start 04/23/18 at 20:00 Budesonide (Pulmicort) 0.5 mg 1X ONCE NEB ; Start 04/23/18 at 13:00; Stop 04/23 at 13:01; Status DC Guaifenesin (Robitussin Dm) 10 ml PRN Q6HRS PRN PO COUGH 1ST CHOICE; Start at 11:00 Codeine Sulfate (Codeine) 30 mg PRN Q6HRS PRN PO cough 2ND CHOICE; Start at 11:00 Active Scripts Active Reported Hydrocodone-Acetamn 7.5-325/15 (Hydrocodone/Acetaminophen) 15 Ml Solution 15 Ml PO Q4HRS Plaquenil (Hydroxychloroquine Sulfate) 200 Mg Tablet 200 Mg PO BID Sulindac 200 Mg Tablet 200 Mg PO BID Ibuprofen 600 Mg Tablet 600 Mg PO PRN Q6HRS PRN Vitals/I & O Vital Sign - Last 24 Hours 04/23/18 04/23/18 04/23/18 04/23/18 14:07 15:00 19:05 19:53 Temp 97.3 98.5 97.3 98.5 Pulse 108 103 Resp 18 20 B/P (MAP) 143/83 (103) 137/85 (102) Pulse Ox 96 95 96 100 O2 Delivery Room Air Room Air Nasal Cannula Room Air O2 Flow Rate 2.0 04/23/18 04/23/18 04/24/18 04/24/18 20:00 23:08 03:10 07:00 Temp 97.8 97.6 97.9 97.8 97.6 97.9 Pulse 103 86 95 Resp 24 24 18 B/P (MAP) 158/89 (112) 123/70 (87) 145/77 (99) Pulse Ox 95 97 98 O2 Delivery Room Air Nasal Cannula Nasal Cannula Room Air O2 Flow Rate 2.0 2.0 2.0 04/24/18 04/24/18 04/24/18 07:26 07:45 11:16 Pulse Ox 95 O2 Delivery Room Air Room Air Room Air Intake and Output 04/23/18 04/23/18 04/24/18 15:01 23:01 07:01 Intake Total 1920 ml Output Total 400 ml 375 ml Balance -400 ml 1545 ml Nutrition Consultation Dietary Evaluation: Recommendations by RD: Increase Calorie Intake, Protein supplementation, PPN/ TPN Expected Outcomes/Goals: to meet > 75% est nutr needs via tube feedings Interpretation of weight loss: >5% in 1 month Malnutrition Findings: Food and Nutrition Intake (Sev: <50% est energy req 5days Weight Status: Overweight AYAZ DALTON MD Apr 24, 2018 11:26
--- NOTE | 2018-04-24 14:46 | NUR ---
Equipment Driver contacted by phone this morning, around 1130, regarding new orders to start Tube Feedings. This nurse has not heard from Equipment Driver as of the time this note is typed. Dr Figueredo notified, he entered orders for Jevity 1.2. Tube feedings to be started as soon as formula is delivered from dietary.
[2018-04-24 15:00] VITALS: BP 140/74
--- NOTE | 2018-04-24 16:30 | NUR ---
Pt has not used STREET INSPECTOR at all today, this nurse asked Pt if she would like to have STREET INSPECTOR discontinue and use PRN pain medication instead. Pt stated "maybe I can try tomorrow." Also, Contreras catheter has been in place since 04/21, this nurse spoke with Pt regarding risks associated with leaving a Contreras in for longer than needed, Pt verbalized understanding but she asked for one more day to be mentally prepared. Dr Figueredo notified. Per Dr Ghosh's note, Contreras can be discontinued at discharge.
[2018-04-24 19:00] VITALS: BP 127/61
[2018-04-24 23:00] VITALS: BP 124/55
[2018-04-25 03:00] VITALS: BP 137/61
[2018-04-25] MEDS: AMINO AC 3%/ELECTROLYTE/GLYCER 1,000 ML IV SCH ×2 (06:18→13:30)
[2018-04-25] MEDS: PIPERACILLIN/TAZOBACTAM 3.375 GM in IV NORMAL SALINE 50ML 50 ML IV SCH ×3 (06:19→18:01)
--- NOTE | 2018-04-25 06:22 | NUR ---
Pt has not used LAW EXAMINER at all this shift. Pt has denied pain all this shift. Pt still plans to try to DC LAW EXAMINER today. This nurse will pass on to day shift RN
[2018-04-25 07:00] VITALS: BP 144/78
--- NOTE | 2018-04-25 08:00 | NUR ---
TF increased from 30 to 40 ml/hr, no residual.
--- NOTE | 2018-04-25 08:33 | PDOC ---
JANET ALCANTARA WASH CREW PERSON 04/25/18 0833: SURGICAL PROGRESS NOTE Subjective loose stool today tolerating TF Vital Signs Vital Signs Date Time Temp Pulse Resp B/P (MAP) Pulse Ox O2 Delivery O2 Flow Rate FiO2 04/25/18 03:00 97.5 71 18 137/61 (86) 95 Room Air 97.5 I&O Intake and Output 04/25/18 07:01 Intake Total 0 ml Output Total 350 ml Balance -350 ml Intake Oral 0 ml Output Urine Total 350 ml General: Alert, Oriented X3, Cooperative, No acute distress Abdomen: Soft, Other (ND, g tube in place) Labs Laboratory Tests Test 04/24/18 04:15 White Blood Count 11.3 x10^3/uL (4.0-11.0) Red Blood Count 3.58 x10^6/uL (3.50-5.40) Hemoglobin 7.8 g/dL (12.0-15.5) Hematocrit 24.5 % (36.0-47.0) Mean Corpuscular Volume 69 fL (79-100) Mean Corpuscular Hemoglobin 22 pg (25-35) Mean Corpuscular Hemoglobin Concent 32 g/dL (31-37) Red Cell Distribution Width 31.6 % (11.5-14.5) Platelet Count 151 x10^3/uL (140-400) Neutrophils (%) (Auto) 88 % (31-73) Lymphocytes (%) (Auto) 5 % (24-48) Monocytes (%) (Auto) 6 % (0-9) Eosinophils (%) (Auto) 1 % (0-3) Basophils (%) (Auto) 0 % (0-3) Neutrophils # (Auto) 10.0 x10^3uL (1.8-7.7) Lymphocytes # (Auto) 0.5 x10^3/uL (1.0-4.8) Monocytes # (Auto) 0.6 x10^3/uL (0.0-1.1) Eosinophils # (Auto) 0.1 x10^3/uL (0.0-0.7) Basophils # (Auto) 0.0 x10^3/uL (0.0-0.2) Sodium Level 143 mmol/L (136-145) Potassium Level 4.0 mmol/L (3.5-5.1) Chloride Level 112 mmol/L (98-107) Carbon Dioxide Level 25 mmol/L (21-32) Anion Gap 6 (6-14) Blood Urea Nitrogen 23 mg/dL (7-20) Creatinine 0.7 mg/dL (0.6-1.0) Estimated GFR (Cockcroft-Gault) 83.2 BUN/Creatinine Ratio 33 (6-20) Glucose Level 111 mg/dL (70-99) Calcium Level 8.4 mg/dL (8.5-10.1) Total Bilirubin 0.5 mg/dL (0.2-1.0) Aspartate Amino Transf (AST/SGOT) 18 U/L (15-37) Alanine Aminotransferase (ALT/SGPT) 9 U/L (14-59) Alkaline Phosphatase 38 U/L (46-116) Total Protein 5.0 g/dL (6.4-8.2) Albumin 1.7 g/dL (3.4-5.0) Albumin/Globulin Ratio 0.5 (1.0-1.7) Assessment/Plan continue TFs LASHAUN IZQUIERDO MD 04/25/18 0915: SURGICAL PROGRESS NOTE Assessment/Plan Agree with Mandi assessment and plan JANET ALCANTARA APRN Apr 25, 2018 08:33 LASHAUN IZQUIERDO MD Apr 25, 2018 09:15
[2018-04-25] MEDS: IPRATRPIUM/ALBUTEROL 0.5/2.5MG 3 ML NEBU. NEB SCH ×4 (08:52→19:57)
[2018-04-25] MEDS: BUDESONIDE 0.5 MG/2 ML NEBU. NEB SCH ×2 (08:52→19:57)
[2018-04-25] MEDS: ENOXAPARIN 40 MG/0.4 ML SYRINGE. SQ SCH (08:53)
[2018-04-25 11:00] VITALS: BP 125/69
--- NOTE | 2018-04-25 12:37 | PDOC ---
PROGRESS NOTES Chief Complaint Chief Complaint aspriation pneumonitis, pneumonia, on zosyn, ongoing cough dysphagia, failed swallow eval RECENT PEG tube placement and free intraperitoneal gas and fluid possible mild hydronephrosis and right hydroureter anemia HX esophageal ca new dx peritonitis severe malnutrition, POA History of Present Illness History of Present Illness str. better cough is limited advancing tube feeds, still weak, will need SNU she feels better with breathing tx, pod # 6 surgical placement of PEG still on PPN, Tube feeds not at goal, consult nutrition following v Vitals Vitals Vital Signs Date Time Temp Pulse Resp B/P (MAP) Pulse Ox O2 Delivery O2 Flow Rate FiO2 04/25/18 11:32 Room Air 04/25/18 11:00 98.1 94 18 125/69 (87) 96 98.1 Physical Exam Physical Exam GENERAL: NAD, Alert HEENT: PERRL, OC/OP NECK: Supple, no JVD, no LN LUNGS: Clear HEART: S1S2, no gallop, no murmur ABD: Soft, NT, no organomegaly, no rebound EXT: No edema, no cyanosis PAPER SORTER: Alert, 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, no focal neurologic deficit SKIN: No rash IV: ok General: Alert, Oriented X3, Cooperative, No acute distress Heart: Regular rate, Normal S1, Normal S2, No murmurs Lungs: Clear Abdomen: Soft, Other (ND, g tube in place) Extremities: No clubbing, No cyanosis, No edema Skin: No rashes, No breakdown Review of Systems Review of Systems weakness cough, no nausea Comment Review of Relevant I have reviewed the following items herbie (where applicable) has been applied. Labs Laboratory Tests Test 04/24/18 04:15 White Blood Count 11.3 x10^3/uL (4.0-11.0) Red Blood Count 3.58 x10^6/uL (3.50-5.40) Hemoglobin 7.8 g/dL (12.0-15.5) Hematocrit 24.5 % (36.0-47.0) Mean Corpuscular Volume 69 fL (79-100) Mean Corpuscular Hemoglobin 22 pg (25-35) Mean Corpuscular Hemoglobin Concent 32 g/dL (31-37) Red Cell Distribution Width 31.6 % (11.5-14.5) Platelet Count 151 x10^3/uL (140-400) Neutrophils (%) (Auto) 88 % (31-73) Lymphocytes (%) (Auto) 5 % (24-48) Monocytes (%) (Auto) 6 % (0-9) Eosinophils (%) (Auto) 1 % (0-3) Basophils (%) (Auto) 0 % (0-3) Neutrophils # (Auto) 10.0 x10^3uL (1.8-7.7) Lymphocytes # (Auto) 0.5 x10^3/uL (1.0-4.8) Monocytes # (Auto) 0.6 x10^3/uL (0.0-1.1) Eosinophils # (Auto) 0.1 x10^3/uL (0.0-0.7) Basophils # (Auto) 0.0 x10^3/uL (0.0-0.2) Sodium Level 143 mmol/L (136-145) Potassium Level 4.0 mmol/L (3.5-5.1) Chloride Level 112 mmol/L (98-107) Carbon Dioxide Level 25 mmol/L (21-32) Anion Gap 6 (6-14) Blood Urea Nitrogen 23 mg/dL (7-20) Creatinine 0.7 mg/dL (0.6-1.0) Estimated GFR (Cockcroft-Gault) 83.2 BUN/Creatinine Ratio 33 (6-20) Glucose Level 111 mg/dL (70-99) Calcium Level 8.4 mg/dL (8.5-10.1) Total Bilirubin 0.5 mg/dL (0.2-1.0) Aspartate Amino Transf (AST/SGOT) 18 U/L (15-37) Alanine Aminotransferase (ALT/SGPT) 9 U/L (14-59) Alkaline Phosphatase 38 U/L (46-116) Total Protein 5.0 g/dL (6.4-8.2) Albumin 1.7 g/dL (3.4-5.0) Albumin/Globulin Ratio 0.5 (1.0-1.7) Microbiology 04/20/18 Blood Culture - Preliminary, Resulted NO GROWTH AFTER 4 DAYS Medications Current Medications Sodium Chloride 1,000 ml @ 100 mls/hr Q10H IV Last administered on 04/20/18at 18:17; Start 04/19/18 at 21:00; Stop 04/21/18 at 14:28; Status DC Morphine Sulfate (Morphine Sulfate) 2 mg PRN Q4HRS PRN IV SEVERE PAIN Last administered on 04/20/18at 10:04; Start 04/19/18 at 21:00; Stop 04/20/18 at 18:10 ; Status DC Ondansetron HCl (Zofran) 4 mg PRN Q6HRS PRN IV NAUSEA/VOMITING 1ST CHOICE Last administered on 04/20/18at 10:04; Start 04/19/18 at 21:00 Sodium Chloride 1,000 ml @ 1,000 mls/hr 1X ONCE IV Last administered on at 10:05; Start 04/20/18 at 08:15; Stop 04/20/18 at 09:14; Status DC Ceftriaxone Sodium (Rocephin) 1 gm Q24H IVP Last administered on 04/21/18at 07: 37; Start 04/20/18 at 09:00; Stop 04/21/18 at 18:05; Status DC Metronidazole 100 ml @ 100 mls/hr Q8HRS IV Last administered on 04/23/18at 13: 18; Start 04/20/18 at 14:00; Stop 04/23/18 at 16:46; Status DC Propofol 20 ml @ As Directed STK-MED ONCE IV ; Start 04/20/18 at 15:46; Stop at 15:48; Status DC Lidocaine HCl (Lidocaine Pf 2% Vial) 5 ml STK-MED ONCE .ROUTE ; Start 04/20/18 at 15:46; Stop 04/20/18 at 15:48; Status DC Dexamethasone Sodium Phosphate (Decadron) 20 mg STK-MED ONCE .ROUTE ; Start at 15:47; Stop 04/20/18 at 15:48; Status DC Ondansetron HCl (Zofran) 4 mg STK-MED ONCE .ROUTE ; Start 04/20/18 at 15:47; Stop 04/20/18 at 15:48; Status DC Rocuronium [place] (Zemuron) 50 mg STK-MED ONCE .ROUTE ; Start 04/20/18 at 15:47 ; Stop 04/20/18 at 15:49; Status DC Fentanyl Citrate (Fentanyl 2ml Vial) 100 mcg STK-MED ONCE .ROUTE ; Start at 15:47; Stop 04/20/18 at 15:49; Status DC Bupivacaine HCl/ Epinephrine Bitart (Sensorcain-Mpf Epi 0.5%-[id number]) 30 ml STK -MED ONCE .ROUTE Last administered on 04/20/18at 17:02; Start 04/20/18 at 16:22 ; Stop 04/20/18 at 16:24; Status DC Sevoflurane (Ultane) 30 ml STK-MED ONCE IH ; Start 04/20/18 at 16:35; Stop 04/20 at 16:36; Status DC Succinylcholine Chloride (Anectine) 200 mg STK-MED ONCE .ROUTE ; Start 04/20/18 at 16:38; Stop 04/20/18 at 16:40; Status DC Glycopyrrolate (Robinul) 1 mg STK-MED ONCE .ROUTE ; Start 04/20/18 at 17:08; Stop 04/20/18 at 17:09; Status DC Neostigmine Methylsulfate (Bloxiverz) 10 mg STK-MED ONCE .ROUTE ; Start at 17:08; Stop 04/20/18 at 17:10; Status DC Sevoflurane (Ultane) 60 ml STK-MED ONCE IH ; Start 04/20/18 at 17:26; Stop 04/20 at 17:28; Status DC Enoxaparin Sodium (Lovenox 40mg Syringe) 40 mg Q24H SQ Last administered on at 08:53; Start 04/21/18 at 09:00 Sodium Chloride (Normal Saline Flush) 3 ml QSHIFT PRN IV AFTER MEDS AND BLOOD DRAWS; Start 04/20/18 at 18:15 Ringer's Solution 1,000 ml @ 100 mls/hr Q10H IV Last administered on at 06:00; Start 04/20/18 at 19:00; Stop 04/21/18 at 14:28; Status DC Morphine Sulfate 30 ml @ 0 mls/hr CONT PRN PRN IV PER PROTOCOL Last administered on 04/20/18at 19:03; Start 04/20/18 at 18:15; Stop 04/25/18 at 10:19 ; Status DC Docusate Sodium (Colace) 100 mg BID PO Last administered on 04/21/18at 07:36; Start 04/20/18 at 21:00; Stop 04/22/18 at 19:46; Status DC Ondansetron HCl (Zofran) 4 mg PRN Q6HRS PRN IV NAUESA, 1ST CHOICE; Start at 18:15; Status UNV Amino Acids/ Glycerin/ Electrolytes 1,000 ml @ 80 mls/hr [id number] IV Last administered on 04/25/18at 06:18; Start 04/20/18 at 21:00 Fentanyl Citrate (Fentanyl 2ml Vial) 100 mcg STK-MED ONCE .ROUTE ; Start at 18:52; Stop 04/20/18 at 18:54; Status DC Ondansetron HCl (Zofran) 4 mg PRN Q6HRS PRN IV NAUSEA/VOMITING; Start 04/20/18 at 19:00; Stop 04/20/18 at 23:59; Status DC Fentanyl Citrate (Fentanyl 2ml Vial) 25 mcg PRN Q5MIN PRN IV MILD PAIN Last administered on 04/20/18at 19:30; Start 04/20/18 at 19:00; Stop 04/20/18 at 23:59 ; Status DC Fentanyl Citrate (Fentanyl 2ml Vial) 50 mcg PRN Q5MIN PRN IV MODERATE TO SEVERE PAIN; Start 04/20/18 at 19:00; Stop 04/20/18 at 23:59; Status DC Morphine Sulfate (Morphine Sulfate) 1 mg PRN Q10MIN PRN IV SEVERE PAIN; Start 04/20/18 at 19:00; Stop 04/20/18 at 23:59; Status DC Ringer's Solution 1,000 ml @ 30 mls/hr Q24H IV ; Start 04/20/18 at 19:00; Stop 04/20/18 at 23:59; Status DC Lidocaine HCl (Xylocaine-Mpf 1% 2ml Vial) 2 ml PRN 1X PRN ID PRIOR TO IV START ; Start 04/20/18 at 19:00; Stop 04/20/18 at 23:59; Status DC Hydromorphone HCl (Dilaudid) 0.5 mg PRN Q10MIN PRN IV SEV PAIN, Second choice; Start 04/20/18 at 19:00; Stop 04/20/18 at 23:59; Status DC Prochlorperazine Edisylate (Compazine) 5 mg PACU PRN PRN IV NAUSEA, MRX1; Start 04/20/18 at 19:00; Stop 04/20/18 at 23:59; Status DC Acetaminophen (Tylenol) 650 mg 1X PRN PRN PO PRE-TRANSFUSION; Start 04/21/18 at 13:15 Sodium Chloride 1,000 ml @ 25 mls/hr Q24H PRN IV CAREER ADVISOR carrier; Start 04/21/18 at 14:30; Stop 04/22/18 at 19:46; Status DC Piperacillin Sod/ Tazobactam Sod 3.375 gm/Sodium Chloride 50 ml @ 100 mls/hr Q6HRS IV Last administered on 04/25/18at 12:12; Start 04/21/18 at 18:30 Saliva Substitute (Biotene Moisturizing Mouth) 2 spray PRN Q15MIN PRN PO DRY MOUTH; Start 04/22/18 at 11:45 Bisacodyl (Dulcolax Supp) 10 mg PRN DAILY PRN OK CONSTIPATION; Start 04/22/18 at 19:45 Albuterol/ Ipratropium (Duoneb) 3 ml 1X ONCE NEB Last administered on at 13:00; Start 04/23/18 at 13:00; Stop 04/23/18 at 13:01; Status DC Albuterol/ Ipratropium (Duoneb) 3 ml RTQID NEB Last administered on 04/25/18at 11:31; Start 04/23/18 at 16:00 Budesonide (Pulmicort) 0.5 mg RTBID NEB Last administered on 04/25/18at 08:52; Start 04/23/18 at 20:00 Budesonide (Pulmicort) 0.5 mg 1X ONCE NEB ; Start 04/23/18 at 13:00; Stop 04/23 at 13:01; Status DC Guaifenesin (Robitussin Dm) 10 ml PRN Q6HRS PRN PO COUGH 1ST CHOICE; Start at 11:00 Codeine Sulfate (Codeine) 30 mg PRN Q6HRS PRN PO cough 2ND CHOICE; Start at 11:00 Acetaminophen/ Hydrocodone Bitart (Lortab 7.5-325/ 15ml Oral Solution) 15 ml PRN Q6HRS PRN PEG PAIN; Start 04/25/18 at 10:30 Active Scripts Active Reported Hydrocodone-Acetamn 7.5-325/15 (Hydrocodone/Acetaminophen) 15 Ml Solution 15 Ml PO Q4HRS Plaquenil (Hydroxychloroquine Sulfate) 200 Mg Tablet 200 Mg PO BID Sulindac 200 Mg Tablet 200 Mg PO BID Ibuprofen 600 Mg Tablet 600 Mg PO PRN Q6HRS PRN Vitals/I & O Vital Sign - Last 24 Hours 04/24/18 04/24/18 04/24/18 04/24/18 15:00 16:16 19:00 20:20 Temp 97.8 97.4 97.8 97.4 Pulse 81 92 Resp 18 18 B/P (MAP) 140/74 (96) 127/61 (83) Pulse Ox 97 97 95 96 O2 Delivery Room Air Room Air Room Air Room Air 04/24/18 04/24/18 04/25/18 04/25/18 20:55 23:00 03:00 07:00 Temp 98.1 97.5 97.7 98.1 97.5 97.7 Pulse 82 71 85 Resp 18 18 18 B/P (MAP) 124/55 (78) 137/61 (86) 144/78 (100) Pulse Ox 95 95 97 O2 Delivery Room Air Room Air Room Air Room Air 04/25/18 04/25/18 04/25/18 04/25/18 07:45 08:53 11:00 11:32 Temp 98.1 98.1 Pulse 94 Resp 18 B/P (MAP) 125/69 (87) Pulse Ox 96 96 O2 Delivery Room Air Room Air Room Air Room Air Intake and Output 04/24/18 04/24/18 04/25/18 15:01 23:01 07:01 Intake Total 0 ml Output Total 200 ml 150 ml Balance -200 ml -150 ml Nutrition Consultation Dietary Evaluation: Recommendations by RD: Increase Calorie Intake Comments: Can d/c PPN once TF started REC TF per following: Jevity 1.5@goal rate 55 ml/hr w/200 ml water flushes q6 hrs; change to Jevity 1.5 after assessing tolerance of Jevity 1.2@goal 40 ml/hr as ordered Expected Outcomes/Goals: to meet > 75% est nutr needs via tube feedings - not met, goal ongoing Interpretation of weight loss: >5% in 1 month Malnutrition Findings: Food and Nutrition Intake (Sev: <50% est energy req 5days Weight Status: Overweight AYAZ DALTON MD Apr 25, 2018 12:37
--- NOTE | 2018-04-25 14:35 | NUR ---
FRAN following for discharge planning. Discussed with RN. FRAN met with pt to discuss PT/OT SNU recommendation. Pt in agreement, she would like referral sent to [facility]. Pt requested phone number for her cancer doctor at [facility], DR. Vasquez - FRAN provided. SW faxed referral to [facility]. FRAN will continue to follow.
[2018-04-25 15:00] VITALS: BP 136/70
[2018-04-25] MEDS ORDERED: IODIXANOL 320 MG/ML 50ML VIAL. ONE (15:24)
[2018-04-25] MEDS ORDERED: LIDOCAINE WITH 8.4% SOD BICARB 3 ML DISP.SYRIN. ONE (15:54)
[2018-04-25] MEDS ORDERED: IODIXANOL 320 MG/ML 50ML VIAL. IV ONE (16:00)
[2018-04-25] MEDS ORDERED: LIDOCAINE WITH 8.4% SOD BICARB 3 ML DISP.SYRIN. INJ ONE ×2 (16:00)
--- NOTE | 2018-04-25 16:00 | NUR ---
Peripheral IV access lost at 1230, unable to administer noon ABT. Unable to find new peripheral IV even after ICU patent solicitor tried. Dr Terell munroe, got okay to access left upper chest port. ER nurses attempted to access port something they do frequently and had difficulty accessing, IR nurse assisted, there was no good blood return so port was de-accessed. IR nurse suggested that port could be accessed under fluoroscopy. This nurse called general surgery answering service and requested to have Dr Ching paged but was told that Dr Palomino was career transition specialist. Dr Palomino called and was notified of events, he deferred to Dr Ching. This nurse paged Dr Ching and asked him to please contact IR. Port was successfully accessed in IR, okay to draw, PPN restarted.
[2018-04-25 19:00] VITALS: BP 143/67
[2018-04-25] MEDS ORDERED: PHENOL ORAL SPRAY 177ML BOTTLE. PO PRN (20:30)
[2018-04-25 23:00] VITALS: BP 111/60
[2018-04-26] MEDS: PIPERACILLIN/TAZOBACTAM 3.375 GM in IV NORMAL SALINE 50ML 50 ML IV SCH ×5 (01:10→23:29)
[2018-04-26] MEDS: HYDROcodon/APAP 7.5/325MG ORAL 15 ML SOLUTION PEG PRN (01:10)
[2018-04-26 03:00] VITALS: BP 131/65
[2018-04-26] MEDS: AMINO AC 3%/ELECTROLYTE/GLYCER 1,000 ML IV SCH (05:13)
--- NOTE | 2018-04-26 05:57 | NUR ---
TF increased from 40 to 50 ml/hr. no residual.
[2018-04-26] MEDS: BUDESONIDE 0.5 MG/2 ML NEBU. NEB SCH ×2 (06:49→20:31)
[2018-04-26] MEDS: IPRATRPIUM/ALBUTEROL 0.5/2.5MG 3 ML NEBU. NEB SCH ×4 (06:49→20:31)
[2018-04-26 07:00] VITALS: BP 124/73
[2018-04-26] MEDS: ENOXAPARIN 40 MG/0.4 ML SYRINGE. SQ SCH (08:42)
--- NOTE | 2018-04-26 09:03 | PDOC ---
JANET ALCANTARA APRN 04/26/18 0903: SURGICAL PROGRESS NOTE Subjective resting port accessed in IR tolerating TFs Vital Signs Vital Signs Date Time Temp Pulse Resp B/P (MAP) Pulse Ox O2 Delivery O2 Flow Rate FiO2 04/26/18 07:00 98.1 105 16 124/73 (90) 95 Room Air 98.1 04/26/18 02:10 2.0 I&O Intake and Output 04/26/18 07:01 Intake Total 440 ml Output Total 1450 ml Balance -1010 ml Intake Oral 0 ml Tube Feeding 440 ml Output Urine Total 1450 ml # Voids 3 # Bowel Movements 3 General: Alert, Oriented X3, Cooperative, No acute distress Abdomen: Soft, Other (g tube in place) Assessment/Plan supportive care LASHAUN IZQUIERDO MD 04/26/18 1014: SURGICAL PROGRESS NOTE Assessment/Plan Agree with Kinsey's assessment and plan. May need revision of port if continued problems. JANET ALCANTARA APRN Apr 26, 2018 09:03 LASHAUN IZQUIERDO MD Apr 26, 2018 10:14
[2018-04-26 11:00] VITALS: BP 121/75
--- NOTE | 2018-04-26 13:05 | NUR ---
SW following. Referral sent to [facility]. FRAN spoke with Laurent - they wanted to know further information about pt, FRAN provided requested information. 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 Pt is on o2, PRN. Tube feedings is Fibersource 50 per hour with water flush 200 every 6 hours. Per pt, her cancer doctor does not want to start chemo until pt is stronger. FRAN will continue to follow. RN notified.
--- NOTE | 2018-04-26 13:31 | PDOC ---
PROGRESS NOTES Chief Complaint Chief Complaint aspriation pneumonitis, pneumonia, on zosyn, ongoing cough dysphagia, failed swallow eval RECENT PEG tube placement and free intraperitoneal gas and fluid possible mild hydronephrosis and right hydroureter anemia HX esophageal ca new dx peritonitis severe malnutrition, POA History of Present Illness History of Present Illness str. better, up to chair, no events cough is limited advancing tube feeds, still weak, will need SNU she feels better with breathing tx, s/p surgical placement of PEG still on PPN, Tube feeds not at goal, consult nutrition following v Vitals Vitals Vital Signs Date Time Temp Pulse Resp B/P (MAP) Pulse Ox O2 Delivery O2 Flow Rate FiO2 04/26/18 11:00 98.7 97 16 121/75 (90) 94 Room Air 98.7 04/26/18 02:10 2.0 Physical Exam Physical Exam GENERAL: NAD, Alert HEENT: PERRL, OC/OP NECK: Supple, no JVD, no LN LUNGS: Clear HEART: S1S2, no gallop, no murmur ABD: Soft, NT, no organomegaly, no rebound EXT: No edema, no cyanosis PARKING TECHNICIAN: Alert, 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, no focal neurologic deficit SKIN: No rash IV: ok General: Alert, Oriented X3, Cooperative, No acute distress Heart: Regular rate, Normal S1, Normal S2, No murmurs Lungs: Clear Abdomen: Soft, Other (g tube in place) Extremities: No clubbing, No cyanosis, No edema Skin: No rashes, No breakdown Review of Systems Review of Systems no n.v.d. Comment Review of Relevant I have reviewed the following items herbie (where applicable) has been applied. Labs Microbiology 04/20/18 Blood Culture - Final, Complete NO GROWTH AFTER 5 DAYS Medications Current Medications Sodium Chloride 1,000 ml @ 100 mls/hr Q10H IV Last administered on 04/20/18at 18:17; Start 04/19/18 at 21:00; Stop 04/21/18 at 14:28; Status DC Morphine Sulfate (Morphine Sulfate) 2 mg PRN Q4HRS PRN IV SEVERE PAIN Last administered on 04/20/18at 10:04; Start 04/19/18 at 21:00; Stop 04/20/18 at 18:10 ; Status DC Ondansetron HCl (Zofran) 4 mg PRN Q6HRS PRN IV NAUSEA/VOMITING 1ST CHOICE Last administered on 04/20/18at 10:04; Start 04/19/18 at 21:00 Sodium Chloride 1,000 ml @ 1,000 mls/hr 1X ONCE IV Last administered on at 10:05; Start 04/20/18 at 08:15; Stop 04/20/18 at 09:14; Status DC Ceftriaxone Sodium (Rocephin) 1 gm Q24H IVP Last administered on 04/21/18at 07: 37; Start 04/20/18 at 09:00; Stop 04/21/18 at 18:05; Status DC Metronidazole 100 ml @ 100 mls/hr Q8HRS IV Last administered on 04/23/18at 13: 18; Start 04/20/18 at 14:00; Stop 04/23/18 at 16:46; Status DC Propofol 20 ml @ As Directed STK-MED ONCE IV ; Start 04/20/18 at 15:46; Stop at 15:48; Status DC Lidocaine HCl (Lidocaine Pf 2% Vial) 5 ml STK-MED ONCE .ROUTE ; Start 04/20/18 at 15:46; Stop 04/20/18 at 15:48; Status DC Dexamethasone Sodium Phosphate (Decadron) 20 mg STK-MED ONCE .ROUTE ; Start at 15:47; Stop 04/20/18 at 15:48; Status DC Ondansetron HCl (Zofran) 4 mg STK-MED ONCE .ROUTE ; Start 04/20/18 at 15:47; Stop 04/20/18 at 15:48; Status DC Rocuronium [place] (Zemuron) 50 mg STK-MED ONCE .ROUTE ; Start 04/20/18 at 15:47 ; Stop 04/20/18 at 15:49; Status DC Fentanyl Citrate (Fentanyl 2ml Vial) 100 mcg STK-MED ONCE .ROUTE ; Start at 15:47; Stop 04/20/18 at 15:49; Status DC Bupivacaine HCl/ Epinephrine Bitart (Sensorcain-Mpf Epi 0.5%-[id number]) 30 ml STK -MED ONCE .ROUTE Last administered on 04/20/18at 17:02; Start 04/20/18 at 16:22 ; Stop 04/20/18 at 16:24; Status DC Sevoflurane (Ultane) 30 ml STK-MED ONCE IH ; Start 04/20/18 at 16:35; Stop 04/20 at 16:36; Status DC Succinylcholine Chloride (Anectine) 200 mg STK-MED ONCE .ROUTE ; Start 04/20/18 at 16:38; Stop 04/20/18 at 16:40; Status DC Glycopyrrolate (Robinul) 1 mg STK-MED ONCE .ROUTE ; Start 04/20/18 at 17:08; Stop 04/20/18 at 17:09; Status DC Neostigmine Methylsulfate (Bloxiverz) 10 mg STK-MED ONCE .ROUTE ; Start at 17:08; Stop 04/20/18 at 17:10; Status DC Sevoflurane (Ultane) 60 ml STK-MED ONCE IH ; Start 04/20/18 at 17:26; Stop 04/20 at 17:28; Status DC Enoxaparin Sodium (Lovenox 40mg Syringe) 40 mg Q24H SQ Last administered on at 08:42; Start 04/21/18 at 09:00 Sodium Chloride (Normal Saline Flush) 3 ml QSHIFT PRN IV AFTER MEDS AND BLOOD DRAWS; Start 04/20/18 at 18:15 Ringer's Solution 1,000 ml @ 100 mls/hr Q10H IV Last administered on at 06:00; Start 04/20/18 at 19:00; Stop 04/21/18 at 14:28; Status DC Morphine Sulfate 30 ml @ 0 mls/hr CONT PRN PRN IV PER PROTOCOL Last administered on 04/20/18at 19:03; Start 04/20/18 at 18:15; Stop 04/25/18 at 10:19 ; Status DC Docusate Sodium (Colace) 100 mg BID PO Last administered on 04/21/18at 07:36; Start 04/20/18 at 21:00; Stop 04/22/18 at 19:46; Status DC Ondansetron HCl (Zofran) 4 mg PRN Q6HRS PRN IV NAUESA, 1ST CHOICE; Start at 18:15; Status UNV Amino Acids/ Glycerin/ Electrolytes 1,000 ml @ 80 mls/hr [id number] IV Last administered on 04/26/18at 05:13; Start 04/20/18 at 21:00; Stop 04/26/18 at 09:55 ; Status DC Fentanyl Citrate (Fentanyl 2ml Vial) 100 mcg STK-MED ONCE .ROUTE ; Start at 18:52; Stop 04/20/18 at 18:54; Status DC Ondansetron HCl (Zofran) 4 mg PRN Q6HRS PRN IV NAUSEA/VOMITING; Start 04/20/18 at 19:00; Stop 04/20/18 at 23:59; Status DC Fentanyl Citrate (Fentanyl 2ml Vial) 25 mcg PRN Q5MIN PRN IV MILD PAIN Last administered on 04/20/18at 19:30; Start 04/20/18 at 19:00; Stop 04/20/18 at 23:59 ; Status DC Fentanyl Citrate (Fentanyl 2ml Vial) 50 mcg PRN Q5MIN PRN IV MODERATE TO SEVERE PAIN; Start 04/20/18 at 19:00; Stop 04/20/18 at 23:59; Status DC Morphine Sulfate (Morphine Sulfate) 1 mg PRN Q10MIN PRN IV SEVERE PAIN; Start 04/20/18 at 19:00; Stop 04/20/18 at 23:59; Status DC Ringer's Solution 1,000 ml @ 30 mls/hr Q24H IV ; Start 04/20/18 at 19:00; Stop 04/20/18 at 23:59; Status DC Lidocaine HCl (Xylocaine-Mpf 1% 2ml Vial) 2 ml PRN 1X PRN ID PRIOR TO IV START ; Start 04/20/18 at 19:00; Stop 04/20/18 at 23:59; Status DC Hydromorphone HCl (Dilaudid) 0.5 mg PRN Q10MIN PRN IV SEV PAIN, Second choice; Start 04/20/18 at 19:00; Stop 04/20/18 at 23:59; Status DC Prochlorperazine Edisylate (Compazine) 5 mg PACU PRN PRN IV NAUSEA, MRX1; Start 04/20/18 at 19:00; Stop 04/20/18 at 23:59; Status DC Acetaminophen (Tylenol) 650 mg 1X PRN PRN PO PRE-TRANSFUSION; Start 04/21/18 at 13:15 Sodium Chloride 1,000 ml @ 25 mls/hr Q24H PRN IV 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; Start 04/21/18 at 14:30; Stop 04/22/18 at 19:46; Status DC Piperacillin Sod/ Tazobactam Sod 3.375 gm/Sodium Chloride 50 ml @ 100 mls/hr Q6HRS IV Last administered on 04/26/18at 12:36; Start 04/21/18 at 18:30 Saliva Substitute (Biotene Moisturizing Mouth) 2 spray PRN Q15MIN PRN PO DRY MOUTH Last administered on 04/25/18at 22:18; Start 04/22/18 at 11:45 Bisacodyl (Dulcolax Supp) 10 mg PRN DAILY PRN [place] CONSTIPATION; Start 04/22/18 at 19:45 Albuterol/ Ipratropium (Duoneb) 3 ml 1X ONCE NEB Last administered on at 13:00; Start 04/23/18 at 13:00; Stop 04/23/18 at 13:01; Status DC Albuterol/ Ipratropium (Duoneb) 3 ml RTQID NEB Last administered on 04/26/18at 10:45; Start 04/23/18 at 16:00 Budesonide (Pulmicort) 0.5 mg RTBID NEB Last administered on 04/26/18at 06:49; Start 04/23/18 at 20:00 Budesonide (Pulmicort) 0.5 mg 1X ONCE NEB ; Start 04/23/18 at 13:00; Stop 04/23 at 13:01; Status DC Guaifenesin (Robitussin Dm) 10 ml PRN Q6HRS PRN PO COUGH 1ST CHOICE; Start at 11:00 Codeine Sulfate (Codeine) 30 mg PRN Q6HRS PRN PO cough 2ND CHOICE; Start at 11:00 Acetaminophen/ Hydrocodone Bitart (Lortab 7.5-325/ 15ml Oral Solution) 15 ml PRN Q6HRS PRN PEG PAIN Last administered on 04/26/18at 01:10; Start 04/25/18 at 10:30 Iodixanol (Visipaque 320) 50 ml STK-MED ONCE .ROUTE ; Start 04/25/18 at 15:24; Stop 04/25/18 at 15:26; Status DC Lidocaine/Sodium Bicarbonate (Buffered Lidocaine 1%) 3 ml 1X ONCE INJ ; Start 04/25/18 at 16:00; Stop 04/25/18 at 16:02; Status DC Lidocaine/Sodium Bicarbonate (Buffered Lidocaine 1%) 3 ml STK-MED ONCE .ROUTE ; Start 04/25/18 at 15:54; Stop 04/25/18 at 15:56; Status DC Lidocaine/Sodium Bicarbonate (Buffered Lidocaine 1%) 1 ml 1X ONCE INJ Last administered on 04/25/18at 16:03; Start 04/25/18 at 16:00; Stop 04/25/18 at 16:02 ; Status DC Iodixanol (Visipaque 320) 10 ml 1X ONCE IV Last administered on 04/25/18at 16: 03; Start 04/25/18 at 16:00; Stop 04/25/18 at 16:02; Status DC Throat Lozenges (Chloraseptic) 1 spray PRN Q2HR PRN PO SORE THROAT Last administered on 04/25/18at 22:18; Start 04/25/18 at 20:30 Active Scripts Active Reported Hydrocodone-Acetamn 7.5-325/15 (Hydrocodone/Acetaminophen) 15 Ml Solution 15 Ml PO Q4HRS Plaquenil (Hydroxychloroquine Sulfate) 200 Mg Tablet 200 Mg PO BID Sulindac 200 Mg Tablet 200 Mg PO BID Ibuprofen 600 Mg Tablet 600 Mg PO PRN Q6HRS PRN Vitals/I & O Vital Sign - Last 24 Hours 04/25/18 04/25/18 04/25/18 04/25/18 15:00 19:00 19:55 20:50 Temp 98.1 98.3 98.1 98.3 Pulse 84 86 Resp 18 18 B/P (MAP) 136/70 (92) 143/67 (92) Pulse Ox 96 95 95 O2 Delivery Room Air Room Air Room Air Room Air O2 Flow Rate 2.0 04/25/18 04/26/18 04/26/18 04/26/18 23:00 01:10 02:10 03:00 Temp 98.5 98.4 98.5 98.4 Pulse 89 89 Resp 18 18 B/P (MAP) 111/60 (77) 131/65 (87) Pulse Ox 95 95 95 95 O2 Delivery Room Air Room Air Room Air Room Air O2 Flow Rate 2.0 2.0 04/26/18 04/26/18 04/26/18 04/26/18 06:50 07:00 07:45 10:46 Temp 98.1 98.1 Pulse 105 Resp 16 B/P (MAP) 124/73 (90) Pulse Ox 97 95 O2 Delivery Room Air Room Air Room Air Room Air 04/26/18 11:00 Temp 98.7 98.7 Pulse 97 Resp 16 B/P (MAP) 121/75 (90) Pulse Ox 94 O2 Delivery Room Air Intake and Output 04/25/18 04/25/18 04/26/18 15:01 23:01 07:01 Intake Total 440 ml 0 ml Output Total 750 ml 700 ml Balance 440 ml -750 ml -700 ml Nutrition Consultation Dietary Evaluation: Recommendations by RD: Increase Calorie Intake Comments: TF adjustment: Jevity 1.5 @ goal rate 55 ml/hr w/250 ml water flushes q6 hrs Expected Outcomes/Goals: to meet > 75% est nutr needs via tube feedings - met, goal ongoing Interpretation of weight loss: >5% in 1 month Malnutrition Findings: Food and Nutrition Intake (Sev: <50% est energy req 5days Weight Status: Overweight AYAZ DALTON MD Apr 26, 2018 13:31
--- NOTE | 2018-04-26 14:30 | NUR ---
Tube feeding goal met at this time per new parameters suggested by Optical Brightener Maker Helper. No residual. Procalamine discontinued.
[2018-04-26 15:00] VITALS: BP 124/76
[2018-04-26 19:25] VITALS: BP 136/64
[2018-04-26 23:15] VITALS: BP 129/70
[2018-04-27 03:20] VITALS: BP 127/67
[2018-04-27 05:07] LABS: BASO % 0 % (0-3); EOS # 0.4 x10^3/uL (0.0-0.7); EOS % 4 % (0-3); HEMATOCRIT 23.8 % (36.0-47.0); HEMOGLOBIN 7.4 g/dL (12.0-15.5); LYMPH # 0.4 x10^3/uL (1.0-4.8); LYMPH % 5 % (24-48); MEAN CORPUSCULAR HEMOGLOBIN 21 pg (25-35); MEAN CORPUSCULAR HGB CONC 31 g/dL (31-37); MEAN CORPUSCULAR VOLUME 69 fL (79-100); MONO # 0.6 x10^3/uL (0.0-1.1); MONO % 7 % (0-9); NEUT # 7.3 x10^3uL (1.8-7.7); NEUT % 84 % (31-73); PLATELET COUNT 111 x10^3/uL (140-400); RED BLOOD COUNT 3.47 x10^6/uL (3.50-5.40); RED CELL DISTRIBUTION WIDTH 33.5 % (11.5-14.5); WHITE BLOOD COUNT 8.7 x10^3/uL (4.0-11.0)
[2018-04-27 05:23] LABS: ALBUMIN 1.8 g/dL (3.4-5.0); ALBUMIN/GLOBULIN RATIO 0.5 (1.0-1.7); CALCIUM 7.7 mg/dL (8.5-10.1); CREATININE 0.6 mg/dL (0.6-1.0); TOTAL PROTEIN 5.1 g/dL (6.4-8.2)
[2018-04-27 05:24] LABS: GFR 99.4; POTASSIUM 3.4 mmol/L (3.5-5.1); TOTAL BILIRUBIN 0.4 mg/dL (0.2-1.0)
[2018-04-27] MEDS: PIPERACILLIN/TAZOBACTAM 3.375 GM in IV NORMAL SALINE 50ML 50 ML IV SCH ×4 (06:00→23:47)
[2018-04-27 07:00] VITALS: BP 147/81
[2018-04-27] MEDS: IPRATRPIUM/ALBUTEROL 0.5/2.5MG 3 ML NEBU. NEB SCH ×4 (07:00→19:51)
[2018-04-27] MEDS: BUDESONIDE 0.5 MG/2 ML NEBU. NEB SCH ×2 (07:00→19:51)
[2018-04-27 11:00] VITALS: BP 123/73
[2018-04-27] MEDS: ENOXAPARIN 40 MG/0.4 ML SYRINGE. SQ SCH (12:11)
--- NOTE | 2018-04-27 12:43 | PDOC ---
PROGRESS NOTES Chief Complaint Chief Complaint aspriation pneumonitis, pneumonia, on zosyn, ongoing cough dysphagia, failed swallow eval RECENT PEG tube placement and free intraperitoneal gas and fluid possible mild hydronephrosis and right hydroureter anemia HX esophageal ca new dx peritonitis severe malnutrition, POA History of Present Illness History of Present Illness doing well, stil coughing, weak str. better, up to chair, no events cough is limited advancing tube feeds, still weak, will need SNU she feels better with breathing tx, s/p surgical placement of PEG , Tube feeds now at goal, off PPN v Vitals Vitals Vital Signs Date Time Temp Pulse Resp B/P (MAP) Pulse Ox O2 Delivery O2 Flow Rate FiO2 04/27/18 11:00 98.5 101 18 123/73 (90) 94 98.5 04/27/18 10:51 Nasal Cannula 1.5 Physical Exam Physical Exam GENERAL: NAD, Alert HEENT: PERRL, OC/OP NECK: Supple, no JVD, no LN LUNGS: Clear HEART: S1S2, no gallop, no murmur ABD: Soft, NT, no organomegaly, no rebound EXT: No edema, no cyanosis [employer]: Alert, 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, no focal neurologic deficit SKIN: No rash IV: ok General: Alert, Oriented X3, Cooperative, No acute distress Heart: Regular rate, Normal S1, Normal S2, No murmurs Lungs: Clear Abdomen: Soft, Other (g tube in place) Extremities: No clubbing, No cyanosis, No edema Skin: No rashes, No breakdown Labs LABS Laboratory Tests Test 04/27/18 04:40 White Blood Count 8.7 x10^3/uL (4.0-11.0) Red Blood Count 3.47 x10^6/uL (3.50-5.40) Hemoglobin 7.4 g/dL (12.0-15.5) Hematocrit 23.8 % (36.0-47.0) Mean Corpuscular Volume 69 fL (79-100) Mean Corpuscular Hemoglobin 21 pg (25-35) Mean Corpuscular Hemoglobin Concent 31 g/dL (31-37) Red Cell Distribution Width 33.5 % (11.5-14.5) Platelet Count 111 x10^3/uL (140-400) Neutrophils (%) (Auto) 84 % (31-73) Lymphocytes (%) (Auto) 5 % (24-48) Monocytes (%) (Auto) 7 % (0-9) Eosinophils (%) (Auto) 4 % (0-3) Basophils (%) (Auto) 0 % (0-3) Neutrophils # (Auto) 7.3 x10^3uL (1.8-7.7) Lymphocytes # (Auto) 0.4 x10^3/uL (1.0-4.8) Monocytes # (Auto) 0.6 x10^3/uL (0.0-1.1) Eosinophils # (Auto) 0.4 x10^3/uL (0.0-0.7) Basophils # (Auto) 0.0 x10^3/uL (0.0-0.2) Sodium Level 139 mmol/L (136-145) Potassium Level 3.4 mmol/L (3.5-5.1) Chloride Level 107 mmol/L (98-107) Carbon Dioxide Level 25 mmol/L (21-32) Anion Gap 7 (6-14) Blood Urea Nitrogen 15 mg/dL (7-20) Creatinine 0.6 mg/dL (0.6-1.0) Estimated GFR (Cockcroft-Gault) 99.4 BUN/Creatinine Ratio 25 (6-20) Glucose Level 113 mg/dL (70-99) Calcium Level 7.7 mg/dL (8.5-10.1) Total Bilirubin 0.4 mg/dL (0.2-1.0) Aspartate Amino Transf (AST/SGOT) 25 U/L (15-37) Alanine Aminotransferase (ALT/SGPT) 16 U/L (14-59) Alkaline Phosphatase 44 U/L (46-116) Total Protein 5.1 g/dL (6.4-8.2) Albumin 1.8 g/dL (3.4-5.0) Albumin/Globulin Ratio 0.5 (1.0-1.7) Review of Systems Review of Systems weakness dyspnea, wheeze, cough with sputum Comment Review of Relevant I have reviewed the following items herbie (where applicable) has been applied. Labs Laboratory Tests Test 04/27/18 04:40 White Blood Count 8.7 x10^3/uL (4.0-11.0) Red Blood Count 3.47 x10^6/uL (3.50-5.40) Hemoglobin 7.4 g/dL (12.0-15.5) Hematocrit 23.8 % (36.0-47.0) Mean Corpuscular Volume 69 fL (79-100) Mean Corpuscular Hemoglobin 21 pg (25-35) Mean Corpuscular Hemoglobin Concent 31 g/dL (31-37) Red Cell Distribution Width 33.5 % (11.5-14.5) Platelet Count 111 x10^3/uL (140-400) Neutrophils (%) (Auto) 84 % (31-73) Lymphocytes (%) (Auto) 5 % (24-48) Monocytes (%) (Auto) 7 % (0-9) Eosinophils (%) (Auto) 4 % (0-3) Basophils (%) (Auto) 0 % (0-3) Neutrophils # (Auto) 7.3 x10^3uL (1.8-7.7) Lymphocytes # (Auto) 0.4 x10^3/uL (1.0-4.8) Monocytes # (Auto) 0.6 x10^3/uL (0.0-1.1) Eosinophils # (Auto) 0.4 x10^3/uL (0.0-0.7) Basophils # (Auto) 0.0 x10^3/uL (0.0-0.2) Sodium Level 139 mmol/L (136-145) Potassium Level 3.4 mmol/L (3.5-5.1) Chloride Level 107 mmol/L (98-107) Carbon Dioxide Level 25 mmol/L (21-32) Anion Gap 7 (6-14) Blood Urea Nitrogen 15 mg/dL (7-20) Creatinine 0.6 mg/dL (0.6-1.0) Estimated GFR (Cockcroft-Gault) 99.4 BUN/Creatinine Ratio 25 (6-20) Glucose Level 113 mg/dL (70-99) Calcium Level 7.7 mg/dL (8.5-10.1) Total Bilirubin 0.4 mg/dL (0.2-1.0) Aspartate Amino Transf (AST/SGOT) 25 U/L (15-37) Alanine Aminotransferase (ALT/SGPT) 16 U/L (14-59) Alkaline Phosphatase 44 U/L (46-116) Total Protein 5.1 g/dL (6.4-8.2) Albumin 1.8 g/dL (3.4-5.0) Albumin/Globulin Ratio 0.5 (1.0-1.7) Laboratory Tests Test 04/27/18 04:40 White Blood Count 8.7 x10^3/uL (4.0-11.0) Red Blood Count 3.47 x10^6/uL (3.50-5.40) Hemoglobin 7.4 g/dL (12.0-15.5) Hematocrit 23.8 % (36.0-47.0) Mean Corpuscular Volume 69 fL (79-100) Mean Corpuscular Hemoglobin 21 pg (25-35) Mean Corpuscular Hemoglobin Concent 31 g/dL (31-37) Red Cell Distribution Width 33.5 % (11.5-14.5) Platelet Count 111 x10^3/uL (140-400) Neutrophils (%) (Auto) 84 % (31-73) Lymphocytes (%) (Auto) 5 % (24-48) Monocytes (%) (Auto) 7 % (0-9) Eosinophils (%) (Auto) 4 % (0-3) Basophils (%) (Auto) 0 % (0-3) Neutrophils # (Auto) 7.3 x10^3uL (1.8-7.7) Lymphocytes # (Auto) 0.4 x10^3/uL (1.0-4.8) Monocytes # (Auto) 0.6 x10^3/uL (0.0-1.1) Eosinophils # (Auto) 0.4 x10^3/uL (0.0-0.7) Basophils # (Auto) 0.0 x10^3/uL (0.0-0.2) Sodium Level 139 mmol/L (136-145) Potassium Level 3.4 mmol/L (3.5-5.1) Chloride Level 107 mmol/L (98-107) Carbon Dioxide Level 25 mmol/L (21-32) Anion Gap 7 (6-14) Blood Urea Nitrogen 15 mg/dL (7-20) Creatinine 0.6 mg/dL (0.6-1.0) Estimated GFR (Cockcroft-Gault) 99.4 BUN/Creatinine Ratio 25 (6-20) Glucose Level 113 mg/dL (70-99) Calcium Level 7.7 mg/dL (8.5-10.1) Total Bilirubin 0.4 mg/dL (0.2-1.0) Aspartate Amino Transf (AST/SGOT) 25 U/L (15-37) Alanine Aminotransferase (ALT/SGPT) 16 U/L (14-59) Alkaline Phosphatase 44 U/L (46-116) Total Protein 5.1 g/dL (6.4-8.2) Albumin 1.8 g/dL (3.4-5.0) Albumin/Globulin Ratio 0.5 (1.0-1.7) Microbiology 04/20/18 Blood Culture - Final, Complete NO GROWTH AFTER 5 DAYS Medications Current Medications Sodium Chloride 1,000 ml @ 100 mls/hr Q10H IV Last administered on 04/20/18at 18:17; Start 04/19/18 at 21:00; Stop 04/21/18 at 14:28; Status DC Morphine Sulfate (Morphine Sulfate) 2 mg PRN Q4HRS PRN IV SEVERE PAIN Last administered on 04/20/18at 10:04; Start 04/19/18 at 21:00; Stop 04/20/18 at 18:10 ; Status DC Ondansetron HCl (Zofran) 4 mg PRN Q6HRS PRN IV NAUSEA/VOMITING 1ST CHOICE Last administered on 04/20/18at 10:04; Start 04/19/18 at 21:00 Sodium Chloride 1,000 ml @ 1,000 mls/hr 1X ONCE IV Last administered on at 10:05; Start 04/20/18 at 08:15; Stop 04/20/18 at 09:14; Status DC Ceftriaxone Sodium (Rocephin) 1 gm Q24H IVP Last administered on 04/21/18at 07: 37; Start 04/20/18 at 09:00; Stop 04/21/18 at 18:05; Status DC Metronidazole 100 ml @ 100 mls/hr Q8HRS IV Last administered on 04/23/18at 13: 18; Start 04/20/18 at 14:00; Stop 04/23/18 at 16:46; Status DC Propofol 20 ml @ As Directed STK-MED ONCE IV ; Start 04/20/18 at 15:46; Stop at 15:48; Status DC Lidocaine HCl (Lidocaine Pf 2% Vial) 5 ml STK-MED ONCE .ROUTE ; Start 04/20/18 at 15:46; Stop 04/20/18 at 15:48; Status DC Dexamethasone Sodium Phosphate (Decadron) 20 mg STK-MED ONCE .ROUTE ; Start at 15:47; Stop 04/20/18 at 15:48; Status DC Ondansetron HCl (Zofran) 4 mg STK-MED ONCE .ROUTE ; Start 04/20/18 at 15:47; Stop 04/20/18 at 15:48; Status DC Rocuronium Od[place]ah (Zemuron) 50 mg STK-MED ONCE .ROUTE ; Start 04/20/18 at 15:47 ; Stop 04/20/18 at 15:49; Status DC Fentanyl Citrate (Fentanyl 2ml Vial) 100 mcg STK-MED ONCE .ROUTE ; Start at 15:47; Stop 04/20/18 at 15:49; Status DC Bupivacaine HCl/ Epinephrine Bitart (Sensorcain-Mpf Epi 0.5%-1:270248) 30 ml STK -MED ONCE .ROUTE Last administered on 04/20/18at 17:02; Start 04/20/18 at 16:22 ; Stop 04/20/18 at 16:24; Status DC Sevoflurane (Ultane) 30 ml STK-MED ONCE IH ; Start 04/20/18 at 16:35; Stop 04/20 at 16:36; Status DC Succinylcholine Chloride (Anectine) 200 mg STK-MED ONCE .ROUTE ; Start 04/20/18 at 16:38; Stop 04/20/18 at 16:40; Status DC Glycopyrrolate (Robinul) 1 mg STK-MED ONCE .ROUTE ; Start 04/20/18 at 17:08; Stop 04/20/18 at 17:09; Status DC Neostigmine Methylsulfate (Bloxiverz) 10 mg STK-MED ONCE .ROUTE ; Start at 17:08; Stop 04/20/18 at 17:10; Status DC Sevoflurane (Ultane) 60 ml STK-MED ONCE IH ; Start 04/20/18 at 17:26; Stop 04/20 at 17:28; Status DC Enoxaparin Sodium (Lovenox 40mg Syringe) 40 mg Q24H SQ Last administered on at 12:11; Start 04/21/18 at 09:00 Sodium Chloride (Normal Saline Flush) 3 ml QSHIFT PRN IV AFTER MEDS AND BLOOD DRAWS; Start 04/20/18 at 18:15 Ringer's Solution 1,000 ml @ 100 mls/hr Q10H IV Last administered on at 06:00; Start 04/20/18 at 19:00; Stop 04/21/18 at 14:28; Status DC Morphine Sulfate 30 ml @ 0 mls/hr CONT PRN PRN IV PER PROTOCOL Last administered on 04/20/18at 19:03; Start 04/20/18 at 18:15; Stop 04/25/18 at 10:19 ; Status DC Docusate Sodium (Colace) 100 mg BID PO Last administered on 04/21/18at 07:36; Start 04/20/18 at 21:00; Stop 04/22/18 at 19:46; Status DC Ondansetron HCl (Zofran) 4 mg PRN Q6HRS PRN IV NAUESA, 1ST CHOICE; Start at 18:15; Status UNV Amino Acids/ Glycerin/ Electrolytes 1,000 ml @ 80 mls/hr [id number] IV Last administered on 04/26/18at 05:13; Start 04/20/18 at 21:00; Stop 04/26/18 at 09:55 ; Status DC Fentanyl Citrate (Fentanyl 2ml Vial) 100 mcg STK-MED ONCE .ROUTE ; Start at 18:52; Stop 04/20/18 at 18:54; Status DC Ondansetron HCl (Zofran) 4 mg PRN Q6HRS PRN IV NAUSEA/VOMITING; Start 04/20/18 at 19:00; Stop 04/20/18 at 23:59; Status DC Fentanyl Citrate (Fentanyl 2ml Vial) 25 mcg PRN Q5MIN PRN IV MILD PAIN Last administered on 04/20/18at 19:30; Start 04/20/18 at 19:00; Stop 04/20/18 at 23:59 ; Status DC Fentanyl Citrate (Fentanyl 2ml Vial) 50 mcg PRN Q5MIN PRN IV MODERATE TO SEVERE PAIN; Start 04/20/18 at 19:00; Stop 04/20/18 at 23:59; Status DC Morphine Sulfate (Morphine Sulfate) 1 mg PRN Q10MIN PRN IV SEVERE PAIN; Start 04/20/18 at 19:00; Stop 04/20/18 at 23:59; Status DC Ringer's Solution 1,000 ml @ 30 mls/hr Q24H IV ; Start 04/20/18 at 19:00; Stop 04/20/18 at 23:59; Status DC Lidocaine HCl (Xylocaine-Mpf 1% 2ml Vial) 2 ml PRN 1X PRN ID PRIOR TO IV START ; Start 04/20/18 at 19:00; Stop 04/20/18 at 23:59; Status DC Hydromorphone HCl (Dilaudid) 0.5 mg PRN Q10MIN PRN IV SEV PAIN, Second choice; Start 04/20/18 at 19:00; Stop 04/20/18 at 23:59; Status DC Prochlorperazine Edisylate (Compazine) 5 mg PACU PRN PRN IV NAUSEA, MRX1; Start 04/20/18 at 19:00; Stop 04/20/18 at 23:59; Status DC Acetaminophen (Tylenol) 650 mg 1X PRN PRN PO PRE-TRANSFUSION; Start 04/21/18 at 13:15; Stop 04/27/18 at 11:25; Status DC Sodium Chloride 1,000 ml @ 25 mls/hr Q24H PRN IV C[employer]IED [employer] carrier; Start 04/21/18 at 14:30; Stop 04/22/18 at 19:46; Status DC Piperacillin Sod/ Tazobactam Sod 3.375 gm/Sodium Chloride 50 ml @ 100 mls/hr Q6HRS IV Last administered on 04/27/18at 12:00; Start 04/21/18 at 18:30; Stop at 19:00 Saliva Substitute (Biotene Moisturizing Mouth) 2 spray PRN Q15MIN PRN PO DRY MOUTH Last administered on 04/25/18at 22:18; Start 04/22/18 at 11:45 Bisacodyl (Dulcolax Supp) 10 mg PRN DAILY PRN UT CONSTIPATION; Start 04/22/18 at 19:45 Albuterol/ Ipratropium (Duoneb) 3 ml 1X ONCE NEB Last administered on at 13:00; Start 04/23/18 at 13:00; Stop 04/23/18 at 13:01; Status DC Albuterol/ Ipratropium (Duoneb) 3 ml RTQID NEB Last administered on 04/27/18at 10:50; Start 04/23/18 at 16:00 Budesonide (Pulmicort) 0.5 mg RTBID NEB Last administered on 04/27/18at 07:00; Start 04/23/18 at 20:00 Budesonide (Pulmicort) 0.5 mg 1X ONCE NEB ; Start 04/23/18 at 13:00; Stop 04/23 at 13:01; Status DC Guaifenesin (Robitussin Dm) 10 ml PRN Q6HRS PRN PO COUGH 1ST CHOICE; Start at 11:00 Codeine Sulfate (Codeine) 30 mg PRN Q6HRS PRN PO cough 2ND CHOICE; Start at 11:00 Acetaminophen/ Hydrocodone Bitart (Lortab 7.5-325/ 15ml Oral Solution) 15 ml PRN Q6HRS PRN PEG PAIN Last administered on 04/26/18at 01:10; Start 04/25/18 at 10:30 Iodixanol (Visipaque 320) 50 ml STK-MED ONCE .ROUTE ; Start 04/25/18 at 15:24; Stop 04/25/18 at 15:26; Status DC Lidocaine/Sodium Bicarbonate (Buffered Lidocaine 1%) 3 ml 1X ONCE INJ ; Start 04/25/18 at 16:00; Stop 04/25/18 at 16:02; Status DC Lidocaine/Sodium Bicarbonate (Buffered Lidocaine 1%) 3 ml STK-MED ONCE .ROUTE ; Start 04/25/18 at 15:54; Stop 04/25/18 at 15:56; Status DC Lidocaine/Sodium Bicarbonate (Buffered Lidocaine 1%) 1 ml 1X ONCE INJ Last administered on 04/25/18at 16:03; Start 04/25/18 at 16:00; Stop 04/25/18 at 16:02 ; Status DC Iodixanol (Visipaque 320) 10 ml 1X ONCE IV Last administered on 04/25/18at 16: 03; Start 04/25/18 at 16:00; Stop 04/25/18 at 16:02; Status DC Throat Lozenges (Chloraseptic) 1 spray PRN Q2HR PRN PO SORE THROAT Last administered on 04/25/18at 22:18; Start 04/25/18 at 20:30 Active Scripts Active Reported Hydrocodone-Acetamn 7.5-325/15 (Hydrocodone/Acetaminophen) 15 Ml Solution 15 Ml PO Q4HRS Plaquenil (Hydroxychloroquine Sulfate) 200 Mg Tablet 200 Mg PO BID Sulindac 200 Mg Tablet 200 Mg PO BID Ibuprofen 600 Mg Tablet 600 Mg PO PRN Q6HRS PRN Vitals/I & O Vital Sign - Last 24 Hours 04/26/18 04/26/18 04/26/18 04/26/18 14:58 15:00 19:25 20:00 Temp 98.1 98.7 98.1 98.7 Pulse 106 104 Resp 16 20 B/P (MAP) 124/76 (92) 136/64 (88) Pulse Ox 97 96 O2 Delivery Room Air Room Air Room Air Room Air O2 Flow Rate 2.0 04/26/18 04/26/18 04/27/18 04/27/18 20:32 23:15 03:20 07:00 Temp 98.3 98.4 98.0 98.3 98.4 98.0 Pulse 104 92 99 Resp 18 18 18 B/P (MAP) 129/70 (89) 127/67 (87) 147/81 (103) Pulse Ox 98 98 98 O2 Delivery Room Air Nasal Cannula Nasal Cannula O2 Flow Rate 2.0 2.0 04/27/18 04/27/18 04/27/18 07:02 10:51 11:00 Temp 98.5 98.5 Pulse 101 Resp 18 B/P (MAP) 123/73 (90) Pulse Ox 96 94 O2 Delivery Nasal Cannula Nasal Cannula O2 Flow Rate 1.5 1.5 Intake and Output 04/26/18 04/26/18 04/27/18 15:01 23:01 07:01 Intake Total 200 ml 250 ml Output Total 300 ml 900 ml Balance 200 ml -50 ml -900 ml Nutrition Consultation Dietary Evaluation: Recommendations by RD: Increase Calorie Intake Comments: TF adjustment: Jevity 1.5 @ goal rate 55 ml/hr w/250 ml water flushes q6 hrs Expected Outcomes/Goals: to meet > 75% est nutr needs via tube feedings - met, goal ongoing Interpretation of weight loss: >5% in 1 month Malnutrition Findings: Food and Nutrition Intake (Sev: <50% est energy req 5days Weight Status: Overweight AYAZ DALTON MD Apr 27, 2018 12:43
--- NOTE | 2018-04-27 14:44 | PDOC ---
Provider Note Provider Note SURG Candelario for Nicolas Vásquez and Humza no new complaints both power port and feeding tube are being used bruising left upper chest no new surg recs ROHIT JUNIOR MD Apr 27, 2018 14:44
[2018-04-27 15:00] VITALS: BP 121/67
[2018-04-27 19:00] VITALS: BP 125/76
[2018-04-27 23:00] VITALS: BP 123/72
[2018-04-28 03:00] VITALS: BP 129/57
[2018-04-28] MEDS: PIPERACILLIN/TAZOBACTAM 3.375 GM in IV NORMAL SALINE 50ML 50 ML IV SCH (05:52)
[2018-04-28] MEDS: BUDESONIDE 0.5 MG/2 ML NEBU. NEB SCH ×2 (06:09→14:51)
[2018-04-28] MEDS: IPRATRPIUM/ALBUTEROL 0.5/2.5MG 3 ML NEBU. NEB SCH ×4 (06:10→20:00)
[2018-04-28 07:00] VITALS: BP 123/71
--- NOTE | 2018-04-28 07:20 | NUR ---
Needle on port-a-cath not changed. Needle available was different than needle used on pt. PARDEEP Viveros (day shift) was notified. Dressing was changed. Addendum: 04/28/18 at 0721 by ROSSY MANDEL RN Amended: Links added.
[2018-04-28] MEDS: ENOXAPARIN 40 MG/0.4 ML SYRINGE. SQ SCH (08:32)
[2018-04-28] MEDS ORDERED: AMOXICILLIN/K CLAV 875/125MG TABLET. PO ONE (10:15)
[2018-04-28 11:00] VITALS: BP 128/70
--- NOTE | 2018-04-28 12:45 | PDOC ---
Provider Note Provider Note SURG Candelario for Thalia Rider no new complaints questions about follow up no new surg recs ROHIT JUNIOR MD Apr 28, 2018 12:45
[2018-04-28 15:00] VITALS: BP 127/74
--- NOTE | 2018-04-28 15:29 | PDOC ---
PROGRESS NOTES Chief Complaint Chief Complaint aspriation pneumonitis, pneumonia, on zosyn, ongoing cough dysphagia, failed swallow eval RECENT PEG tube placement and free intraperitoneal gas and fluid possible mild hydronephrosis and right hydroureter anemia HX esophageal ca new dx peritonitis severe malnutrition, POA History of Present Illness History of Present Illness doing well, still coughing, weak str. better, up to chair, no events cough is limited advancing tube feeds, still weak, will need SNU she feels better with breathing tx, s/p surgical placement of PEG Tube feeds now at goal, off PPN v Vitals Vitals Vital Signs Date Time Temp Pulse Resp B/P (MAP) Pulse Ox O2 Delivery O2 Flow Rate FiO2 04/28/18 14:53 Room Air 04/28/18 12:02 98 1.5 04/28/18 11:00 98.6 89 18 128/70 (89) 98.6 Physical Exam Physical Exam GENERAL: NAD, Alert HEENT: PERRL, OC/OP NECK: Supple, no JVD, no LN LUNGS: Clear HEART: S1S2, no gallop, no murmur ABD: Soft, NT, no organomegaly, no rebound EXT: No edema, no cyanosis JUNIOR PROJECT MANAGER: Alert, 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, no focal neurologic deficit SKIN: No rash IV: ok General: Alert, Oriented X3, Cooperative, No acute distress Heart: Regular rate, Normal S1, Normal S2, No murmurs Lungs: Clear Abdomen: Soft, Other (g tube in place) Extremities: No clubbing, No cyanosis, No edema Skin: No rashes, No breakdown Review of Systems Review of Systems no n/v.d Assessment and Plan Assessmemt and Plan cont current try to DC to SNU soon Comment Review of Relevant I have reviewed the following items herbie (where applicable) has been applied. Labs Laboratory Tests Test 04/27/18 04:40 White Blood Count 8.7 x10^3/uL (4.0-11.0) Red Blood Count 3.47 x10^6/uL (3.50-5.40) Hemoglobin 7.4 g/dL (12.0-15.5) Hematocrit 23.8 % (36.0-47.0) Mean Corpuscular Volume 69 fL (79-100) Mean Corpuscular Hemoglobin 21 pg (25-35) Mean Corpuscular Hemoglobin Concent 31 g/dL (31-37) Red Cell Distribution Width 33.5 % (11.5-14.5) Platelet Count 111 x10^3/uL (140-400) Neutrophils (%) (Auto) 84 % (31-73) Lymphocytes (%) (Auto) 5 % (24-48) Monocytes (%) (Auto) 7 % (0-9) Eosinophils (%) (Auto) 4 % (0-3) Basophils (%) (Auto) 0 % (0-3) Neutrophils # (Auto) 7.3 x10^3uL (1.8-7.7) Lymphocytes # (Auto) 0.4 x10^3/uL (1.0-4.8) Monocytes # (Auto) 0.6 x10^3/uL (0.0-1.1) Eosinophils # (Auto) 0.4 x10^3/uL (0.0-0.7) Basophils # (Auto) 0.0 x10^3/uL (0.0-0.2) Sodium Level 139 mmol/L (136-145) Potassium Level 3.4 mmol/L (3.5-5.1) Chloride Level 107 mmol/L (98-107) Carbon Dioxide Level 25 mmol/L (21-32) Anion Gap 7 (6-14) Blood Urea Nitrogen 15 mg/dL (7-20) Creatinine 0.6 mg/dL (0.6-1.0) Estimated GFR (Cockcroft-Gault) 99.4 BUN/Creatinine Ratio 25 (6-20) Glucose Level 113 mg/dL (70-99) Calcium Level 7.7 mg/dL (8.5-10.1) Total Bilirubin 0.4 mg/dL (0.2-1.0) Aspartate Amino Transf (AST/SGOT) 25 U/L (15-37) Alanine Aminotransferase (ALT/SGPT) 16 U/L (14-59) Alkaline Phosphatase 44 U/L (46-116) Total Protein 5.1 g/dL (6.4-8.2) Albumin 1.8 g/dL (3.4-5.0) Albumin/Globulin Ratio 0.5 (1.0-1.7) Microbiology 04/20/18 Blood Culture - Final, Complete NO GROWTH AFTER 5 DAYS Medications Current Medications Sodium Chloride 1,000 ml @ 100 mls/hr Q10H IV Last administered on 04/20/18at 18:17; Start 04/19/18 at 21:00; Stop 04/21/18 at 14:28; Status DC Morphine Sulfate (Morphine Sulfate) 2 mg PRN Q4HRS PRN IV SEVERE PAIN Last administered on 04/20/18at 10:04; Start 04/19/18 at 21:00; Stop 04/20/18 at 18:10 ; Status DC Ondansetron HCl (Zofran) 4 mg PRN Q6HRS PRN IV NAUSEA/VOMITING 1ST CHOICE Last administered on 04/20/18at 10:04; Start 04/19/18 at 21:00 Sodium Chloride 1,000 ml @ 1,000 mls/hr 1X ONCE IV Last administered on at 10:05; Start 04/20/18 at 08:15; Stop 04/20/18 at 09:14; Status DC Ceftriaxone Sodium (Rocephin) 1 gm Q24H IVP Last administered on 04/21/18at 07: 37; Start 04/20/18 at 09:00; Stop 04/21/18 at 18:05; Status DC Metronidazole 100 ml @ 100 mls/hr Q8HRS IV Last administered on 04/23/18at 13: 18; Start 04/20/18 at 14:00; Stop 04/23/18 at 16:46; Status DC Propofol 20 ml @ As Directed STK-MED ONCE IV ; Start 04/20/18 at 15:46; Stop at 15:48; Status DC Lidocaine HCl (Lidocaine Pf 2% Vial) 5 ml STK-MED ONCE .ROUTE ; Start 04/20/18 at 15:46; Stop 04/20/18 at 15:48; Status DC Dexamethasone Sodium Phosphate (Decadron) 20 mg STK-MED ONCE .ROUTE ; Start at 15:47; Stop 04/20/18 at 15:48; Status DC Ondansetron HCl (Zofran) 4 mg STK-MED ONCE .ROUTE ; Start 04/20/18 at 15:47; Stop 04/20/18 at 15:48; Status DC Rocuronium [place] (Zemuron) 50 mg STK-MED ONCE .ROUTE ; Start 04/20/18 at 15:47 ; Stop 04/20/18 at 15:49; Status DC Fentanyl Citrate (Fentanyl 2ml Vial) 100 mcg STK-MED ONCE .ROUTE ; Start at 15:47; Stop 04/20/18 at 15:49; Status DC Bupivacaine HCl/ Epinephrine Bitart (Sensorcain-Mpf Epi 0.5%-[id number]) 30 ml STK -MED ONCE .ROUTE Last administered on 04/20/18at 17:02; Start 04/20/18 at 16:22 ; Stop 04/20/18 at 16:24; Status DC Sevoflurane (Ultane) 30 ml STK-MED ONCE IH ; Start 04/20/18 at 16:35; Stop 04/20 at 16:36; Status DC Succinylcholine Chloride (Anectine) 200 mg STK-MED ONCE .ROUTE ; Start 04/20/18 at 16:38; Stop 04/20/18 at 16:40; Status DC Glycopyrrolate (Robinul) 1 mg STK-MED ONCE .ROUTE ; Start 04/20/18 at 17:08; Stop 04/20/18 at 17:09; Status DC Neostigmine Methylsulfate (Bloxiverz) 10 mg STK-MED ONCE .ROUTE ; Start at 17:08; Stop 04/20/18 at 17:10; Status DC Sevoflurane (Ultane) 60 ml STK-MED ONCE IH ; Start 04/20/18 at 17:26; Stop 04/20 at 17:28; Status DC Enoxaparin Sodium (Lovenox 40mg Syringe) 40 mg Q24H SQ Last administered on at 08:32; Start 04/21/18 at 09:00 Sodium Chloride (Normal Saline Flush) 3 ml QSHIFT PRN IV AFTER MEDS AND BLOOD DRAWS; Start 04/20/18 at 18:15 Ringer's Solution 1,000 ml @ 100 mls/hr Q10H IV Last administered on at 06:00; Start 04/20/18 at 19:00; Stop 04/21/18 at 14:28; Status DC Morphine Sulfate 30 ml @ 0 mls/hr CONT PRN PRN IV PER PROTOCOL Last administered on 04/20/18at 19:03; Start 04/20/18 at 18:15; Stop 04/25/18 at 10:19 ; Status DC Docusate Sodium (Colace) 100 mg BID PO Last administered on 04/21/18at 07:36; Start 04/20/18 at 21:00; Stop 04/22/18 at 19:46; Status DC Ondansetron HCl (Zofran) 4 mg PRN Q6HRS PRN IV NAUESA, 1ST CHOICE; Start at 18:15; Status UNV Amino Acids/ Glycerin/ Electrolytes 1,000 ml @ 80 mls/hr [id number] IV Last administered on 04/26/18at 05:13; Start 04/20/18 at 21:00; Stop 04/26/18 at 09:55 ; Status DC Fentanyl Citrate (Fentanyl 2ml Vial) 100 mcg STK-MED ONCE .ROUTE ; Start at 18:52; Stop 04/20/18 at 18:54; Status DC Ondansetron HCl (Zofran) 4 mg PRN Q6HRS PRN IV NAUSEA/VOMITING; Start 04/20/18 at 19:00; Stop 04/20/18 at 23:59; Status DC Fentanyl Citrate (Fentanyl 2ml Vial) 25 mcg PRN Q5MIN PRN IV MILD PAIN Last administered on 04/20/18at 19:30; Start 04/20/18 at 19:00; Stop 04/20/18 at 23:59 ; Status DC Fentanyl Citrate (Fentanyl 2ml Vial) 50 mcg PRN Q5MIN PRN IV MODERATE TO SEVERE PAIN; Start 04/20/18 at 19:00; Stop 04/20/18 at 23:59; Status DC Morphine Sulfate (Morphine Sulfate) 1 mg PRN Q10MIN PRN IV SEVERE PAIN; Start 04/20/18 at 19:00; Stop 04/20/18 at 23:59; Status DC Ringer's Solution 1,000 ml @ 30 mls/hr Q24H IV ; Start 04/20/18 at 19:00; Stop 04/20/18 at 23:59; Status DC Lidocaine HCl (Xylocaine-Mpf 1% 2ml Vial) 2 ml PRN 1X PRN ID PRIOR TO IV START ; Start 04/20/18 at 19:00; Stop 04/20/18 at 23:59; Status DC Hydromorphone HCl (Dilaudid) 0.5 mg PRN Q10MIN PRN IV SEV PAIN, Second choice; Start 04/20/18 at 19:00; Stop 04/20/18 at 23:59; Status DC Prochlorperazine Edisylate (Compazine) 5 mg PACU PRN PRN IV NAUSEA, MRX1; Start 04/20/18 at 19:00; Stop 04/20/18 at 23:59; Status DC Acetaminophen (Tylenol) 650 mg 1X PRN PRN PO PRE-TRANSFUSION; Start 04/21/18 at 13:15; Stop 04/27/18 at 11:25; Status DC Sodium Chloride 1,000 ml @ 25 mls/hr Q24H PRN IV 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; Start 04/21/18 at 14:30; Stop 04/22/18 at 19:46; Status DC Piperacillin Sod/ Tazobactam Sod 3.375 gm/Sodium Chloride 50 ml @ 100 mls/hr Q6HRS IV Last administered on 04/28/18at 05:52; Start 04/21/18 at 18:30; Stop at 10:06; Status DC Saliva Substitute (Biotene Moisturizing Mouth) 2 spray PRN Q15MIN PRN PO DRY MOUTH Last administered on 04/25/18at 22:18; Start 04/22/18 at 11:45 Bisacodyl (Dulcolax Supp) 10 mg PRN DAILY PRN DE CONSTIPATION; Start 04/22/18 at 19:45 Albuterol/ Ipratropium (Duoneb) 3 ml 1X ONCE NEB Last administered on at 13:00; Start 04/23/18 at 13:00; Stop 04/23/18 at 13:01; Status DC Albuterol/ Ipratropium (Duoneb) 3 ml RTQID NEB Last administered on 04/28/18at 14:51; Start 04/23/18 at 16:00 Budesonide (Pulmicort) 0.5 mg RTBID NEB Last administered on 04/28/18at 14:51; Start 04/23/18 at 20:00 Budesonide (Pulmicort) 0.5 mg 1X ONCE NEB ; Start 04/23/18 at 13:00; Stop 04/23 at 13:01; Status DC Guaifenesin (Robitussin Dm) 10 ml PRN Q6HRS PRN PO COUGH 1ST CHOICE; Start at 11:00 Codeine Sulfate (Codeine) 30 mg PRN Q6HRS PRN PO cough 2ND CHOICE; Start at 11:00 Acetaminophen/ Hydrocodone Bitart (Lortab 7.5-325/ 15ml Oral Solution) 15 ml PRN Q6HRS PRN PEG PAIN Last administered on 04/26/18at 01:10; Start 04/25/18 at 10:30 Iodixanol (Visipaque 320) 50 ml STK-MED ONCE .ROUTE ; Start 04/25/18 at 15:24; Stop 04/25/18 at 15:26; Status DC Lidocaine/Sodium Bicarbonate (Buffered Lidocaine 1%) 3 ml 1X ONCE INJ ; Start 04/25/18 at 16:00; Stop 04/25/18 at 16:02; Status DC Lidocaine/Sodium Bicarbonate (Buffered Lidocaine 1%) 3 ml STK-MED ONCE .ROUTE ; Start 04/25/18 at 15:54; Stop 04/25/18 at 15:56; Status DC Lidocaine/Sodium Bicarbonate (Buffered Lidocaine 1%) 1 ml 1X ONCE INJ Last administered on 04/25/18at 16:03; Start 04/25/18 at 16:00; Stop 04/25/18 at 16:02 ; Status DC Iodixanol (Visipaque 320) 10 ml 1X ONCE IV Last administered on 04/25/18at 16: 03; Start 04/25/18 at 16:00; Stop 04/25/18 at 16:02; Status DC Throat Lozenges (Chloraseptic) 1 spray PRN Q2HR PRN PO SORE THROAT Last administered on 04/25/18at 22:18; Start 04/25/18 at 20:30 Amoxicillin/ Clavulanate Potassium (Augmentin 875/ 125mg) 1 tab BID PO ; Start 04/28/18 at 21:00; Stop 04/28/18 at 21:00; Status DC Amoxicillin/ Clavulanate Potassium (Augmentin 875/ 125mg) 1 tab 1X ONCE PO Last administered on 04/28/18at 12:14; Start 04/28/18 at 10:15; Stop 04/28/18 at 10:16; Status DC Amoxicillin/ Clavulanate Potassium (Augmentin 400-57mg/5ml Susp) 10 ml Q12HR PEG ; Start 04/28/18 at 21:00 Active Scripts Active Reported Hydrocodone-Acetamn 7.5-325/15 (Hydrocodone/Acetaminophen) 15 Ml Solution 15 Ml PO Q4HRS Plaquenil (Hydroxychloroquine Sulfate) 200 Mg Tablet 200 Mg PO BID Sulindac 200 Mg Tablet 200 Mg PO BID Ibuprofen 600 Mg Tablet 600 Mg PO PRN Q6HRS PRN Vitals/I & O Vital Sign - Last 24 Hours 04/27/18 04/27/18 04/27/18 04/27/18 19:00 19:53 19:54 20:37 Temp 98.5 98.5 Pulse 101 Resp 22 B/P (MAP) 125/76 (92) Pulse Ox 98 94 94 O2 Delivery Nasal Cannula Nasal Cannula Room Air O2 Flow Rate 1.5 1.5 1.5 04/27/18 04/28/18 04/28/18 04/28/18 23:00 03:00 06:11 06:11 Temp 98.5 98.9 98.5 98.9 Pulse 105 92 Resp 20 20 B/P (MAP) 123/72 (89) 129/57 (81) Pulse Ox 96 98 94 94 O2 Delivery Nasal Cannula Nasal Cannula O2 Flow Rate 1.5 1.5 04/28/18 04/28/18 04/28/18 04/28/18 07:00 08:00 11:00 12:02 Temp 98.3 98.6 98.3 98.6 Pulse 96 89 Resp 18 18 B/P (MAP) 123/71 (88) 128/70 (89) Pulse Ox 97 98 98 O2 Delivery Room Air Nasal Cannula Room Air Nasal Cannula O2 Flow Rate 2.0 1.5 04/28/18 14:53 O2 Delivery Room Air Intake and Output 04/27/18 04/27/18 04/28/18 15:01 23:01 07:01 Intake Total 0 ml Output Total 475 ml 250 ml Balance -475 ml -250 ml Nutrition Consultation Dietary Evaluation: Recommendations by RD: Increase Calorie Intake Comments: TF adjustment: Jevity 1.5 @ goal rate 55 ml/hr w/250 ml water flushes q6 hrs Expected Outcomes/Goals: to meet > 75% est nutr needs via tube feedings - met, goal ongoing Interpretation of weight loss: >5% in 1 month Malnutrition Findings: Food and Nutrition Intake (Sev: <50% est energy req 5days Weight Status: Overweight AYAZ DALTON MD Apr 28, 2018 15:29
[2018-04-28 19:00] VITALS: BP 124/68
--- NOTE | 2018-04-28 20:30 | NUR ---
PEG tube feeding clamped at this time. Patient ambulated with walker from bedside to nurses station with minimal assistance. Patient tolerated well, denies dizziness, N/V or need to sit. Ambulated back to room, offered BSC at this time. Ambulated back to bed. Will continue to monitor closely. RN Encouraged pt to use IS while up.
[2018-04-28] MEDS: AMOXICILLIN/CLAV 400MG/57MG 5 ML ORAL.SUSP. PEG SCH (20:34)
[2018-04-28] MEDS: ACETAMINOPHEN 650 MG/20.3 ML SOLUTION. PEG PRN (20:34)
[2018-04-28] MEDS ORDERED: AMOXICILLIN/K CLAV 875/125MG TABLET. PO SCH (21:00)
[2018-04-28 23:00] VITALS: BP 116/63
[2018-04-29 03:00] VITALS: BP 136/80
[2018-04-29 05:49] LABS: BASO % 0 % (0-3); EOS # 0.4 x10^3/uL (0.0-0.7); EOS % 4 % (0-3); HEMOGLOBIN 7.2 g/dL (12.0-15.5); LYMPH # 0.7 x10^3/uL (1.0-4.8); LYMPH % 7 % (24-48); MEAN CORPUSCULAR HEMOGLOBIN 22 pg (25-35); MEAN CORPUSCULAR HGB CONC 31 g/dL (31-37); MEAN CORPUSCULAR VOLUME 69 fL (79-100); MONO # 0.5 x10^3/uL (0.0-1.1); MONO % 6 % (0-9); NEUT % 83 % (31-73); PLATELET COUNT 130 x10^3/uL (140-400); RED BLOOD COUNT 3.33 x10^6/uL (3.50-5.40); RED CELL DISTRIBUTION WIDTH 34.6 % (11.5-14.5); WHITE BLOOD COUNT 9.7 x10^3/uL (4.0-11.0)
[2018-04-29 06:08] LABS: ALBUMIN 1.6 g/dL (3.4-5.0); ALBUMIN/GLOBULIN RATIO 0.5 (1.0-1.7); CALCIUM 7.7 mg/dL (8.5-10.1); CREATININE 0.5 mg/dL (0.6-1.0); GFR 122.7; POTASSIUM 3.4 mmol/L (3.5-5.1); TOTAL BILIRUBIN 0.3 mg/dL (0.2-1.0); TOTAL PROTEIN 5.1 g/dL (6.4-8.2)
[2018-04-29 07:40] VITALS: BP 144/82
[2018-04-29] MEDS: BUDESONIDE 0.5 MG/2 ML NEBU. NEB SCH ×2 (07:40→19:45)
[2018-04-29] MEDS: IPRATRPIUM/ALBUTEROL 0.5/2.5MG 3 ML NEBU. NEB SCH ×4 (07:40→19:45)
[2018-04-29] MEDS ORDERED: POTASSIUM CHLORIDE 20 MEQ/15 ML ORAL LIQUID. PEG ONE ×2 (08:45→17:30)
[2018-04-29] MEDS: ACETAMINOPHEN 650 MG/20.3 ML SOLUTION. PEG PRN (09:33)
[2018-04-29] MEDS: ENOXAPARIN 40 MG/0.4 ML SYRINGE. SQ SCH (09:33)
[2018-04-29] MEDS: AMOXICILLIN/CLAV 400MG/57MG 5 ML ORAL.SUSP. PEG SCH ×2 (09:34→21:25)
--- NOTE | 2018-04-29 10:05 | PDOC ---
JANET ALCANTARA TUTORIAL LABORATORY SUPERVISOR 04/29/18 1005: SURGICAL PROGRESS NOTE Subjective + stools tolerating tube feeds dc planning for skilled Vital Signs Vital Signs Date Time Temp Pulse Resp B/P (MAP) Pulse Ox O2 Delivery O2 Flow Rate FiO2 04/29/18 07:43 95 Room Air 04/29/18 07:40 98.6 97 28 144/82 (102) 98.6 04/28/18 12:02 1.5 I&O Intake and Output 04/29/18 07:01 Intake Total 1030 ml Output Total 150 ml Balance 880 ml Intake Oral 0 ml Tube Feeding 780 ml Other 250 ml Output Urine Total 150 ml Gastric Drainage Total 0 ml # Voids 2 # Bowel Movements 3 General: Alert, Oriented X3, Cooperative, No acute distress Abdomen: Soft, Other (g tube in place) Labs Laboratory Tests Test 04/29/18 05:30 White Blood Count 9.7 x10^3/uL (4.0-11.0) Red Blood Count 3.33 x10^6/uL (3.50-5.40) Hemoglobin 7.2 g/dL (12.0-15.5) Hematocrit 23.0 % (36.0-47.0) Mean Corpuscular Volume 69 fL (79-100) Mean Corpuscular Hemoglobin 22 pg (25-35) Mean Corpuscular Hemoglobin Concent 31 g/dL (31-37) Red Cell Distribution Width 34.6 % (11.5-14.5) Platelet Count 130 x10^3/uL (140-400) Neutrophils (%) (Auto) 83 % (31-73) Lymphocytes (%) (Auto) 7 % (24-48) Monocytes (%) (Auto) 6 % (0-9) Eosinophils (%) (Auto) 4 % (0-3) Basophils (%) (Auto) 0 % (0-3) Neutrophils # (Auto) 8.0 x10^3uL (1.8-7.7) Lymphocytes # (Auto) 0.7 x10^3/uL (1.0-4.8) Monocytes # (Auto) 0.5 x10^3/uL (0.0-1.1) Eosinophils # (Auto) 0.4 x10^3/uL (0.0-0.7) Basophils # (Auto) 0.0 x10^3/uL (0.0-0.2) Sodium Level 140 mmol/L (136-145) Potassium Level 3.4 mmol/L (3.5-5.1) Chloride Level 107 mmol/L (98-107) Carbon Dioxide Level 26 mmol/L (21-32) Anion Gap 7 (6-14) Blood Urea Nitrogen 12 mg/dL (7-20) Creatinine 0.5 mg/dL (0.6-1.0) Estimated GFR (Cockcroft-Gault) 122.7 BUN/Creatinine Ratio 24 (6-20) Glucose Level 116 mg/dL (70-99) Calcium Level 7.7 mg/dL (8.5-10.1) Total Bilirubin 0.3 mg/dL (0.2-1.0) Aspartate Amino Transf (AST/SGOT) 16 U/L (15-37) Alanine Aminotransferase (ALT/SGPT) 14 U/L (14-59) Alkaline Phosphatase 47 U/L (46-116) Total Protein 5.1 g/dL (6.4-8.2) Albumin 1.6 g/dL (3.4-5.0) Albumin/Globulin Ratio 0.5 (1.0-1.7) Laboratory Tests Test 04/29/18 05:30 White Blood Count 9.7 x10^3/uL (4.0-11.0) Red Blood Count 3.33 x10^6/uL (3.50-5.40) Hemoglobin 7.2 g/dL (12.0-15.5) Hematocrit 23.0 % (36.0-47.0) Mean Corpuscular Volume 69 fL (79-100) Mean Corpuscular Hemoglobin 22 pg (25-35) Mean Corpuscular Hemoglobin Concent 31 g/dL (31-37) Red Cell Distribution Width 34.6 % (11.5-14.5) Platelet Count 130 x10^3/uL (140-400) Neutrophils (%) (Auto) 83 % (31-73) Lymphocytes (%) (Auto) 7 % (24-48) Monocytes (%) (Auto) 6 % (0-9) Eosinophils (%) (Auto) 4 % (0-3) Basophils (%) (Auto) 0 % (0-3) Neutrophils # (Auto) 8.0 x10^3uL (1.8-7.7) Lymphocytes # (Auto) 0.7 x10^3/uL (1.0-4.8) Monocytes # (Auto) 0.5 x10^3/uL (0.0-1.1) Eosinophils # (Auto) 0.4 x10^3/uL (0.0-0.7) Basophils # (Auto) 0.0 x10^3/uL (0.0-0.2) Sodium Level 140 mmol/L (136-145) Potassium Level 3.4 mmol/L (3.5-5.1) Chloride Level 107 mmol/L (98-107) Carbon Dioxide Level 26 mmol/L (21-32) Anion Gap 7 (6-14) Blood Urea Nitrogen 12 mg/dL (7-20) Creatinine 0.5 mg/dL (0.6-1.0) Estimated GFR (Cockcroft-Gault) 122.7 BUN/Creatinine Ratio 24 (6-20) Glucose Level 116 mg/dL (70-99) Calcium Level 7.7 mg/dL (8.5-10.1) Total Bilirubin 0.3 mg/dL (0.2-1.0) Aspartate Amino Transf (AST/SGOT) 16 U/L (15-37) Alanine Aminotransferase (ALT/SGPT) 14 U/L (14-59) Alkaline Phosphatase 47 U/L (46-116) Total Protein 5.1 g/dL (6.4-8.2) Albumin 1.6 g/dL (3.4-5.0) Albumin/Globulin Ratio 0.5 (1.0-1.7) Problem List s/p g tube no additional surgical needs LASHAUN IZQUIERDO MD 04/30/18 0841: SURGICAL PROGRESS NOTE Assessment/Plan Agree with Kinsey's assessment and plan. JANET ALCANTARA APRN Apr 29, 2018 10:05 LASHAUN IZQUIERDO MD Apr 30, 2018 08:41
[2018-04-29 11:00] VITALS: BP 110/68
--- NOTE | 2018-04-29 11:39 | PDOC ---
PROGRESS NOTES Chief Complaint Chief Complaint aspriation pneumonitis, pneumonia, on zosyn, ongoing cough dysphagia, failed swallow eval RECENT PEG tube placement and free intraperitoneal gas and fluid possible mild hydronephrosis and right hydroureter hypokalemia anemia HX esophageal ca new dx peritonitis severe malnutrition, POA tolerating tube feeds replace k dc planning for skilled bed History of Present Illness History of Present Illness doing well, still coughing, weak str. better, up to chair, no events cough is limited advancing tube feeds, still weak, will need SNU she feels better with breathing tx, s/p surgical placement of PEG Tube feeds now at goal, off PPN v Vitals Vitals Vital Signs Date Time Temp Pulse Resp B/P (MAP) Pulse Ox O2 Delivery O2 Flow Rate FiO2 04/29/18 07:43 95 Room Air 04/29/18 07:40 98.6 97 28 144/82 (102) 98.6 04/28/18 12:02 1.5 Physical Exam Physical Exam GENERAL: NAD, Alert HEENT: PERRL, OC/OP NECK: Supple, no JVD, no LN LUNGS: Clear HEART: S1S2, no gallop, no murmur ABD: Soft, NT, no organomegaly, no rebound EXT: No edema, no cyanosis MEDICAL NURSE: Alert, 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, no focal neurologic deficit SKIN: No rash IV: ok General: Alert, Oriented X3, Cooperative, No acute distress Heart: Regular rate, Normal S1, Normal S2, No murmurs Lungs: Clear Abdomen: Soft, Other (g tube in place) Extremities: No clubbing, No cyanosis, No edema Skin: No rashes, No breakdown Labs LABS Laboratory Tests Test 04/29/18 05:30 White Blood Count 9.7 x10^3/uL (4.0-11.0) Red Blood Count 3.33 x10^6/uL (3.50-5.40) Hemoglobin 7.2 g/dL (12.0-15.5) Hematocrit 23.0 % (36.0-47.0) Mean Corpuscular Volume 69 fL (79-100) Mean Corpuscular Hemoglobin 22 pg (25-35) Mean Corpuscular Hemoglobin Concent 31 g/dL (31-37) Red Cell Distribution Width 34.6 % (11.5-14.5) Platelet Count 130 x10^3/uL (140-400) Neutrophils (%) (Auto) 83 % (31-73) Lymphocytes (%) (Auto) 7 % (24-48) Monocytes (%) (Auto) 6 % (0-9) Eosinophils (%) (Auto) 4 % (0-3) Basophils (%) (Auto) 0 % (0-3) Neutrophils # (Auto) 8.0 x10^3uL (1.8-7.7) Lymphocytes # (Auto) 0.7 x10^3/uL (1.0-4.8) Monocytes # (Auto) 0.5 x10^3/uL (0.0-1.1) Eosinophils # (Auto) 0.4 x10^3/uL (0.0-0.7) Basophils # (Auto) 0.0 x10^3/uL (0.0-0.2) Sodium Level 140 mmol/L (136-145) Potassium Level 3.4 mmol/L (3.5-5.1) Chloride Level 107 mmol/L (98-107) Carbon Dioxide Level 26 mmol/L (21-32) Anion Gap 7 (6-14) Blood Urea Nitrogen 12 mg/dL (7-20) Creatinine 0.5 mg/dL (0.6-1.0) Estimated GFR (Cockcroft-Gault) 122.7 BUN/Creatinine Ratio 24 (6-20) Glucose Level 116 mg/dL (70-99) Calcium Level 7.7 mg/dL (8.5-10.1) Total Bilirubin 0.3 mg/dL (0.2-1.0) Aspartate Amino Transf (AST/SGOT) 16 U/L (15-37) Alanine Aminotransferase (ALT/SGPT) 14 U/L (14-59) Alkaline Phosphatase 47 U/L (46-116) Total Protein 5.1 g/dL (6.4-8.2) Albumin 1.6 g/dL (3.4-5.0) Albumin/Globulin Ratio 0.5 (1.0-1.7) Comment Review of Relevant I have reviewed the following items herbie (where applicable) has been applied. Labs Laboratory Tests Test 04/29/18 05:30 White Blood Count 9.7 x10^3/uL (4.0-11.0) Red Blood Count 3.33 x10^6/uL (3.50-5.40) Hemoglobin 7.2 g/dL (12.0-15.5) Hematocrit 23.0 % (36.0-47.0) Mean Corpuscular Volume 69 fL (79-100) Mean Corpuscular Hemoglobin 22 pg (25-35) Mean Corpuscular Hemoglobin Concent 31 g/dL (31-37) Red Cell Distribution Width 34.6 % (11.5-14.5) Platelet Count 130 x10^3/uL (140-400) Neutrophils (%) (Auto) 83 % (31-73) Lymphocytes (%) (Auto) 7 % (24-48) Monocytes (%) (Auto) 6 % (0-9) Eosinophils (%) (Auto) 4 % (0-3) Basophils (%) (Auto) 0 % (0-3) Neutrophils # (Auto) 8.0 x10^3uL (1.8-7.7) Lymphocytes # (Auto) 0.7 x10^3/uL (1.0-4.8) Monocytes # (Auto) 0.5 x10^3/uL (0.0-1.1) Eosinophils # (Auto) 0.4 x10^3/uL (0.0-0.7) Basophils # (Auto) 0.0 x10^3/uL (0.0-0.2) Sodium Level 140 mmol/L (136-145) Potassium Level 3.4 mmol/L (3.5-5.1) Chloride Level 107 mmol/L (98-107) Carbon Dioxide Level 26 mmol/L (21-32) Anion Gap 7 (6-14) Blood Urea Nitrogen 12 mg/dL (7-20) Creatinine 0.5 mg/dL (0.6-1.0) Estimated GFR (Cockcroft-Gault) 122.7 BUN/Creatinine Ratio 24 (6-20) Glucose Level 116 mg/dL (70-99) Calcium Level 7.7 mg/dL (8.5-10.1) Total Bilirubin 0.3 mg/dL (0.2-1.0) Aspartate Amino Transf (AST/SGOT) 16 U/L (15-37) Alanine Aminotransferase (ALT/SGPT) 14 U/L (14-59) Alkaline Phosphatase 47 U/L (46-116) Total Protein 5.1 g/dL (6.4-8.2) Albumin 1.6 g/dL (3.4-5.0) Albumin/Globulin Ratio 0.5 (1.0-1.7) Laboratory Tests Test 04/29/18 05:30 White Blood Count 9.7 x10^3/uL (4.0-11.0) Red Blood Count 3.33 x10^6/uL (3.50-5.40) Hemoglobin 7.2 g/dL (12.0-15.5) Hematocrit 23.0 % (36.0-47.0) Mean Corpuscular Volume 69 fL (79-100) Mean Corpuscular Hemoglobin 22 pg (25-35) Mean Corpuscular Hemoglobin Concent 31 g/dL (31-37) Red Cell Distribution Width 34.6 % (11.5-14.5) Platelet Count 130 x10^3/uL (140-400) Neutrophils (%) (Auto) 83 % (31-73) Lymphocytes (%) (Auto) 7 % (24-48) Monocytes (%) (Auto) 6 % (0-9) Eosinophils (%) (Auto) 4 % (0-3) Basophils (%) (Auto) 0 % (0-3) Neutrophils # (Auto) 8.0 x10^3uL (1.8-7.7) Lymphocytes # (Auto) 0.7 x10^3/uL (1.0-4.8) Monocytes # (Auto) 0.5 x10^3/uL (0.0-1.1) Eosinophils # (Auto) 0.4 x10^3/uL (0.0-0.7) Basophils # (Auto) 0.0 x10^3/uL (0.0-0.2) Sodium Level 140 mmol/L (136-145) Potassium Level 3.4 mmol/L (3.5-5.1) Chloride Level 107 mmol/L (98-107) Carbon Dioxide Level 26 mmol/L (21-32) Anion Gap 7 (6-14) Blood Urea Nitrogen 12 mg/dL (7-20) Creatinine 0.5 mg/dL (0.6-1.0) Estimated GFR (Cockcroft-Gault) 122.7 BUN/Creatinine Ratio 24 (6-20) Glucose Level 116 mg/dL (70-99) Calcium Level 7.7 mg/dL (8.5-10.1) Total Bilirubin 0.3 mg/dL (0.2-1.0) Aspartate Amino Transf (AST/SGOT) 16 U/L (15-37) Alanine Aminotransferase (ALT/SGPT) 14 U/L (14-59) Alkaline Phosphatase 47 U/L (46-116) Total Protein 5.1 g/dL (6.4-8.2) Albumin 1.6 g/dL (3.4-5.0) Albumin/Globulin Ratio 0.5 (1.0-1.7) Microbiology 04/20/18 Blood Culture - Final, Complete NO GROWTH AFTER 5 DAYS Medications Current Medications Sodium Chloride 1,000 ml @ 100 mls/hr Q10H IV Last administered on 04/20/18at 18:17; Start 04/19/18 at 21:00; Stop 04/21/18 at 14:28; Status DC Morphine Sulfate (Morphine Sulfate) 2 mg PRN Q4HRS PRN IV SEVERE PAIN Last administered on 04/20/18at 10:04; Start 04/19/18 at 21:00; Stop 04/20/18 at 18:10 ; Status DC Ondansetron HCl (Zofran) 4 mg PRN Q6HRS PRN IV NAUSEA/VOMITING 1ST CHOICE Last administered on 04/20/18at 10:04; Start 04/19/18 at 21:00 Sodium Chloride 1,000 ml @ 1,000 mls/hr 1X ONCE IV Last administered on at 10:05; Start 04/20/18 at 08:15; Stop 04/20/18 at 09:14; Status DC Ceftriaxone Sodium (Rocephin) 1 gm Q24H IVP Last administered on 04/21/18at 07: 37; Start 04/20/18 at 09:00; Stop 04/21/18 at 18:05; Status DC Metronidazole 100 ml @ 100 mls/hr Q8HRS IV Last administered on 04/23/18at 13: 18; Start 04/20/18 at 14:00; Stop 04/23/18 at 16:46; Status DC Propofol 20 ml @ As Directed STK-MED ONCE IV ; Start 04/20/18 at 15:46; Stop at 15:48; Status DC Lidocaine HCl (Lidocaine Pf 2% Vial) 5 ml STK-MED ONCE .ROUTE ; Start 04/20/18 at 15:46; Stop 04/20/18 at 15:48; Status DC Dexamethasone Sodium Phosphate (Decadron) 20 mg STK-MED ONCE .ROUTE ; Start at 15:47; Stop 04/20/18 at 15:48; Status DC Ondansetron HCl (Zofran) 4 mg STK-MED ONCE .ROUTE ; Start 04/20/18 at 15:47; Stop 04/20/18 at 15:48; Status DC Rocuronium [place] (Zemuron) 50 mg STK-MED ONCE .ROUTE ; Start 04/20/18 at 15:47 ; Stop 04/20/18 at 15:49; Status DC Fentanyl Citrate (Fentanyl 2ml Vial) 100 mcg STK-MED ONCE .ROUTE ; Start at 15:47; Stop 04/20/18 at 15:49; Status DC Bupivacaine HCl/ Epinephrine Bitart (Sensorcain-Mpf Epi 0.5%-[id number]) 30 ml STK -MED ONCE .ROUTE Last administered on 04/20/18at 17:02; Start 04/20/18 at 16:22 ; Stop 04/20/18 at 16:24; Status DC Sevoflurane (Ultane) 30 ml STK-MED ONCE IH ; Start 04/20/18 at 16:35; Stop 04/20 at 16:36; Status DC Succinylcholine Chloride (Anectine) 200 mg STK-MED ONCE .ROUTE ; Start 04/20/18 at 16:38; Stop 04/20/18 at 16:40; Status DC Glycopyrrolate (Robinul) 1 mg STK-MED ONCE .ROUTE ; Start 04/20/18 at 17:08; Stop 04/20/18 at 17:09; Status DC Neostigmine Methylsulfate (Bloxiverz) 10 mg STK-MED ONCE .ROUTE ; Start at 17:08; Stop 04/20/18 at 17:10; Status DC Sevoflurane (Ultane) 60 ml STK-MED ONCE IH ; Start 04/20/18 at 17:26; Stop 04/20 at 17:28; Status DC Enoxaparin Sodium (Lovenox 40mg Syringe) 40 mg Q24H SQ Last administered on at 09:33; Start 04/21/18 at 09:00 Sodium Chloride (Normal Saline Flush) 3 ml QSHIFT PRN IV AFTER MEDS AND BLOOD DRAWS; Start 04/20/18 at 18:15 Ringer's Solution 1,000 ml @ 100 mls/hr Q10H IV Last administered on at 06:00; Start 04/20/18 at 19:00; Stop 04/21/18 at 14:28; Status DC Morphine Sulfate 30 ml @ 0 mls/hr CONT PRN PRN IV PER PROTOCOL Last administered on 04/20/18at 19:03; Start 04/20/18 at 18:15; Stop 04/25/18 at 10:19 ; Status DC Docusate Sodium (Colace) 100 mg BID PO Last administered on 04/21/18at 07:36; Start 04/20/18 at 21:00; Stop 04/22/18 at 19:46; Status DC Ondansetron HCl (Zofran) 4 mg PRN Q6HRS PRN IV NAUESA, 1ST CHOICE; Start at 18:15; Status UNV Amino Acids/ Glycerin/ Electrolytes 1,000 ml @ 80 mls/hr [id number] IV Last administered on 04/26/18at 05:13; Start 04/20/18 at 21:00; Stop 04/26/18 at 09:55 ; Status DC Fentanyl Citrate (Fentanyl 2ml Vial) 100 mcg STK-MED ONCE .ROUTE ; Start at 18:52; Stop 04/20/18 at 18:54; Status DC Ondansetron HCl (Zofran) 4 mg PRN Q6HRS PRN IV NAUSEA/VOMITING; Start 04/20/18 at 19:00; Stop 04/20/18 at 23:59; Status DC Fentanyl Citrate (Fentanyl 2ml Vial) 25 mcg PRN Q5MIN PRN IV MILD PAIN Last administered on 04/20/18at 19:30; Start 04/20/18 at 19:00; Stop 04/20/18 at 23:59 ; Status DC Fentanyl Citrate (Fentanyl 2ml Vial) 50 mcg PRN Q5MIN PRN IV MODERATE TO SEVERE PAIN; Start 04/20/18 at 19:00; Stop 04/20/18 at 23:59; Status DC Morphine Sulfate (Morphine Sulfate) 1 mg PRN Q10MIN PRN IV SEVERE PAIN; Start 04/20/18 at 19:00; Stop 04/20/18 at 23:59; Status DC Ringer's Solution 1,000 ml @ 30 mls/hr Q24H IV ; Start 04/20/18 at 19:00; Stop 04/20/18 at 23:59; Status DC Lidocaine HCl (Xylocaine-Mpf 1% 2ml Vial) 2 ml PRN 1X PRN ID PRIOR TO IV START ; Start 04/20/18 at 19:00; Stop 04/20/18 at 23:59; Status DC Hydromorphone HCl (Dilaudid) 0.5 mg PRN Q10MIN PRN IV SEV PAIN, Second choice; Start 04/20/18 at 19:00; Stop 04/20/18 at 23:59; Status DC Prochlorperazine Edisylate (Compazine) 5 mg PACU PRN PRN IV NAUSEA, MRX1; Start 04/20/18 at 19:00; Stop 04/20/18 at 23:59; Status DC Acetaminophen (Tylenol) 650 mg 1X PRN PRN PO PRE-TRANSFUSION; Start 04/21/18 at 13:15; Stop 04/27/18 at 11:25; Status DC Sodium Chloride 1,000 ml @ 25 mls/hr Q24H PRN IV SLASHER HAND carrier; Start 04/21/18 at 14:30; Stop 04/22/18 at 19:46; Status DC Piperacillin Sod/ Tazobactam Sod 3.375 gm/Sodium Chloride 50 ml @ 100 mls/hr Q6HRS IV Last administered on 04/28/18at 05:52; Start 04/21/18 at 18:30; Stop at 10:06; Status DC Saliva Substitute (Biotene Moisturizing Mouth) 2 spray PRN Q15MIN PRN PO DRY MOUTH Last administered on 04/25/18at 22:18; Start 04/22/18 at 11:45 Bisacodyl (Dulcolax Supp) 10 mg PRN DAILY PRN DE CONSTIPATION; Start 04/22/18 at 19:45 Albuterol/ Ipratropium (Duoneb) 3 ml 1X ONCE NEB Last administered on at 13:00; Start 04/23/18 at 13:00; Stop 04/23/18 at 13:01; Status DC Albuterol/ Ipratropium (Duoneb) 3 ml RTQID NEB Last administered on 04/29/18at 07:40; Start 04/23/18 at 16:00 Budesonide (Pulmicort) 0.5 mg RTBID NEB Last administered on 04/29/18at 07:40; Start 04/23/18 at 20:00 Budesonide (Pulmicort) 0.5 mg 1X ONCE NEB ; Start 04/23/18 at 13:00; Stop 04/23 at 13:01; Status DC Guaifenesin (Robitussin Dm) 10 ml PRN Q6HRS PRN PO COUGH 1ST CHOICE; Start at 11:00 Codeine Sulfate (Codeine) 30 mg PRN Q6HRS PRN PO cough 2ND CHOICE; Start at 11:00 Acetaminophen/ Hydrocodone Bitart (Lortab 7.5-325/ 15ml Oral Solution) 15 ml PRN Q6HRS PRN PEG PAIN Last administered on 04/26/18at 01:10; Start 04/25/18 at 10:30 Iodixanol (Visipaque 320) 50 ml STK-MED ONCE .ROUTE ; Start 04/25/18 at 15:24; Stop 04/25/18 at 15:26; Status DC Lidocaine/Sodium Bicarbonate (Buffered Lidocaine 1%) 3 ml 1X ONCE INJ ; Start 04/25/18 at 16:00; Stop 04/25/18 at 16:02; Status DC Lidocaine/Sodium Bicarbonate (Buffered Lidocaine 1%) 3 ml STK-MED ONCE .ROUTE ; Start 04/25/18 at 15:54; Stop 04/25/18 at 15:56; Status DC Lidocaine/Sodium Bicarbonate (Buffered Lidocaine 1%) 1 ml 1X ONCE INJ Last administered on 04/25/18at 16:03; Start 04/25/18 at 16:00; Stop 04/25/18 at 16:02 ; Status DC Iodixanol (Visipaque 320) 10 ml 1X ONCE IV Last administered on 04/25/18 16: 03; Start 04/25/18 at 16:00; Stop 04/25/18 at 16:02; Status DC Throat Lozenges (Chloraseptic) 1 spray PRN Q2HR PRN PO SORE THROAT Last administered on 04/25/18at 22:18; Start 04/25/18 at 20:30 Amoxicillin/ Clavulanate Potassium (Augmentin 875/ 125mg) 1 tab BID PO ; Start 04/28/18 at 21:00; Stop 04/28/18 at 21:00; Status DC Amoxicillin/ Clavulanate Potassium (Augmentin 875/ 125mg) 1 tab 1X ONCE PO Last administered on 04/28/18at 12:14; Start 04/28/18 at 10:15; Stop 04/28/18 at 10:16; Status DC Amoxicillin/ Clavulanate Potassium (Augmentin 400-57mg/5ml Susp) 10 ml Q12HR PEG Last administered on 04/29/18at 09:34; Start 04/28/18 at 21:00 Acetaminophen (Tylenol) 650 mg PRN Q6HRS PRN PEG MILD PAIN / TEMP Last administered on 04/29/18at 09:33; Start 04/28/18 at 20:30 Potassium Chloride (KCl Oral Soln) 40 meq 1X ONCE PEG Last administered on at 09:34; Start 04/29/18 at 08:45; Stop 04/29/18 at 08:47; Status DC Active Scripts Active Reported Hydrocodone-Acetamn 7.5-325/15 (Hydrocodone/Acetaminophen) 15 Ml Solution 15 Ml PO Q4HRS Plaquenil (Hydroxychloroquine Sulfate) 200 Mg Tablet 200 Mg PO BID Sulindac 200 Mg Tablet 200 Mg PO BID Ibuprofen 600 Mg Tablet 600 Mg PO PRN Q6HRS PRN Vitals/I & O Vital Sign - Last 24 Hours 04/28/18 04/28/18 04/28/18 04/28/18 12:02 14:53 15:00 19:00 Temp 98.4 98.5 98.4 98.5 Pulse 91 90 Resp 18 20 B/P (MAP) 127/74 (91) 124/68 (86) Pulse Ox 98 96 97 O2 Delivery Nasal Cannula Room Air Room Air Room Air O2 Flow Rate 1.5 04/28/18 04/28/18 04/29/18 04/29/18 20:30 23:00 03:00 07:40 Temp 97.4 98.4 98.6 97.4 98.4 98.6 Pulse 90 93 97 Resp B/P (MAP) 116/63 (80) 136/80 (98) 144/82 (102) Pulse Ox 96 96 97 O2 Delivery Room Air Room Air Room Air Room Air 04/29/18 07:43 Pulse Ox 95 O2 Delivery Room Air Intake and Output 04/28/18 04/28/18 04/29/18 15:01 23:01 07:01 Intake Total 250 ml 280 ml 500 ml Output Total 150 ml Balance 250 ml 130 ml 500 ml Nutrition Consultation Dietary Evaluation: Recommendations by RD: Increase Calorie Intake Comments: TF adjustment: Jevity 1.5 @ goal rate 55 ml/hr w/250 ml water flushes q6 hrs Expected Outcomes/Goals: to meet > 75% est nutr needs via tube feedings - met, goal ongoing Interpretation of weight loss: >5% in 1 month Malnutrition Findings: Food and Nutrition Intake (Sev: <50% est energy req 5days Weight Status: Overweight LASHAUN SOMMER MD Apr 29, 2018 11:39
--- NOTE | 2018-04-29 12:22 | NUR ---
SW following. Discussed with RN, updates faxed to [facility]. Pending insurance auth for SNU placement. SW will continue to follow.
[2018-04-29 15:00] VITALS: BP 123/66
[2018-04-29 19:00] VITALS: BP 120/60
[2018-04-29] MEDS: HYDROcodon/APAP 7.5/325MG ORAL 15 ML SOLUTION PEG PRN (21:29)
[2018-04-29 23:00] VITALS: BP 127/49
[2018-04-29] MEDS ORDERED: ZOLPIDEM 5 MG TABLET. PO SCH (23:30)
[2018-04-30 03:00] VITALS: BP 115/59
[2018-04-30 06:10] LABS: BASO % 0 % (0-3); EOS # 0.4 x10^3/uL (0.0-0.7); EOS % 4 % (0-3); HEMATOCRIT 23.1 % (36.0-47.0); HEMOGLOBIN 7.3 g/dL (12.0-15.5); LYMPH # 0.5 x10^3/uL (1.0-4.8); LYMPH % 5 % (24-48); MEAN CORPUSCULAR HEMOGLOBIN 22 pg (25-35); MEAN CORPUSCULAR HGB CONC 31 g/dL (31-37); MEAN CORPUSCULAR VOLUME 70 fL (79-100); MONO # 0.5 x10^3/uL (0.0-1.1); MONO % 5 % (0-9); NEUT # 8.6 x10^3uL (1.8-7.7); NEUT % 86 % (31-73); PLATELET COUNT 166 x10^3/uL (140-400); RED BLOOD COUNT 3.31 x10^6/uL (3.50-5.40); RED CELL DISTRIBUTION WIDTH 35.5 % (11.5-14.5)
[2018-04-30 06:36] LABS: CALCIUM 7.9 mg/dL (8.5-10.1); CREATININE 0.5 mg/dL (0.6-1.0); GFR 122.7; POTASSIUM 4.1 mmol/L (3.5-5.1)
[2018-04-30 07:00] VITALS: BP 119/55
[2018-04-30] MEDS: IPRATRPIUM/ALBUTEROL 0.5/2.5MG 3 ML NEBU. NEB SCH ×2 (07:12→12:14)
[2018-04-30] MEDS: BUDESONIDE 0.5 MG/2 ML NEBU. NEB SCH (07:12)
[2018-04-30] MEDS: AMOXICILLIN/CLAV 400MG/57MG 5 ML ORAL.SUSP. PEG SCH (08:42)
[2018-04-30] MEDS: ACETAMINOPHEN 650 MG/20.3 ML SOLUTION. PEG PRN (08:42)
[2018-04-30] MEDS: ENOXAPARIN 40 MG/0.4 ML SYRINGE. SQ SCH (08:43)
[2018-04-30] MEDS ORDERED: POTASSIUM CHLORIDE 20 MEQ/15 ML ORAL LIQUID. PEG SCH ×2 (09:00)
--- NOTE | 2018-04-30 10:18 | PDOC ---
PROGRESS NOTES Chief Complaint Chief Complaint aspriation pneumonitis, pneumonia, on zosyn, ongoing cough dysphagia, failed swallow eval RECENT PEG tube placement and free intraperitoneal gas and fluid possible mild hydronephrosis and right hydroureter hypokalemia anemia HX esophageal ca new dx peritonitis severe malnutrition, POA tolerating tube feeds replace k dc planning for skilled bed today History of Present Illness History of Present Illness doing well, still coughing, weak str. better, up to chair, no events cough is limited advancing tube feeds, still weak, will need SNU she feels better with breathing tx, s/p surgical placement of PEG Tube feeds now at goal, off PPN v Vitals Vitals Vital Signs Date Time Temp Pulse Resp B/P (MAP) Pulse Ox O2 Delivery O2 Flow Rate FiO2 04/30/18 07:50 Room Air 04/30/18 07:14 95 04/30/18 07:00 97.8 101 18 119/55 (76) 97.8 04/29/18 22:29 2.0 Physical Exam Physical Exam GENERAL: NAD, Alert HEENT: PERRL, OC/OP NECK: Supple, no JVD, no LN LUNGS: Clear HEART: S1S2, no gallop, no murmur ABD: Soft, NT, no organomegaly, no rebound EXT: No edema, no cyanosis 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, 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, no focal neurologic deficit SKIN: No rash IV: ok General: Alert, Oriented X3, Cooperative, No acute distress Heart: Regular rate, Normal S1, Normal S2, No murmurs Lungs: Clear Abdomen: Soft, Other (g tube in place) Extremities: No clubbing, No cyanosis, No edema Skin: No rashes, No breakdown Labs LABS Laboratory Tests Test 04/30/18 05:50 White Blood Count 10.0 x10^3/uL (4.0-11.0) Red Blood Count 3.31 x10^6/uL (3.50-5.40) Hemoglobin 7.3 g/dL (12.0-15.5) Hematocrit 23.1 % (36.0-47.0) Mean Corpuscular Volume 70 fL (79-100) Mean Corpuscular Hemoglobin 22 pg (25-35) Mean Corpuscular Hemoglobin Concent 31 g/dL (31-37) Red Cell Distribution Width 35.5 % (11.5-14.5) Platelet Count 166 x10^3/uL (140-400) Neutrophils (%) (Auto) 86 % (31-73) Lymphocytes (%) (Auto) 5 % (24-48) Monocytes (%) (Auto) 5 % (0-9) Eosinophils (%) (Auto) 4 % (0-3) Basophils (%) (Auto) 0 % (0-3) Neutrophils # (Auto) 8.6 x10^3uL (1.8-7.7) Lymphocytes # (Auto) 0.5 x10^3/uL (1.0-4.8) Monocytes # (Auto) 0.5 x10^3/uL (0.0-1.1) Eosinophils # (Auto) 0.4 x10^3/uL (0.0-0.7) Basophils # (Auto) 0.0 x10^3/uL (0.0-0.2) Sodium Level 141 mmol/L (136-145) Potassium Level 4.1 mmol/L (3.5-5.1) Chloride Level 107 mmol/L (98-107) Carbon Dioxide Level 26 mmol/L (21-32) Anion Gap 8 (6-14) Blood Urea Nitrogen 12 mg/dL (7-20) Creatinine 0.5 mg/dL (0.6-1.0) Estimated GFR (Cockcroft-Gault) 122.7 Glucose Level 109 mg/dL (70-99) Calcium Level 7.9 mg/dL (8.5-10.1) Comment Review of Relevant I have reviewed the following items herbie (where applicable) has been applied. Labs Laboratory Tests Test 04/29/18 05:30 04/30/18 05:50 White Blood Count 9.7 x10^3/uL (4.0-11.0) 10.0 x10^3/uL (4.0-11.0) Red Blood Count 3.33 x10^6/uL (3.50-5.40) 3.31 x10^6/uL (3.50-5.40) Hemoglobin 7.2 g/dL (12.0-15.5) 7.3 g/dL (12.0-15.5) Hematocrit 23.0 % (36.0-47.0) 23.1 % (36.0-47.0) Mean Corpuscular Volume 69 fL (79-100) 70 fL (79-100) Mean Corpuscular Hemoglobin 22 pg (25-35) 22 pg (25-35) Mean Corpuscular Hemoglobin Concent 31 g/dL (31-37) 31 g/dL (31-37) Red Cell Distribution Width 34.6 % (11.5-14.5) 35.5 % (11.5-14.5) Platelet Count 130 x10^3/uL (140-400) 166 x10^3/uL (140-400) Neutrophils (%) (Auto) 83 % (31-73) 86 % (31-73) Lymphocytes (%) (Auto) 7 % (24-48) 5 % (24-48) Monocytes (%) (Auto) 6 % (0-9) 5 % (0-9) Eosinophils (%) (Auto) 4 % (0-3) 4 % (0-3) Basophils (%) (Auto) 0 % (0-3) 0 % (0-3) Neutrophils # (Auto) 8.0 x10^3uL (1.8-7.7) 8.6 x10^3uL (1.8-7.7) Lymphocytes # (Auto) 0.7 x10^3/uL (1.0-4.8) 0.5 x10^3/uL (1.0-4.8) Monocytes # (Auto) 0.5 x10^3/uL (0.0-1.1) 0.5 x10^3/uL (0.0-1.1) Eosinophils # (Auto) 0.4 x10^3/uL (0.0-0.7) 0.4 x10^3/uL (0.0-0.7) Basophils # (Auto) 0.0 x10^3/uL (0.0-0.2) 0.0 x10^3/uL (0.0-0.2) Sodium Level 140 mmol/L (136-145) 141 mmol/L (136-145) Potassium Level 3.4 mmol/L (3.5-5.1) 4.1 mmol/L (3.5-5.1) Chloride Level 107 mmol/L (98-107) 107 mmol/L (98-107) Carbon Dioxide Level 26 mmol/L (21-32) 26 mmol/L (21-32) Anion Gap 7 (6-14) 8 (6-14) Blood Urea Nitrogen 12 mg/dL (7-20) 12 mg/dL (7-20) Creatinine 0.5 mg/dL (0.6-1.0) 0.5 mg/dL (0.6-1.0) Estimated GFR (Cockcroft-Gault) 122.7 122.7 BUN/Creatinine Ratio 24 (6-20) Glucose Level 116 mg/dL (70-99) 109 mg/dL (70-99) Calcium Level 7.7 mg/dL (8.5-10.1) 7.9 mg/dL (8.5-10.1) Total Bilirubin 0.3 mg/dL (0.2-1.0) Aspartate Amino Transf (AST/SGOT) 16 U/L (15-37) Alanine Aminotransferase (ALT/SGPT) 14 U/L (14-59) Alkaline Phosphatase 47 U/L (46-116) Total Protein 5.1 g/dL (6.4-8.2) Albumin 1.6 g/dL (3.4-5.0) Albumin/Globulin Ratio 0.5 (1.0-1.7) Laboratory Tests Test 04/30/18 05:50 White Blood Count 10.0 x10^3/uL (4.0-11.0) Red Blood Count 3.31 x10^6/uL (3.50-5.40) Hemoglobin 7.3 g/dL (12.0-15.5) Hematocrit 23.1 % (36.0-47.0) Mean Corpuscular Volume 70 fL (79-100) Mean Corpuscular Hemoglobin 22 pg (25-35) Mean Corpuscular Hemoglobin Concent 31 g/dL (31-37) Red Cell Distribution Width 35.5 % (11.5-14.5) Platelet Count 166 x10^3/uL (140-400) Neutrophils (%) (Auto) 86 % (31-73) Lymphocytes (%) (Auto) 5 % (24-48) Monocytes (%) (Auto) 5 % (0-9) Eosinophils (%) (Auto) 4 % (0-3) Basophils (%) (Auto) 0 % (0-3) Neutrophils # (Auto) 8.6 x10^3uL (1.8-7.7) Lymphocytes # (Auto) 0.5 x10^3/uL (1.0-4.8) Monocytes # (Auto) 0.5 x10^3/uL (0.0-1.1) Eosinophils # (Auto) 0.4 x10^3/uL (0.0-0.7) Basophils # (Auto) 0.0 x10^3/uL (0.0-0.2) Sodium Level 141 mmol/L (136-145) Potassium Level 4.1 mmol/L (3.5-5.1) Chloride Level 107 mmol/L (98-107) Carbon Dioxide Level 26 mmol/L (21-32) Anion Gap 8 (6-14) Blood Urea Nitrogen 12 mg/dL (7-20) Creatinine 0.5 mg/dL (0.6-1.0) Estimated GFR (Cockcroft-Gault) 122.7 Glucose Level 109 mg/dL (70-99) Calcium Level 7.9 mg/dL (8.5-10.1) Microbiology 04/20/18 Blood Culture - Final, Complete NO GROWTH AFTER 5 DAYS Medications Current Medications Sodium Chloride 1,000 ml @ 100 mls/hr Q10H IV Last administered on 04/20/18at 18:17; Start 04/19/18 at 21:00; Stop 04/21/18 at 14:28; Status DC Morphine Sulfate (Morphine Sulfate) 2 mg PRN Q4HRS PRN IV SEVERE PAIN Last administered on 04/20/18at 10:04; Start 04/19/18 at 21:00; Stop 04/20/18 at 18:10 ; Status DC Ondansetron HCl (Zofran) 4 mg PRN Q6HRS PRN IV NAUSEA/VOMITING 1ST CHOICE Last administered on 04/20/18at 10:04; Start 04/19/18 at 21:00 Sodium Chloride 1,000 ml @ 1,000 mls/hr 1X ONCE IV Last administered on at 10:05; Start 04/20/18 at 08:15; Stop 04/20/18 at 09:14; Status DC Ceftriaxone Sodium (Rocephin) 1 gm Q24H IVP Last administered on 04/21/18at 07: 37; Start 04/20/18 at 09:00; Stop 04/21/18 at 18:05; Status DC Metronidazole 100 ml @ 100 mls/hr Q8HRS IV Last administered on 04/23/18at 13: 18; Start 04/20/18 at 14:00; Stop 04/23/18 at 16:46; Status DC Propofol 20 ml @ As Directed STK-MED ONCE IV ; Start 04/20/18 at 15:46; Stop at 15:48; Status DC Lidocaine HCl (Lidocaine Pf 2% Vial) 5 ml STK-MED ONCE .ROUTE ; Start 04/20/18 at 15:46; Stop 04/20/18 at 15:48; Status DC Dexamethasone Sodium Phosphate (Decadron) 20 mg STK-MED ONCE .ROUTE ; Start at 15:47; Stop 04/20/18 at 15:48; Status DC Ondansetron HCl (Zofran) 4 mg STK-MED ONCE .ROUTE ; Start 04/20/18 at 15:47; Stop 04/20/18 at 15:48; Status DC Rocuronium [place] (Zemuron) 50 mg STK-MED ONCE .ROUTE ; Start 04/20/18 at 15:47 ; Stop 04/20/18 at 15:49; Status DC Fentanyl Citrate (Fentanyl 2ml Vial) 100 mcg STK-MED ONCE .ROUTE ; Start at 15:47; Stop 04/20/18 at 15:49; Status DC Bupivacaine HCl/ Epinephrine Bitart (Sensorcain-Mpf Epi 0.5%-[id number]) 30 ml STK -MED ONCE .ROUTE Last administered on 04/20/18at 17:02; Start 04/20/18 at 16:22 ; Stop 04/20/18 at 16:24; Status DC Sevoflurane (Ultane) 30 ml STK-MED ONCE IH ; Start 04/20/18 at 16:35; Stop 04/20 at 16:36; Status DC Succinylcholine Chloride (Anectine) 200 mg STK-MED ONCE .ROUTE ; Start 04/20/18 at 16:38; Stop 04/20/18 at 16:40; Status DC Glycopyrrolate (Robinul) 1 mg STK-MED ONCE .ROUTE ; Start 04/20/18 at 17:08; Stop 04/20/18 at 17:09; Status DC Neostigmine Methylsulfate (Bloxiverz) 10 mg STK-MED ONCE .ROUTE ; Start at 17:08; Stop 04/20/18 at 17:10; Status DC Sevoflurane (Ultane) 60 ml STK-MED ONCE IH ; Start 04/20/18 at 17:26; Stop 04/20 at 17:28; Status DC Enoxaparin Sodium (Lovenox 40mg Syringe) 40 mg Q24H SQ Last administered on at 08:43; Start 04/21/18 at 09:00 Sodium Chloride (Normal Saline Flush) 3 ml QSHIFT PRN IV AFTER MEDS AND BLOOD DRAWS; Start 04/20/18 at 18:15 Ringer's Solution 1,000 ml @ 100 mls/hr Q10H IV Last administered on at 06:00; Start 04/20/18 at 19:00; Stop 04/21/18 at 14:28; Status DC Morphine Sulfate 30 ml @ 0 mls/hr CONT PRN PRN IV PER PROTOCOL Last administered on 04/20/18at 19:03; Start 04/20/18 at 18:15; Stop 04/25/18 at 10:19 ; Status DC Docusate Sodium (Colace) 100 mg BID PO Last administered on 04/21/18at 07:36; Start 04/20/18 at 21:00; Stop 04/22/18 at 19:46; Status DC Ondansetron HCl (Zofran) 4 mg PRN Q6HRS PRN IV NAUESA, 1ST CHOICE; Start at 18:15; Status UNV Amino Acids/ Glycerin/ Electrolytes 1,000 ml @ 80 mls/hr [id number] IV Last administered on 04/26/18at 05:13; Start 04/20/18 at 21:00; Stop 04/26/18 at 09:55 ; Status DC Fentanyl Citrate (Fentanyl 2ml Vial) 100 mcg STK-MED ONCE .ROUTE ; Start at 18:52; Stop 04/20/18 at 18:54; Status DC Ondansetron HCl (Zofran) 4 mg PRN Q6HRS PRN IV NAUSEA/VOMITING; Start 04/20/18 at 19:00; Stop 04/20/18 at 23:59; Status DC Fentanyl Citrate (Fentanyl 2ml Vial) 25 mcg PRN Q5MIN PRN IV MILD PAIN Last administered on 04/20/18at 19:30; Start 04/20/18 at 19:00; Stop 04/20/18 at 23:59 ; Status DC Fentanyl Citrate (Fentanyl 2ml Vial) 50 mcg PRN Q5MIN PRN IV MODERATE TO SEVERE PAIN; Start 04/20/18 at 19:00; Stop 04/20/18 at 23:59; Status DC Morphine Sulfate (Morphine Sulfate) 1 mg PRN Q10MIN PRN IV SEVERE PAIN; Start 04/20/18 at 19:00; Stop 04/20/18 at 23:59; Status DC Ringer's Solution 1,000 ml @ 30 mls/hr Q24H IV ; Start 04/20/18 at 19:00; Stop 04/20/18 at 23:59; Status DC Lidocaine HCl (Xylocaine-Mpf 1% 2ml Vial) 2 ml PRN 1X PRN ID PRIOR TO IV START ; Start 04/20/18 at 19:00; Stop 04/20/18 at 23:59; Status DC Hydromorphone HCl (Dilaudid) 0.5 mg PRN Q10MIN PRN IV SEV PAIN, Second choice; Start 04/20/18 at 19:00; Stop 04/20/18 at 23:59; Status DC Prochlorperazine Edisylate (Compazine) 5 mg PACU PRN PRN IV NAUSEA, MRX1; Start 04/20/18 at 19:00; Stop 04/20/18 at 23:59; Status DC Acetaminophen (Tylenol) 650 mg 1X PRN PRN PO PRE-TRANSFUSION; Start 04/21/18 at 13:15; Stop 04/27/18 at 11:25; Status DC Sodium Chloride 1,000 ml @ 25 mls/hr Q24H PRN IV 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; Start 04/21/18 at 14:30; Stop 04/22/18 at 19:46; Status DC Piperacillin Sod/ Tazobactam Sod 3.375 gm/Sodium Chloride 50 ml @ 100 mls/hr Q6HRS IV Last administered on 04/28/18at 05:52; Start 04/21/18 at 18:30; Stop at 10:06; Status DC Saliva Substitute (Biotene Moisturizing Mouth) 2 spray PRN Q15MIN PRN PO DRY MOUTH Last administered on 04/25/18at 22:18; Start 04/22/18 at 11:45 Bisacodyl (Dulcolax Supp) 10 mg PRN DAILY PRN SC CONSTIPATION; Start 04/22/18 at 19:45 Albuterol/ Ipratropium (Duoneb) 3 ml 1X ONCE NEB Last administered on at 13:00; Start 04/23/18 at 13:00; Stop 04/23/18 at 13:01; Status DC Albuterol/ Ipratropium (Duoneb) 3 ml RTQID NEB Last administered on 04/30/18at 07:12; Start 04/23/18 at 16:00 Budesonide (Pulmicort) 0.5 mg RTBID NEB Last administered on 04/30/18at 07:12; Start 04/23/18 at 20:00 Budesonide (Pulmicort) 0.5 mg 1X ONCE NEB ; Start 04/23/18 at 13:00; Stop 04/23 at 13:01; Status DC Guaifenesin (Robitussin Dm) 10 ml PRN Q6HRS PRN PO COUGH 1ST CHOICE; Start at 11:00 Codeine Sulfate (Codeine) 30 mg PRN Q6HRS PRN PO cough 2ND CHOICE; Start at 11:00 Acetaminophen/ Hydrocodone Bitart (Lortab 7.5-325/ 15ml Oral Solution) 15 ml PRN Q6HRS PRN PEG MODERATE-SEVERE PAIN Last administered on 04/29/18at 21:29; Start 04/25/18 at 10:30 Iodixanol (Visipaque 320) 50 ml STK-MED ONCE .ROUTE ; Start 04/25/18 at 15:24; Stop 04/25/18 at 15:26; Status DC Lidocaine/Sodium Bicarbonate (Buffered Lidocaine 1%) 3 ml 1X ONCE INJ ; Start 04/25/18 at 16:00; Stop 04/25/18 at 16:02; Status DC Lidocaine/Sodium Bicarbonate (Buffered Lidocaine 1%) 3 ml STK-MED ONCE .ROUTE ; Start 04/25/18 at 15:54; Stop 04/25/18 at 15:56; Status DC Lidocaine/Sodium Bicarbonate (Buffered Lidocaine 1%) 1 ml 1X ONCE INJ Last administered on 04/25/18at 16:03; Start 04/25/18 at 16:00; Stop 04/25/18 at 16:02 ; Status DC Iodixanol (Visipaque 320) 10 ml 1X ONCE IV Last administered on 04/25/18at 16: 03; Start 04/25/18 at 16:00; Stop 04/25/18 at 16:02; Status DC Throat Lozenges (Chloraseptic) 1 spray PRN Q2HR PRN PO SORE THROAT Last administered on 04/25/18at 22:18; Start 04/25/18 at 20:30 Amoxicillin/ Clavulanate Potassium (Augmentin 875/ 125mg) 1 tab BID PO ; Start 04/28/18 at 21:00; Stop 04/28/18 at 21:00; Status DC Amoxicillin/ Clavulanate Potassium (Augmentin 875/ 125mg) 1 tab 1X ONCE PO Last administered on 04/28/18at 12:14; Start 04/28/18 at 10:15; Stop 04/28/18 at 10:16; Status DC Amoxicillin/ Clavulanate Potassium (Augmentin 400-57mg/5ml Susp) 10 ml Q12HR PEG Last administered on 04/30/18at 08:42; Start 04/28/18 at 21:00 Acetaminophen (Tylenol) 650 mg PRN Q6HRS PRN PEG MILD PAIN / TEMP Last administered on 04/30/18at 08:42; Start 04/28/18 at 20:30 Potassium Chloride (KCl Oral Soln) 40 meq 1X ONCE PEG Last administered on at 09:34; Start 04/29/18 at 08:45; Stop 04/29/18 at 08:47; Status DC Potassium Chloride (KCl Oral Soln) 40 meq 1X ONCE PEG ; Start 04/29/18 at 17:30 ; Stop 04/29/18 at 17:31; Status DC Potassium Chloride (KCl Oral Soln) 20 meq DAILY PEG Last administered on at 08:43; Start 04/30/18 at 09:00 Potassium Chloride (KCl Oral Soln) 20 meq DAILY PEG ; Start 04/30/18 at 09:00; Stop 04/30/18 at 09:00; Status DC Zolpidem Tartrate (Ambien) 5 mg HS PO Last administered on 04/29/18at 23:39; Start 04/29/18 at 23:30 Active Scripts Active Reported Hydrocodone-Acetamn 7.5-325/15 (Hydrocodone/Acetaminophen) 15 Ml Solution 15 Ml PO Q4HRS Plaquenil (Hydroxychloroquine Sulfate) 200 Mg Tablet 200 Mg PO BID Sulindac 200 Mg Tablet 200 Mg PO BID Ibuprofen 600 Mg Tablet 600 Mg PO PRN Q6HRS PRN Vitals/I & O Vital Sign - Last 24 Hours 04/29/18 04/29/18 04/29/18 04/29/18 11:00 12:36 15:00 16:40 Temp 98.3 97.7 98.3 97.7 Pulse 92 100 Resp 26 30 B/P (MAP) 110/68 (82) 123/66 (85) Pulse Ox 97 96 96 95 O2 Delivery Room Air Room Air Room Air Room Air 04/29/18 04/29/18 04/29/18 04/29/18 19:00 19:47 20:05 21:29 Temp 97.6 97.6 Pulse 100 Resp 30 20 B/P (MAP) 120/60 (80) Pulse Ox 99 98 O2 Delivery Room Air Room Air Room Air Nasal Cannula O2 Flow Rate 2.0 04/29/18 04/29/18 04/30/18 04/30/18 22:29 23:00 03:00 07:00 Temp 98.1 97.6 97.8 98.1 97.6 97.8 Pulse 90 92 101 Resp 20 30 30 18 B/P (MAP) 127/49 (75) 115/59 (77) 119/55 (76) Pulse Ox 97 98 93 O2 Delivery Nasal Cannula Room Air Room Air Room Air O2 Flow Rate 2.0 04/30/18 04/30/18 07:14 07:50 Pulse Ox 95 O2 Delivery Room Air Room Air Intake and Output 04/29/18 04/29/18 04/30/18 15:01 23:01 07:01 Intake Total 90 ml 650 ml 885 ml Output Total 520 ml 70 ml Balance 90 ml 130 ml 815 ml Nutrition Consultation Dietary Evaluation: Recommendations by RD: Increase Calorie Intake Comments: TF adjustment: Jevity 1.5 @ goal rate 55 ml/hr w/250 ml water flushes q6 hrs Expected Outcomes/Goals: to meet > 75% est nutr needs via tube feedings - met, goal ongoing Interpretation of weight loss: >5% in 1 month Malnutrition Findings: Food and Nutrition Intake (Sev: <50% est energy req 5days Weight Status: Overweight LASHAUN SOMMER MD Apr 30, 2018 10:18
--- NOTE | 2018-04-30 10:21 | PDOC3 ---
Discharge Summary Date of Discharge: Apr 30, 2018 Follow-Up: 1-2 days Admitting Diagnosis comment: DISCHARGE DX aspriation pneumonitis, pneumonia, on zosyn, ongoing cough dysphagia, failed swallow eval RECENT PEG tube placement and free intraperitoneal gas and fluid possible mild hydronephrosis and right hydroureter hypokalemia anemia HX esophageal ca new dx peritonitis severe malnutrition, POA replace k dc planning for skilled bed TODAY History of Present Illness History of Present Illness doing well, still coughing, weak str. better, up to chair, no events cough is limited she feels better with breathing tx, s/p surgical placement of PEG Tube feeds now at goal, v Vitals Vitals Vital Signs Date Time Temp Pulse Resp B/P (MAP) Pulse Ox O2 Delivery O2 Flow Rate FiO2 04/30/18 07:50 Room Air 04/30/18 07:14 95 04/30/18 07:00 97.8 101 18 119/55 (76) 97.8 04/29/18 22:29 2.0 Physical Exam Physical Exam GENERAL: NAD, Alert HEENT: PERRL, OC/OP NECK: Supple, no JVD, no LN LUNGS: Clear HEART: S1S2, no gallop, no murmur ABD: Soft, NT, no organomegaly, no rebound EXT: No edema, no cyanosis [employer]: Alert, 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, no focal neurologic deficit SKIN: No rash IV: ok General: Alert, Oriented X3, Cooperative, No acute distress Heart: Regular rate, Normal S1, Normal S2, No murmurs Lungs: Clear Abdomen: Soft, Other (g tube in place) Extremities: No clubbing, No cyanosis, No edema Skin: No rashes, No breakdown Labs Brief Hospital Course Ms. Cazares is a 67 old [sex] who presented with [ ] Discharge Medications Current Medications Sodium Chloride 1,000 ml @ 100 mls/hr Q10H IV Last administered on 04/20/18at 18:17; Start 04/19/18 at 21:00; Stop 04/21/18 at 14:28; Status DC Morphine Sulfate (Morphine Sulfate) 2 mg PRN Q4HRS PRN IV SEVERE PAIN Last administered on 04/20/18at 10:04; Start 04/19/18 at 21:00; Stop 04/20/18 at 18:10 ; Status DC Ondansetron HCl (Zofran) 4 mg PRN Q6HRS PRN IV NAUSEA/VOMITING 1ST CHOICE Last administered on 04/20/18at 10:04; Start 04/19/18 at 21:00 Sodium Chloride 1,000 ml @ 1,000 mls/hr 1X ONCE IV Last administered on at 10:05; Start 04/20/18 at 08:15; Stop 04/20/18 at 09:14; Status DC Ceftriaxone Sodium (Rocephin) 1 gm Q24H IVP Last administered on 04/21/18at 07: 37; Start 04/20/18 at 09:00; Stop 04/21/18 at 18:05; Status DC Metronidazole 100 ml @ 100 mls/hr Q8HRS IV Last administered on 04/23/18at 13: 18; Start 04/20/18 at 14:00; Stop 04/23/18 at 16:46; Status DC Propofol 20 ml @ As Directed STK-MED ONCE IV ; Start 04/20/18 at 15:46; Stop at 15:48; Status DC Lidocaine HCl (Lidocaine Pf 2% Vial) 5 ml STK-MED ONCE .ROUTE ; Start 04/20/18 at 15:46; Stop 04/20/18 at 15:48; Status DC Dexamethasone Sodium Phosphate (Decadron) 20 mg STK-MED ONCE .ROUTE ; Start at 15:47; Stop 04/20/18 at 15:48; Status DC Ondansetron HCl (Zofran) 4 mg STK-MED ONCE .ROUTE ; Start 04/20/18 at 15:47; Stop 04/20/18 at 15:48; Status DC Rocuronium [place] (Zemuron) 50 mg STK-MED ONCE .ROUTE ; Start 04/20/18 at 15:47 ; Stop 04/20/18 at 15:49; Status DC Fentanyl Citrate (Fentanyl 2ml Vial) 100 mcg STK-MED ONCE .ROUTE ; Start at 15:47; Stop 04/20/18 at 15:49; Status DC Bupivacaine HCl/ Epinephrine Bitart (Sensorcain-Mpf Epi 0.5%-[id number]) 30 ml STK -MED ONCE .ROUTE Last administered on 04/20/18at 17:02; Start 04/20/18 at 16:22 ; Stop 04/20/18 at 16:24; Status DC Sevoflurane (Ultane) 30 ml STK-MED ONCE IH ; Start 04/20/18 at 16:35; Stop 04/20 at 16:36; Status DC Succinylcholine Chloride (Anectine) 200 mg STK-MED ONCE .ROUTE ; Start 04/20/18 at 16:38; Stop 04/20/18 at 16:40; Status DC Glycopyrrolate (Robinul) 1 mg STK-MED ONCE .ROUTE ; Start 04/20/18 at 17:08; Stop 04/20/18 at 17:09; Status DC Neostigmine Methylsulfate (Bloxiverz) 10 mg STK-MED ONCE .ROUTE ; Start at 17:08; Stop 04/20/18 at 17:10; Status DC Sevoflurane (Ultane) 60 ml STK-MED ONCE IH ; Start 04/20/18 at 17:26; Stop 04/20 at 17:28; Status DC Enoxaparin Sodium (Lovenox 40mg Syringe) 40 mg Q24H SQ Last administered on at 08:43; Start 04/21/18 at 09:00 Sodium Chloride (Normal Saline Flush) 3 ml QSHIFT PRN IV AFTER MEDS AND BLOOD DRAWS; Start 04/20/18 at 18:15 Ringer's Solution 1,000 ml @ 100 mls/hr Q10H IV Last administered on at 06:00; Start 04/20/18 at 19:00; Stop 04/21/18 at 14:28; Status DC Morphine Sulfate 30 ml @ 0 mls/hr CONT PRN PRN IV PER PROTOCOL Last administered on 04/20/18at 19:03; Start 04/20/18 at 18:15; Stop 04/25/18 at 10:19 ; Status DC Docusate Sodium (Colace) 100 mg BID PO Last administered on 04/21/18at 07:36; Start 04/20/18 at 21:00; Stop 04/22/18 at 19:46; Status DC Ondansetron HCl (Zofran) 4 mg PRN Q6HRS PRN IV NAUESA, 1ST CHOICE; Start at 18:15; Status UNV Amino Acids/ Glycerin/ Electrolytes 1,000 ml @ 80 mls/hr [id number] IV Last administered on 04/26/18at 05:13; Start 04/20/18 at 21:00; Stop 04/26/18 at 09:55 ; Status DC Fentanyl Citrate (Fentanyl 2ml Vial) 100 mcg STK-MED ONCE .ROUTE ; Start at 18:52; Stop 04/20/18 at 18:54; Status DC Ondansetron HCl (Zofran) 4 mg PRN Q6HRS PRN IV NAUSEA/VOMITING; Start 04/20/18 at 19:00; Stop 04/20/18 at 23:59; Status DC Fentanyl Citrate (Fentanyl 2ml Vial) 25 mcg PRN Q5MIN PRN IV MILD PAIN Last administered on 04/20/18at 19:30; Start 04/20/18 at 19:00; Stop 04/20/18 at 23:59 ; Status DC Fentanyl Citrate (Fentanyl 2ml Vial) 50 mcg PRN Q5MIN PRN IV MODERATE TO SEVERE PAIN; Start 04/20/18 at 19:00; Stop 04/20/18 at 23:59; Status DC Morphine Sulfate (Morphine Sulfate) 1 mg PRN Q10MIN PRN IV SEVERE PAIN; Start 04/20/18 at 19:00; Stop 04/20/18 at 23:59; Status DC Ringer's Solution 1,000 ml @ 30 mls/hr Q24H IV ; Start 04/20/18 at 19:00; Stop 04/20/18 at 23:59; Status DC Lidocaine HCl (Xylocaine-Mpf 1% 2ml Vial) 2 ml PRN 1X PRN ID PRIOR TO IV START ; Start 04/20/18 at 19:00; Stop 04/20/18 at 23:59; Status DC Hydromorphone HCl (Dilaudid) 0.5 mg PRN Q10MIN PRN IV SEV PAIN, Second choice; Start 04/20/18 at 19:00; Stop 04/20/18 at 23:59; Status DC Prochlorperazine Edisylate (Compazine) 5 mg PACU PRN PRN IV NAUSEA, MRX1; Start 04/20/18 at 19:00; Stop 04/20/18 at 23:59; Status DC Acetaminophen (Tylenol) 650 mg 1X PRN PRN PO PRE-TRANSFUSION; Start 04/21/18 at 13:15; Stop 04/27/18 at 11:25; Status DC Sodium Chloride 1,000 ml @ 25 mls/hr Q24H PRN IV LEGAL EXECUTIVE carrier; Start 04/21/18 at 14:30; Stop 04/22/18 at 19:46; Status DC Piperacillin Sod/ Tazobactam Sod 3.375 gm/Sodium Chloride 50 ml @ 100 mls/hr Q6HRS IV Last administered on 04/28/18at 05:52; Start 04/21/18 at 18:30; Stop at 10:06; Status DC Saliva Substitute (Biotene Moisturizing Mouth) 2 spray PRN Q15MIN PRN PO DRY MOUTH Last administered on 04/25/18at 22:18; Start 04/22/18 at 11:45 Bisacodyl (Dulcolax Supp) 10 mg PRN DAILY PRN OK CONSTIPATION; Start 04/22/18 at 19:45 Albuterol/ Ipratropium (Duoneb) 3 ml 1X ONCE NEB Last administered on at 13:00; Start 04/23/18 at 13:00; Stop 04/23/18 at 13:01; Status DC Albuterol/ Ipratropium (Duoneb) 3 ml RTQID NEB Last administered on 04/30/18at 07:12; Start 04/23/18 at 16:00 Budesonide (Pulmicort) 0.5 mg RTBID NEB Last administered on 04/30/18at 07:12; Start 04/23/18 at 20:00 Budesonide (Pulmicort) 0.5 mg 1X ONCE NEB ; Start 04/23/18 at 13:00; Stop 04/23 at 13:01; Status DC Guaifenesin (Robitussin Dm) 10 ml PRN Q6HRS PRN PO COUGH 1ST CHOICE; Start at 11:00 Codeine Sulfate (Codeine) 30 mg PRN Q6HRS PRN PO cough 2ND CHOICE; Start at 11:00 Acetaminophen/ Hydrocodone Bitart (Lortab 7.5-325/ 15ml Oral Solution) 15 ml PRN Q6HRS PRN PEG MODERATE-SEVERE PAIN Last administered on 04/29/18at 21:29; Start 04/25/18 at 10:30 Iodixanol (Visipaque 320) 50 ml STK-MED ONCE .ROUTE ; Start 04/25/18 at 15:24; Stop 04/25/18 at 15:26; Status DC Lidocaine/Sodium Bicarbonate (Buffered Lidocaine 1%) 3 ml 1X ONCE INJ ; Start 04/25/18 at 16:00; Stop 04/25/18 at 16:02; Status DC Lidocaine/Sodium Bicarbonate (Buffered Lidocaine 1%) 3 ml STK-MED ONCE .ROUTE ; Start 04/25/18 at 15:54; Stop 04/25/18 at 15:56; Status DC Lidocaine/Sodium Bicarbonate (Buffered Lidocaine 1%) 1 ml 1X ONCE INJ Last administered on 04/25/18at 16:03; Start 04/25/18 at 16:00; Stop 04/25/18 at 16:02 ; Status DC Iodixanol (Visipaque 320) 10 ml 1X ONCE IV Last administered on 04/25/18at 16: 03; Start 04/25/18 at 16:00; Stop 04/25/18 at 16:02; Status DC Throat Lozenges (Chloraseptic) 1 spray PRN Q2HR PRN PO SORE THROAT Last administered on 04/25/18at 22:18; Start 04/25/18 at 20:30 Amoxicillin/ Clavulanate Potassium (Augmentin 875/ 125mg) 1 tab BID PO ; Start 04/28/18 at 21:00; Stop 04/28/18 at 21:00; Status DC Amoxicillin/ Clavulanate Potassium (Augmentin 875/ 125mg) 1 tab 1X ONCE PO Last administered on 04/28/18at 12:14; Start 04/28/18 at 10:15; Stop 04/28/18 at 10:16; Status DC Amoxicillin/ Clavulanate Potassium (Augmentin 400-57mg/5ml Susp) 10 ml Q12HR PEG Last administered on 04/30/18at 08:42; Start 04/28/18 at 21:00 Acetaminophen (Tylenol) 650 mg PRN Q6HRS PRN PEG MILD PAIN / TEMP Last administered on 04/30/18at 08:42; Start 04/28/18 at 20:30 Potassium Chloride (KCl Oral Soln) 40 meq 1X ONCE PEG Last administered on at 09:34; Start 04/29/18 at 08:45; Stop 04/29/18 at 08:47; Status DC Potassium Chloride (KCl Oral Soln) 40 meq 1X ONCE PEG ; Start 04/29/18 at 17:30 ; Stop 04/29/18 at 17:31; Status DC Potassium Chloride (KCl Oral Soln) 20 meq DAILY PEG Last administered on at 08:43; Start 04/30/18 at 09:00 Potassium Chloride (KCl Oral Soln) 20 meq DAILY PEG ; Start 04/30/18 at 09:00; Stop 04/30/18 at 09:00; Status DC Zolpidem Tartrate (Ambien) 5 mg HS PO Last administered on 04/29/18at 23:39; Start 04/29/18 at 23:30 Active Scripts Active Reported Hydrocodone-Acetamn 7.5-325/15 (Hydrocodone/Acetaminophen) 15 Ml Solution 15 Ml PO Q4HRS Plaquenil (Hydroxychloroquine Sulfate) 200 Mg Tablet 200 Mg PO BID Sulindac 200 Mg Tablet 200 Mg PO BID Ibuprofen 600 Mg Tablet 600 Mg PO PRN Q6HRS PRN Vital Signs Vital Signs Date Time Temp Pulse Resp B/P (MAP) Pulse Ox O2 Delivery O2 Flow Rate FiO2 04/30/18 07:50 Room Air 04/30/18 07:14 95 04/30/18 07:00 97.8 101 18 119/55 (76) 97.8 04/29/18 22:29 2.0 Labs Laboratory Tests Test 04/29/18 05:30 04/30/18 05:50 White Blood Count 9.7 x10^3/uL (4.0-11.0) 10.0 x10^3/uL (4.0-11.0) Red Blood Count 3.33 x10^6/uL (3.50-5.40) 3.31 x10^6/uL (3.50-5.40) Hemoglobin 7.2 g/dL (12.0-15.5) 7.3 g/dL (12.0-15.5) Hematocrit 23.0 % (36.0-47.0) 23.1 % (36.0-47.0) Mean Corpuscular Volume 69 fL (79-100) 70 fL (79-100) Mean Corpuscular Hemoglobin 22 pg (25-35) 22 pg (25-35) Mean Corpuscular Hemoglobin Concent 31 g/dL (31-37) 31 g/dL (31-37) Red Cell Distribution Width 34.6 % (11.5-14.5) 35.5 % (11.5-14.5) Platelet Count 130 x10^3/uL (140-400) 166 x10^3/uL (140-400) Neutrophils (%) (Auto) 83 % (31-73) 86 % (31-73) Lymphocytes (%) (Auto) 7 % (24-48) 5 % (24-48) Monocytes (%) (Auto) 6 % (0-9) 5 % (0-9) Eosinophils (%) (Auto) 4 % (0-3) 4 % (0-3) Basophils (%) (Auto) 0 % (0-3) 0 % (0-3) Neutrophils # (Auto) 8.0 x10^3uL (1.8-7.7) 8.6 x10^3uL (1.8-7.7) Lymphocytes # (Auto) 0.7 x10^3/uL (1.0-4.8) 0.5 x10^3/uL (1.0-4.8) Monocytes # (Auto) 0.5 x10^3/uL (0.0-1.1) 0.5 x10^3/uL (0.0-1.1) Eosinophils # (Auto) 0.4 x10^3/uL (0.0-0.7) 0.4 x10^3/uL (0.0-0.7) Basophils # (Auto) 0.0 x10^3/uL (0.0-0.2) 0.0 x10^3/uL (0.0-0.2) Sodium Level 140 mmol/L (136-145) 141 mmol/L (136-145) Potassium Level 3.4 mmol/L (3.5-5.1) 4.1 mmol/L (3.5-5.1) Chloride Level 107 mmol/L (98-107) 107 mmol/L (98-107) Carbon Dioxide Level 26 mmol/L (21-32) 26 mmol/L (21-32) Anion Gap 7 (6-14) 8 (6-14) Blood Urea Nitrogen 12 mg/dL (7-20) 12 mg/dL (7-20) Creatinine 0.5 mg/dL (0.6-1.0) 0.5 mg/dL (0.6-1.0) Estimated GFR (Cockcroft-Gault) 122.7 122.7 BUN/Creatinine Ratio 24 (6-20) Glucose Level 116 mg/dL (70-99) 109 mg/dL (70-99) Calcium Level 7.7 mg/dL (8.5-10.1) 7.9 mg/dL (8.5-10.1) Total Bilirubin 0.3 mg/dL (0.2-1.0) Aspartate Amino Transf (AST/SGOT) 16 U/L (15-37) Alanine Aminotransferase (ALT/SGPT) 14 U/L (14-59) Alkaline Phosphatase 47 U/L (46-116) Total Protein 5.1 g/dL (6.4-8.2) Albumin 1.6 g/dL (3.4-5.0) Albumin/Globulin Ratio 0.5 (1.0-1.7) Laboratory Tests Test 04/30/18 05:50 White Blood Count 10.0 x10^3/uL (4.0-11.0) Red Blood Count 3.31 x10^6/uL (3.50-5.40) Hemoglobin 7.3 g/dL (12.0-15.5) Hematocrit 23.1 % (36.0-47.0) Mean Corpuscular Volume 70 fL (79-100) Mean Corpuscular Hemoglobin 22 pg (25-35) Mean Corpuscular Hemoglobin Concent 31 g/dL (31-37) Red Cell Distribution Width 35.5 % (11.5-14.5) Platelet Count 166 x10^3/uL (140-400) Neutrophils (%) (Auto) 86 % (31-73) Lymphocytes (%) (Auto) 5 % (24-48) Monocytes (%) (Auto) 5 % (0-9) Eosinophils (%) (Auto) 4 % (0-3) Basophils (%) (Auto) 0 % (0-3) Neutrophils # (Auto) 8.6 x10^3uL (1.8-7.7) Lymphocytes # (Auto) 0.5 x10^3/uL (1.0-4.8) Monocytes # (Auto) 0.5 x10^3/uL (0.0-1.1) Eosinophils # (Auto) 0.4 x10^3/uL (0.0-0.7) Basophils # (Auto) 0.0 x10^3/uL (0.0-0.2) Sodium Level 141 mmol/L (136-145) Potassium Level 4.1 mmol/L (3.5-5.1) Chloride Level 107 mmol/L (98-107) Carbon Dioxide Level 26 mmol/L (21-32) Anion Gap 8 (6-14) Blood Urea Nitrogen 12 mg/dL (7-20) Creatinine 0.5 mg/dL (0.6-1.0) Estimated GFR (Cockcroft-Gault) 122.7 Glucose Level 109 mg/dL (70-99) Calcium Level 7.9 mg/dL (8.5-10.1) Allergies Allergies Coded Allergies Type Severity Reaction Last Updated Verified No Known Drug Allergies 04/18/18 No LASHAUN SOMMER MD Apr 30, 2018 10:21
--- NOTE | 2018-04-30 10:23 | DISCH ---
DISCHARGE DISCHARGE INFORMATION: CONDITION ON DISCHARGE: Stable CODE STATUS: Code Status: Full CORRECTION: SNF STAY <30 DAYS: Yes HOSPICE: HOSPICE: No HOSPICE EVAL & TREAT: No LTAC: ADMIT TO LTAC: No POST DISCHARGE ORDERS: ACTIVITY ORDERS: Resume previous activity, Avoid exertion DIET AFTER DISCHARGE: TUBE FEEDING CHECKS AFTER DISCHARGE: CHECKS AFTER DISCHARGE: Check blood press - daily TREATMENT/EQUIPMENT ORDERS: ADAPTIVE EQUIPMENT NEEDED: Commode, Front wheeled walker INFUSION EQUIPMENT NEEDED: Feeding Tube Physical Therapy For: Evalulation/Treatment Occupational Therapy For: Evaluation/Treatment Speech Language Pathology For: Evaluation/Treatment DISCHARGE MEDICATIONS: Home Meds Reported Medications Hydrocodone/Acetaminophen (Hydrocodone-Acetamn 7.5-325/15) 15 Ml Solution, 15 ML PO Q4HRS for pain, #300 ML 04/18/18 Hydroxychloroquine Sulfate (PLAQUENIL) 200 Mg Tablet, 200 MG PO BID for arthritis, TAB 04/18/18 Sulindac (SULINDAC) 200 Mg Tablet, 200 MG PO BID for arthritis, TAB 04/18/18 Ibuprofen (IBUPROFEN) 600 Mg Tablet, 600 MG PO PRN Q6HRS PRN for INFLAMMATION, TAB 04/18/18 LASHAUN SOMMER MD Apr 30, 2018 10:23
[2018-04-30] MEDS ORDERED: PHEN177S7 PO (10:31)
[2018-04-30] MEDS ORDERED: ENOX40DI3 SQ (10:31)
[2018-04-30] MEDS ORDERED: AMOX400S PEG (10:31)
[2018-04-30] MEDS ORDERED: CODE30TA PO (10:31)
[2018-04-30] MEDS ORDERED: GUAI5SYR PO (10:31)
[2018-04-30] MEDS ORDERED: POTA20LI2 PEG (10:31)
[2018-04-30] MEDS ORDERED: ACET650S PEG (10:31)
[2018-04-30] MEDS ORDERED: SALI44.3 PO (10:31)
[2018-04-30] MEDS ORDERED: Bisacodyl Supp PR (10:31)
[2018-04-30] MEDS ORDERED: ZOLP5TAB PO (10:31)
[2018-04-30] MEDS ORDERED: BUDE0.5A NEB (10:31)
[2018-04-30] MEDS ORDERED: IPRA3AMP29 NEB (10:31)
[2018-04-30] MEDS ORDERED: 0.92DISP2 IV (10:31)
[2018-04-30 11:00] VITALS: BP 125/71
[2018-04-30 11:03] LABS: % BASOS 1 % (0-3); % EOS 5 % (0-5); % LYMPHS 4 % (24-48); % MONOS 7 % (0-10); % SEGS 83 % (35-66); ANISOCYTOSIS MARKED; HYPOCHROMIA MOD; MICROCYTOSIS MOD; PLT ESTIMATE ADEQUATE (ADEQUATE)
--- NOTE | 2018-04-30 12:47 | DISCH ---
DISCHARGE DISCHARGE INFORMATION: CONDITION ON DISCHARGE: Stable CODE STATUS: Code Status: Full POST DISCHARGE ORDERS: ACTIVITY ORDERS: Resume previous activity, Avoid exertion DIET AFTER DISCHARGE: TUBE FEEDING CHECKS AFTER DISCHARGE: CHECKS AFTER DISCHARGE: Check blood press - daily TREATMENT/EQUIPMENT ORDERS: ADAPTIVE EQUIPMENT NEEDED: Commode, Front wheeled walker, Raised toilet seat w/ arms (BEDSIDE SUCTION/ YONKERS PRN) INFUSION EQUIPMENT NEEDED: Feeding Tube RESPIRATORY EQUIPMENT NEEDED: MDI Physical Therapy For: Evalulation/Treatment Occupational Therapy For: Evaluation/Treatment Speech Language Pathology For: Evaluation/Treatment DISCHARGE MEDICATIONS: Home Meds Active Scripts 0.9 % Sodium Chloride (NORMAL SALINE FLUSH) 2 Ml Disp.syrin, 3 ML IV QSHIFT PRN for AFTER MEDS AND BLOOD DRAWS for 28 Days, #60 DIS.SYR Prov:LASHAUN SOMMER MD 04/30/18 Potassium Chloride (POTASSIUM CHLORIDE ORAL LIQUID) 20 Meq/15 Ml Liquid, 20 MEQ PEG DAILY for SUPPLEMENT for 10 Days, #60 LIQUID Prov:LASHAUN SOMMER MD 04/30/18 Zolpidem Tartrate (AMBIEN) 5 Mg Tablet, 5 MG PO HS for SLEEP MDD 1 for 14 Days, #14 TAB Prov:LASHAUN SOMMER MD 04/30/18 Acetaminophen (ACETAMINOPHEN ORAL LIQUID ) 650 Mg/20.3 Ml Solution, 650 MG PEG PRN Q6HRS PRN for MILD PAIN / TEMP for 30 Days, #120 MISC Prov:LASHAUN SOMMER MD 04/30/18 [Bisacodyl Supp] 10 MG SUPP.RECT No Conflict Check, 10 MG ID PRN DAILY PRN for CONSTIPATION for 14 Days, #14 Prov:LASHAUN SOMMER MD 04/30/18 Phenol (PHENASEPTIC) 177 Ml [place], 1 SPRAY PO PRN Q2HR PRN for SORE THROAT for 28 Days, #30 SPRAY Prov:LASHAUN SOMMER MD 04/30/18 Saliva Stimulant Agents Comb.3 (BIOTENE MOISTURIZING MOUTH) 44.3 Ml [place], 2 SPRAY PO PRN Q15MIN PRN for DRY MOUTH for 14 Days, #30 SPRAY Prov:LASHAUN SOMMER MD 04/30/18 Budesonide (BUDESONIDE) 0.5 Mg/2 Ml Ampul.neb, 0.5 MG NEB RTBID for LUNGS for 14 Days, #30 EACH Prov:LASHAUN SOMMER MD 04/30/18 Guaifenesin/Dextromethorphan (GUAIFENESIN DM SYRUP) 5 Ml Syrup, 10 ML PO PRN Q6HRS PRN for COUGH 1ST CHOICE for 10 Days, #120 MISC Prov:LASHAUN SOMMER MD 04/30/18 Codeine Sulfate (CODEINE SULFATE) 30 Mg Tablet, 30 MG PO PRN Q6HRS PRN for cough 2ND CHOICE for 10 Days, #30 TAB Prov:LASHAUN SOMMER MD 04/30/18 Enoxaparin Sodium (ENOXAPARIN SODIUM) 40 Mg/0.4 Ml Disp.syrin, 40 MG SQ Q24H for PREVENT DVT for 14 Days, #14 DIS.SYR Prov:LASHAUN SOMMER MD 04/30/18 Ipratropium/Albuterol Sulfate (DUONEB 0.5-3(2.5) MG/3 ML) 3 Ml Ampul.neb, 3 ML NEB RTQID for LUNGS for 28 Days, #112 EACH Prov:LASHAUN SOMMER MD 04/30/18 Amoxicillin/Potassium Clav (AMOX TR-K CLV 400-57/5 SUSP) 400 Mg/5 Ml Susp.recon , 10 ML PEG Q12HR for ANTIBIOTIC for 10 Days, #100 MISC Prov:LASHAUN SOMMER MD 04/30/18 Reported Medications Hydrocodone/Acetaminophen (Hydrocodone-Acetamn 7.5-325/15) 15 Ml Solution, 15 ML PO Q4HRS for pain, #300 ML 04/18/18 Discontinued Reported Medications Hydroxychloroquine Sulfate (PLAQUENIL) 200 Mg Tablet, 200 MG PO BID for arthritis, TAB 04/18/18 Sulindac (SULINDAC) 200 Mg Tablet, 200 MG PO BID for arthritis, TAB 04/18/18 Ibuprofen (IBUPROFEN) 600 Mg Tablet, 600 MG PO PRN Q6HRS PRN for INFLAMMATION, TAB 04/18/18 LASHAUN SOMMER MD Apr 30, 2018 12:47
--- NOTE | 2018-04-30 14:01 | NUR ---
SW following. Pt will discharge to [facility] today at 1430. RN notified. Pt choice and rights letter signed and placed on chart. No further SW needs.
[2018-04-30] MEDS ORDERED: HEPARIN PF 500 UNIT/5 ML DISP.SYRIN. IV ONE (15:00)
--- NOTE | 2018-04-30 18:30 | NUR ---
Pt discharged to longterm facility by w/c. Report given to nurse Cortés. Port packed with heparin per protocol and de-accessed. No changes from previous assessment.
--- NOTE | 2018-06-25 15:00 | RAD ---
Fluoroscopic evaluation, left subclavian Port-A-Cath April 25, 2018 Indication: Difficulty accessing port Discussion: The patient has a left subclavian Port-A-Cath. The port was somewhat difficult to access secondary to body habitus. The port was evaluated fluoroscopically and found to be malpositioned with tip projecting over the left brachycephalic vein. The port was accessed under fluoroscopic guidance. Contrast was injected demonstrating the catheter be within the left brachycephalic vein. No fracture is identified. No other abnormality is seen. The port was deaccessed. Sterile dressings were applied. Fluoroscopy time: 3.8 minutes Dose area product: 12 Gycm2 Impression: Left subclavian port with catheter tip in the left brachiocephalic vein.
== END 2018-04-30 18:30 | DRG 919 ==
LOC: 4 NORTH 20:10
PROVIDERS: ADMIT Internal Medicine; ATTEND Internal Medicine
PROC: 30233N1 Transfusion of Nonautologous Red Blood Cells into Peripheral Vein, Percutaneous Approach (ICD-10-PCS; principal; 2018-04-19)
PROC: 0DH64UZ Insertion of Feeding Device into Stomach, Percutaneous Endoscopic Approach (ICD-10-PCS; 2018-04-20)
DX: T85.528A Displacement of other gastrointestinal prosthetic devices, implants and grafts, initial encounter (principal); K65.9 Peritonitis, unspecified; E43 Unspecified severe protein-calorie malnutrition; J69.0 Pneumonitis due to inhalation of food and vomit; K94.23 Gastrostomy malfunction; C15.9 Malignant neoplasm of esophagus, unspecified; N13.30 Unspecified hydronephrosis; F32.9 Major depressive disorder, single episode, unspecified; D64.9 Anemia, unspecified; E87.6 Hypokalemia; R13.10 Dysphagia, unspecified; Z82.49 Family history of ischemic heart disease and other diseases of the circulatory system; Z85.01 Personal history of malignant neoplasm of esophagus; Z90.49 Acquired absence of other specified parts of digestive tract
CPT/HCPCS: 36415; 36598; 71045; 74018; 74176; 76770; 77001; 80048; 80053; 81001; 83605; 85007; 85014; 85018; 85025; 85610; 86850; 86900; 86901; 86920; 87040; 87641; 94640; 94760; A7015; J0330; J0696; J1100; J1650; J2001; J2270; J2405; J2543; J2704; J2710; J3010; J3490; J7030; J7120; J7620; J7626; P9016; Q9967; 92610; 97110; 97116; 97530; 97535; G0378